=== PATIENT | female | born 1935 | race Caucasian/White ===

== ENCOUNTER 2019-05-01 09:54 | Inpatient (IN) | payer MEDICARE, OTHER ==
[~2019-05-01] VITALS: Ht 160 cm; Wt 108.9 kg
[~2019-05-01 09:54] MED LIST: ACTOS15 MG PO; BILBERRY PO; CLOPIDOGREL75 MG PO; FLECAINIDE ACE100 MG PO; LEVEMIR 3M100 UNITS/ SQ; METOPROLOL TART25 MG PO; NOVALOG; NOVALOG SQ; NOVOLOG MI100 UNITS/ SQ; Z ARMOUR THYROID PO; Z VITAMIN D PO; Z.0.LANTUS100 UNIT/1 SQ; Z.0.MAGNESIUM400 MG; Z.0.VITAMIN B12-FO1 PO; Z.4.VITAMIN E400 UNI
--- OUTSIDE RECORDS SUMMARY | 2019-05-01 09:59 | XMS REPORT ---
Author Author [facility] Address Unknown Phone Unavailable Care Team Providers Care Director Supply Name Role Phone Unavailable Unavailable Problems This patient has no known problems. Allergies, Adverse Reactions, Alerts This patient has no known allergies or adverse reactions. Medications This patient has no known medications.
--- OUTSIDE RECORDS SUMMARY | 2019-05-01 09:59 | XMS REPORT | Summary of Care ---
Author Organization Unknown Address Unknown Phone Unavailable Encounter VINCENZO Ramos(RADHA) [id number] Date(s): 09/12/14 - 09/12/14 [facility] [address] [address] - [facility] Discharge Diagnosis: Acute head injury Discharge Diagnosis: Accidental fall Discharge Disposition: Home Physician Attending: Fazal Yousif MD Reason for Visit FALL Vital Signs Most recent to 1 2 oldest [Reference Range]: Height 162.56 cm (09/12/14 12:08 AM) Temperature Oral 98.9 DegF 100.1 DegF [96.4-99.1 DegF] (09/12/14 3:00 AM) *HI* (09/12/14 12:08 AM) Systolic Blood 148 mmHg 152 mmHg Pressure [90-140 *HI* *HI* mmHg] (09/12/14 3:00 AM) (09/12/14 12:08 AM) Diastolic Blood 76 mmHg 73 mmHg Pressure [60-90 (09/12/14 3:00 AM) (09/12/14 12:08 AM) mmHg] Respiratory Rate 20 BRMIN 20 BRMIN [14-20 BRMIN] (09/12/14 3:00 AM) (09/12/14 12:08 AM) Peripheral Pulse 102 bpm 110 bpm Rate [60-100 bpm] *HI* *HI* (09/12/14 3:00 AM) (09/12/14 12:08 AM) Weight 100 kg (09/12/14 12:08 AM) Body Mass Index 37.84 m2 (09/12/14 12:08 AM) Problem List Condition Effective Dates Status Health Status Informant Diabetes(Confirmed) Active High Active triglycerides(Confir med) Hypothyroid(Confirme Active d) Pain(Confirmed) Active Allergies, Adverse Reactions, Alerts Substance Reaction Severity Status NKDA Active Medications acetaminophen 650 mg, 2 tab, Route: PO, Drug form: TAB, ONCE, Dosing Weight 100, kg, Priority: STAT, Start date: 09/12/14 2:13:00, Stop date: 09/12/14 2:13:00 Notes: Do not exceed 4 gm/day. (Same as: Tylenol) Start Date: 09/12/14 Stop Date: 09/12/14 Status: Completed azithromycin 500 mg, 2 tab, Route: PO, Drug form: TAB, ONCE, Dosing Weight 100, kg, Start kit e: 09/12/14 2:12:00, Stop date: 09/12/14 2:12:00 Notes: Take 1 hour before or 2 hours after meals.(Same As: Zithromax) Start Date: 09/12/14 Stop Date: 09/12/14 Status: Completed azithromycin 500 mg oral tablet 500 mg=1 tab, PO, Daily, # 10 tab, 0 Refill(s) Start Date: 09/12/14 Stop Date: 09/22/14 Status: Ordered Results ELECTROLYTES Most recent to 1 oldest [Reference Range]: Sodium Lvl [135-145 132 mEq/L mEq/L] *LOW* (09/12/14 12:54 AM) Potassium Lvl 3.9 mEq/L [3.5-5.1 mEq/L] (09/12/14 12:54 AM) Chloride Lvl [95-109 99 mEq/L mEq/L] (09/12/14 12:54 AM) CO2 [24-32 mEq/L] 24 mEq/L (09/12/14 12:54 AM) AGAP [10.0-20.0 12.9 mEq/L mEq/L] (09/12/14 12:54 AM) CHEM PANEL Most recent to 1 oldest [Reference Range]: Creatinine Lvl 0.7 mg/dL [0.5-1.4 mg/dL] (09/12/14 12:54 AM) eGFR 83 mL/min/1.73m2 1 *NA* (09/12/14 12:54 AM) BUN [7-22 mg/dL] 13 mg/dL (09/12/14 12:54 AM) B/C Ratio [6-25] 19 (09/12/14 12:54 AM) Glucose Lvl [70-99 220 mg/dL 2 mg/dL] *HI* (09/12/14 12:54 AM) Total Protein 8.0 g/dL [6.4-8.4 g/dL] (09/12/14 12:54 AM) Albumin Lvl [3.5-5.0 3.5 g/dL g/dL] (09/12/14 12:54 AM) Globulin [2.0-4.0 4.5 g/dL g/dL] *HI* (09/12/14 12:54 AM) A/G Ratio [0.7-1.6] 0.8 (09/12/14 12:54 AM) Calcium Lvl 8.6 mg/dL [8.5-10.5 mg/dL] (09/12/14 12:54 AM) ALT [0-65 unit/L] 50 unit/L (09/12/14 12:54 AM) AST [0-37 unit/L] 56 unit/L *HI* (09/12/14 12:54 AM) Alk Phos [39-136 128 unit/L unit/L] (09/12/14 12:54 AM) Bili Total [0.2-1.3 0.3 mg/dL mg/dL] (09/12/14 12:54 AM) 1Result Comment: The eGFR is calculated using the CKD-EPI formula. In most young, healthy individuals the eGFR will be >90 mL/min/1.73m2. The eGFR declines with age. An eGFR of 60-89 may be normal in some populations, particularly the elderly, for whom the CKD-EPI formula has not been extensively validated. Use of the eGFR is not recommended in the following populations: Individuals with unstable creatinine concentrations, including patients and those with serious co-morbid conditions. Patients with extremes in muscle mass or diet. The data above are obtained from the National Kidney Disease Education Program ( NKDEP) which additionally recommends that when the eGFR is used in patients with extremes of body mass index for purposes of drug dosing, the eGFR should be mul tiplied by the estimated BMI. 2Interpretive Data: Adult reference range values reflect the clinical guidelines of the [place] [employer]. URINE AND STOOL Most recent to 1 oldest [Reference Range]: UA Turbidity [Clear] Clear (09/12/14 12:57 AM) UA Color Ltyellow *NA* (09/12/14 12:57 AM) UA pH [5.0-8.0] 5.0 (09/12/14 12:57 AM) UA Spec Grav 1.014 [<=1.030] (09/12/14 12:57 AM) UA Glucose [Negative 500 mg/dL mg/dL] *ABN* (09/12/14 12:57 AM) UA Blood [Negative] Small *ABN* (09/12/14 12:57 AM) UA Ketones [Negative Trace mg/dL mg/dL] *ABN* (09/12/14 12:57 AM) UA Protein [Negative 30 mg/dL mg/dL] *ABN* (09/12/14 12:57 AM) UA Urobilinogen <=1.0 mg/dL [0.1-1.0 mg/dL] *NA* (09/12/14 12:57 AM) UA Bili [Negative] Negative *NA* (09/12/14 12:57 AM) UA Leuk Est Negative [Negative] (09/12/14 12:57 AM) UA Nitrite Negative [Negative] (09/12/14 12:57 AM) UA WBC [0-5 /HPF] 5 /HPF (09/12/14 12:57 AM) UA RBC [0-2 /HPF] 3 /HPF *HI* (09/12/14 12:57 AM) UA Bacteria [None Many /HPF Seen /HPF] *ABN* (09/12/14 12:57 AM) UA Sq Epi [Few /LPF] Occasional /LPF *NA* (09/12/14 12:57 AM) UA Mucus [None Seen Few /LPF /LPF] *NA* (09/12/14 12:57 AM) HEMATOLOGY Most recent to 1 oldest [Reference Range]: WBC [3.7-10.4 K/CMM] 10.0 K/CMM (09/12/14 12:54 AM) RBC [4.20-5.40 4.73 M/CMM M/CMM] (09/12/14 12:54 AM) Hgb [12.0-16.0 g/dL] 13.2 g/dL (09/12/14 12:54 AM) Hct [36.0-48.0 %] 39.6 % (09/12/14 12:54 AM) MCV [80.0-98.0 fL] 83.8 fL (09/12/14 12:54 AM) MCH [27.0-31.0 pg] 27.9 pg (09/12/14 12:54 AM) MCHC [32.0-36.0 33.4 g/dL g/dL] (09/12/14 12:54 AM) RDW [11.5-14.5 %] 15.5 % *HI* (09/12/14 12:54 AM) Platelet [133-450 148 K/CMM K/CMM] (09/12/14 12:54 AM) MPV [7.4-10.4 fL] 7.4 fL (09/12/14 12:54 AM) Segs [45.0-75.0 %] 83.4 % *HI* (09/12/14 12:54 AM) Lymphocytes 8.3 % [20.0-40.0 %] *LOW* (09/12/14 12:54 AM) Monocytes [2.0-12.0 7.5 % %] (09/12/14 12:54 AM) Eosinophils [0.0-4.0 0.1 % %] (09/12/14 12:54 AM) Basophils [0.0-1.0 0.7 % %] (09/12/14 12:54 AM) Segs-Bands # 8.4 K/CMM [1.5-8.1 K/CMM] *HI* (09/12/14 12:54 AM) Lymphocytes # 0.8 K/CMM [1.0-5.5 K/CMM] *LOW* (09/12/14 12:54 AM) Monocytes # [0.0-0.8 0.8 K/CMM K/CMM] (09/12/14 12:54 AM) Basophils # [0.0-0.2 0.1 K/CMM K/CMM] (09/12/14 12:54 AM) Medications Administered During Your Visit No data available for this section Immunizations Vaccine Date Refusal Reason diphtheria/pertussis, acel/tetanus adult 3/15/12 Procedures Procedure Type Body Site Date of Procedure Related Diagnosis Mastectomy of left breast Urethral operation Social History Social History Type Response Smoking Status Unknown if ever smoked, Exposure to Tobacco Smoke None, Cigarette Smoking Last 365 Days No, Reg Smoking Cessation Counseling No
--- OUTSIDE RECORDS SUMMARY | 2019-05-01 09:59 | XMS REPORT | Summary of Care ---
Author Organization Unknown Address Unknown Phone Unavailable Encounter [facility] Cristar_jane(FIN) [id number] Date(s): 11/23/14 - 12/22/14 [facility] Discharge Disposition: Home Physician Attending: Nadir Chatterjee MD Vital Signs No data available for this section Problem List Condition Effective Dates Status Health Status Informant Diabetes(Confirmed) Active High Active triglycerides(Confir med) Hypothyroid(Confirme Active d) Pain(Confirmed) Active Allergies, Adverse Reactions, Alerts Substance Reaction Severity Status NKDA Active Medications No data available for this section Results No data available for this section Immunizations Vaccine Date Refusal Reason diphtheria/pertussis, acel/tetanus adult 11/12/11 Procedures Procedure Date Related Diagnosis Body Site Mastectomy of left breast Urethral operation Social History Social History Type Response Smoking Status Unknown if ever smoked; Exposure to Tobacco Smoke None; Cigarette Smoking Last 365 Days No; Reg Smoking Cessation Counseling No Assessment and Plan No data available for this section
--- OUTSIDE RECORDS SUMMARY | 2019-05-01 09:59 | XMS REPORT | Summary of Care ---
Author Author [facility] [place] Organization [facility] [place] Address Unknown Phone Unavailable Encounter [facility] Richard(FIN) [id number] Date(s): 08/18/17 - 08/18/17 [facility] [address] [place] [phone] Discharge Disposition: Home or Self Care Attending Physician: Flex Pena MD Vital Signs No data available for this section Problem List Condition Effective Dates Status Health Status Informant Diabetes(Confirmed) Active High Active triglycerides(Confir med) Hypothyroid(Confirme Active d) Pain(Confirmed) Active Allergies, Adverse Reactions, Alerts Substance Reaction Severity Status NKDA Active Medications No data available for this section Results No data available for this section Immunizations Given and Recorded Vaccine Date Status Refusal Reason diphtheria/pertussis, acel/tetanus adult 11/12/11 Given Procedures Procedure Date Related Diagnosis Body Site Mastectomy of left breast Urethral operation Social History Social History Type Response Smoking Status Unknown if ever smoked; Exposure to Tobacco Smoke None; Cigarette Smoking Last 365 Days No; Reg Smoking Cessation Counseling No Assessment and Plan No data available for this section
--- OUTSIDE RECORDS SUMMARY | 2019-05-01 09:59 | XMS REPORT | CCD ---
Author Author Auto Generated Organization [facility] Address Unknown Phone Unavailable Care Team Providers Care Assembler Filters Name Role Phone Edu Swift CP Allergies, Adverse Reactions, Alerts Substance Reaction Status acetaminophen Canceled all over the counter asprin Canceled Bextra Canceled Macrodantin Canceled naproxen Canceled NKDA Active Vioxx Canceled Problem List Condition Effective Dates Status Pain Active Medications Medication Instructions Start Date End Date Status Lovenox 40 mg, 0.4 mL, Route: SUB-Q, Drug 11/14/2011 11/18/2011 Discontinued form: INJ, Daily, Start date: 11/14/11 9:00:00, Duration: 30 day, Stop date: 12/13/11 9:00:00 bisacodyl 10 mg, 1 supp, Route: MN, Drug 11/17/2011 11/18/2011 Discontinued form: SUPP, Daily, PRN Constipation, Priority: NOW, Start date: 11/17/11 14:13:00, Duration: 30 day, Stop date: 12/17/11 14:12:00 metoprolol 12.5 mg, 1 ea, Route: PO, Drug 11/13/2011 11/14/2011 Discontinued form: TAB, BID, Start date: 11/13/11 9:00:00, Duration: 30 day, Stop date: 12/12/11 17:00:00 [place] Thyroid 120 mg, 2 tab, Route: PO, Drug 11/13/2011 11/18/2011 Discontinued form: TAB, Daily, Start date: 11/13/11 9:00:00, Duration: 30 day, Stop date: 12/12/11 9:00:00 Lantus Route: SUB-Q, Drug form: INJ, 11/13/2011 11/18/2011 Discontinued Bedtime, Start date: 11/13/11 21:00:00, Duration: 30 day, Stop date: 12/12/11 21:00:00 aspirin 81 mg 81 mg, 1 tab, Route: PO, Drug form: 11/13/2011 11/18/2011 Discontinued tablet, enteric ECTAB, Daily, Start date: 11/13/11 coated 9:00:00, Duration: 30 day, Stop date: 12/12/11 9:00:00 lactulose 10 gm, 15 ml, Route: PO, Drug Form: 11/17/2011 11/18/2011 Discontinued SYRP, QID, PRN Constipation, Start date: 11/17/11 13:55:00, Duration: 30 day, Stop date: 12/17/11 13:54:00 insulin aspart 15 unit, 0.15 mL, Route: SUB-Q, 11/14/2011 11/18/2011 Discontinued Drug form: SOLN, TID, Priority: NOW, Start date: 11/14/11 16:06:00, Stop date: 12/14/11 13:00:00 propofol 100 mg, 10 mL, Route: IVP, Drug 11/12/2011 11/12/2011 Discontinued form: SUSP, ONCE, Priority: STAT, Start date: 11/12/11 21:43:00, Stop date: 11/12/11 21:43:00 fentanyl 50 microgram, 1 mL, Route: IVP, 11/12/2011 11/12/2011 Completed Drug form: INJ, ONCE, Priority: STAT, Start date: 11/12/11 21:43:00, Stop date: 11/12/11 21:43:00 gentamicin 668.185 mg, 16.7 mL, Route: IVPB, 11/12/2011 11/13/2011 Completed ONCE, Priority: STAT, Start date: 11/12/11 21:42:00, Stop date: 11/12/11 21:42:00 [place] Thyroid 120 120 mg, 1 tab, Daily, Substitution 11/13/2011 Ordered mg oral tablet Allowed Dilaudid 1 mg, 0.5 mL, Route: IV, Drug form: 11/13/2011 11/16/2011 Discontinued INJ, Q3H, PRN Pain, Start date: 11/13/11 6:46:00, Duration: 30 day, Stop date: 12/13/11 6:45:00 aspirin 81 mg 81 mg, 1 tab, PO, Daily, 11/13/2011 Ordered tablet, enteric Substitution Allowed coated tetanus-diphtheria 0.5 ml, Route: IM, Drug Form: INJ, 11/12/2011 11/12/2011 Discontinued toxoids adult ONCE, STAT, Start date: 11/12/11 intramuscular 21:41:00, Stop date: 11/12/11 suspension 21:41:00 cefazolin 1 gm, Route: IVPB, Drug form: 11/12/2011 11/12/2011 Completed PDR/INJ, ONCE, Priority: STAT, Start date: 11/12/11 21:41:00, Stop date: 11/12/11 21:41:00 [place] 5/325 oral 1 tab, Route: PO, Drug Form: TAB, 11/13/2011 11/16/2011 Discontinued tablet Q6H, Start date: 11/13/11 12:00:00, Duration: 30 day, Stop date: 12/13/11 6:00:00 Lantus 45units, SUB-Q, Bedtime, 11/13/2011 Ordered Substitution Allowed hydromorphone 1 mg, 0.5 mL, Route: IVP, Drug 11/13/2011 11/13/2011 Completed form: INJ, ONCE, Priority: STAT, Start date: 11/13/11 2:11:00, Stop date: 11/13/11 2:11:00 NovoLog 15 unit, SUB-Q, TID-Before Meals, 11/13/2011 Ordered Substitution Allowed Ativan 0.5 mg, 0.25 mL, Route: IVP, Drug 11/13/2011 11/13/2011 Completed form: INJ, ONCE, PRN Anxiety, Start date: 11/13/11 2:11:00 insulin aspart 1 unit, 0.01 mL, Route: SUB-Q, Drug 11/13/2011 11/17/2011 Discontinued form: SOLN, TID-Before Meals, PRN Blood Glucose Results, Start date: 11/13/11 4:12:00, Duration: 30 day, Stop date: 12/13/11 4:11:00 insulin aspart 4 unit, 0.04 mL, Route: SUB-Q, Drug 11/13/2011 11/17/2011 Discontinued form: SOLN, TID-Before Meals, PRN Blood Glucose Results, Start date: 11/13/11 4:12:00, Duration: 30 day, Stop date: 12/13/11 4:11:00 insulin aspart 2 unit, 0.02 mL, Route: SUB-Q, Drug 11/13/2011 11/17/2011 Discontinued form: SOLN, TID-Before Meals, PRN Blood Glucose Results, Start date: 11/13/11 4:12:00, Duration: 30 day, Stop date: 12/13/11 4:11:00 insulin aspart 3 unit, 0.03 mL, Route: SUB-Q, Drug 11/13/2011 11/17/2011 Discontinued form: SOLN, TID-Before Meals, PRN Blood Glucose Results, Start date: 11/13/11 4:12:00, Duration: 30 day, Stop date: 12/13/11 4:11:00 insulin aspart 5 unit, 0.05 mL, Route: SUB-Q, Drug 11/13/2011 11/17/2011 Discontinued form: SOLN, TID-Before Meals, PRN Blood Glucose Results, Start date: 11/13/11 4:12:00, Duration: 30 day, Stop date: 12/13/11 4:11:00 ketorolac 30 mg/mL 30 mg, Route: IVP, ONCE, Start 11/13/2011 11/13/2011 Completed injectable solution date: 11/13/11 16:02:00, Stop date: 11/13/11 16:02:00 lactulose 10 g/15 mL 10 gm, 15 mL, PO, QID, PRN, 840 mL, 11/18/2011 12/02/2011 Ordered oral syrup Constipation, Substitution Allowed, Maintenance, SYRP Lovenox 40 mg/0.4 mL 40 mg, 0.4 mL, SUB-Q, Daily, 8 mL, 11/18/2011 12/08/2011 Ordered subcutaneous Substitution Allowed, SOLN solution Milk of Magnesia 10 mL, Route: PO, Drug Form: SUSP, 11/16/2011 11/18/2011 Discontinued BID, PRN as needed for constipation, NOW, Start date: 11/16/11 11:31:00, Duration: 30 day, Stop date: 12/16/11 11:30:00 Senokot S oral 2 tab, PO, BID, 56 tab, 11/18/2011 12/02/2011 Ordered tablet Substitution Allowed, Maintenance, TAB bisacodyl 10 mg 10 mg, 1 supp, MN, Daily, PRN, 14 11/18/2011 12/02/2011 Ordered rectal suppository supp, Constipation, Substitution Allowed, SUPP acetaminophen-hydroc 1 tab, PO, Q4H, PRN, 84 tab, Pain 11/18/2011 12/02/2011 Ordered odone 325 mg-5 mg Score 1-3, Substitution Allowed, oral tablet Maintenance, TAB insulin aspart 10 unit, 0.1 mL, Route: SUB-Q, Drug 11/17/2011 11/18/2011 Discontinued form: SOLN, TID-Before Meals, PRN Blood Glucose Results, Start date: 11/17/11 20:24:00, Duration: 30 day, Stop date: 12/17/11 20:23:00 insulin aspart 2 unit, 0.02 mL, Route: SUB-Q, Drug 11/17/2011 11/18/2011 Discontinued form: SOLN, TID-Before Meals, PRN Blood Glucose Results, Start date: 11/17/11 20:24:00, Duration: 30 day, Stop date: 12/17/11 20:23:00 insulin aspart 4 unit, 0.04 mL, Route: SUB-Q, Drug 11/17/2011 11/18/2011 Discontinued form: SOLN, TID-Before Meals, PRN Blood Glucose Results, Start date: 11/17/11 20:24:00, Duration: 30 day, Stop date: 12/17/11 20:23:00 insulin aspart 8 unit, 0.08 mL, Route: SUB-Q, Drug 11/17/2011 11/18/2011 Discontinued form: SOLN, TID-Before Meals, PRN Blood Glucose Results, Start date: 11/17/11 20:24:00, Duration: 30 day, Stop date: 12/17/11 20:23:00 insulin aspart 6 unit, 0.06 mL, Route: SUB-Q, Drug 11/17/2011 11/18/2011 Discontinued form: SOLN, TID-Before Meals, PRN Blood Glucose Results, Start date: 11/17/11 20:24:00, Duration: 30 day, Stop date: 12/17/11 20:23:00 lactulose 10 gm, 15 ml, Route: PO, Drug Form: 11/17/2011 11/18/2011 Discontinued SYRP, QID, PRN Constipation, Start date: 11/17/11 18:08:00, Duration: 30 day, Stop date: 12/17/11 18:07:00 promethazine 12.5 mg, Route: IVPB, ONCE, 11/12/2011 11/12/2011 Completed Priority: STAT, Start date: 11/12/11 22:25:00, Stop date: 11/12/11 22:25:00 acetaminophen-hydroc 2 tab, Route: PO, Drug Form: TAB, 11/13/2011 11/18/2011 Discontinued odone 325 mg-5 mg Q4H, PRN Pain Score 4-6, Start oral tablet date: 11/13/11 4:09:00, Duration: 30 day, Stop date: 12/13/11 4:08:00 acetaminophen 650 mg, 2 tab, Route: PO, Drug 11/13/2011 11/18/2011 Discontinued form: TAB, Q4H, PRN Pain/Fever, Start date: 11/13/11 4:09:00, Duration: 30 day, Stop date: 12/13/11 4:08:00 temazepam 15 mg, 1 cap, Route: PO, Drug form: 11/13/2011 11/18/2011 Discontinued CAP, Bedtime, PRN Insomnia, Start date: 11/13/11 4:09:00, Duration: 30 day, Stop date: 12/13/11 4:08:00 morphine Sulfate 2 mg, 0.5 mL, Route: IVP, Drug 11/13/2011 11/13/2011 Discontinued form: INJ, Q3H, PRN Pain Score 4-6, Start date: 11/13/11 4:09:00, Duration: 30 day, Stop date: 12/13/11 4:08:00 acetaminophen-hydroc 1 tab, Route: PO, Drug Form: TAB, 11/13/2011 11/18/2011 Discontinued odone 325 mg-5 mg Q4H, PRN Pain Score 1-3, Start oral tablet date: 11/13/11 4:09:00, Duration: 30 day, Stop date: 12/13/11 4:08:00 docusate 100 mg, 1 cap, Route: PO, Drug 11/13/2011 11/18/2011 Discontinued form: CAP, BID, PRN Constipation, Start date: 11/13/11 4:09:00, Duration: 30 day, Stop date: 12/13/11 4:08:00 ondansetron 4 mg, 2 mL, Route: IVP, Drug form: 11/13/2011 11/18/2011 Discontinued INJ, Q6H, PRN Nausea & Vomiting, Start date: 11/13/11 4:09:00, Duration: 30 day, Stop date: 12/13/11 4:08:00 morphine Sulfate 4 mg, 1 mL, Route: IVP, Drug form: 11/12/2011 11/13/2011 Completed INJ, ONCE, Priority: STAT, Start date: 11/12/11 22:25:00, Stop date: 11/12/11 22:25:00 Sodium Chloride 0.9% 1,000 mL, Rate: 1,000 ml/hr, Infuse 11/12/2011 11/12/2011 Completed (Bolus) IV 1000 mL over: 1 hr, Route: IV, kg, Total Volume: 1,000, Bolus Dose, Priority: STAT, Start date: 11/12/11 22:25:00, Duration: 1 doses or times, Stop date: 11/12/11 23:24:00 NS 1,000 mL 1,000 mL, Rate: 100 ml/hr, Infuse 11/13/2011 11/14/2011 Discontinued over: 10 hr, Route: IV, Dosing Weight 101.4 kg, Total Volume: 1,000, Start date: 11/13/11 4:12:00, Duration: 30 day, Stop date: 12/13/11 4:11:00 droperidol 1.25 mg, 0.5 mL, Route: IVP, Drug 11/12/2011 11/12/2011 Completed form: INJ, ONCE, PRN Nausea & Vomiting, Start date: 11/12/11 21:47:00 Zofran 8 mg, Route: IV, ONCE, Start date: 11/12/2011 11/12/2011 Completed 11/12/11 21:47:00, Stop date: 11/12/11 21:47:00 Senokot S oral 2 tab, Route: PO, Drug Form: TAB, 11/17/2011 11/18/2011 Discontinued tablet BID, NOW, Start date: 11/17/11 18:06:00, Duration: 30 day, Stop date: 12/17/11 17:00:00 tetanus/diphtheria/p 0.5 ml, Route: IM, ONCE, Start 11/12/2011 11/12/2011 Completed ertussis, acel date: 11/12/11 21:59:00, Stop date: (Tdap) 5 units-2.5 11/12/11 21:59:00 units-18.5 mcg/0.5 mL intramuscular suspensio propofol 30 mg, 3 mL, Route: IVP, Drug form: 11/12/2011 11/12/2011 Completed SUSP, ONCE, Start date: 11/12/11 22:22:00, Stop date: 11/12/11 22:22:00 fentanyl 50 microgram, 1 mL, Route: IVP, 11/12/2011 11/12/2011 Completed Drug form: INJ, ONCE, Priority: STAT, Start date: 11/12/11 22:21:00, Stop date: 11/12/11 22:21:00 propofol 70 mg, 7 mL, Route: IVP, Drug form: 11/12/2011 11/12/2011 Completed SUSP, ONCE, Start date: 11/12/11 22:21:00, Stop date: 11/12/11 22:21:00 Ancef 1 gm, Route: IVPB, Drug form: 11/13/2011 11/13/2011 Discontinued PDR/INJ, [id number], Start date: 11/13/11 5:00:00, Stop date: 12/12/11 21:00:00 Sodium Chloride 0.9% 1,000 mL, Rate: 100 ml/hr, Infuse 11/13/2011 11/13/2011 Discontinued IV 1,000 mL over: 10 hr, Route: IV, Dosing Weight 101.4 kg, Total Volume: 1,000, Start date: 11/13/11 3:13:00, Duration: 30 day, Stop date: 12/13/11 3:12:00 insulin regular 3 unit, 0.03 mL, Route: SUB-Q, Drug 11/15/2011 11/17/2011 Discontinued human recombinant form: SOLN, PRN, PRN Abnormal Lab 100 units/mL Result, Start date: 11/15/11 injectable solution 10:22:00, Duration: 30 day, Stop date: 12/15/11 10:21:00 Dextrose 50% Syringe 6.25 gm, 12.5 mL, Route: IVP, Drug 11/15/2011 11/18/2011 Discontinued Form: INJ, PRN, PRN Abnormal Lab Result, Start date: 11/15/11 10:22:00, Duration: 30 day, Stop date: 12/15/11 10:21:00 Dextrose 50% Syringe 12.5 gm, 25 mL, Route: IVP, Drug 11/15/2011 11/18/2011 Discontinued Form: INJ, PRN, PRN Abnormal Lab Result, Start date: 11/15/11 10:22:00, Duration: 30 day, Stop date: 12/15/11 10:21:00 Dextrose 50% Syringe 25 gm, 50 mL, Route: IVP, Drug 11/15/2011 11/18/2011 Discontinued Form: INJ, PRN, PRN Abnormal Lab Result, Start date: 11/15/11 10:22:00, Duration: 30 day, Stop date: 12/15/11 10:21:00 insulin regular 7 unit, 0.07 mL, Route: SUB-Q, Drug 11/15/2011 11/17/2011 Discontinued human recombinant form: SOLN, PRN, PRN Abnormal Lab 100 units/mL Result, Start date: 11/15/11 injectable solution 10:22:00, Duration: 30 day, Stop date: 12/15/11 10:21:00 insulin regular 5 unit, 0.05 mL, Route: SUB-Q, Drug 11/15/2011 11/17/2011 Discontinued human recombinant form: SOLN, PRN, PRN Abnormal Lab 100 units/mL Result, Start date: 11/15/11 injectable solution 10:22:00, Duration: 30 day, Stop date: 12/15/11 10:21:00 hydromorphone 1 mg, 0.5 mL, Route: IVP, Drug 11/13/2011 11/13/2011 Completed form: INJ, ONCE, Priority: STAT, Start date: 11/13/11 4:00:00, Stop date: 11/13/11 4:00:00 cefazolin 1 gm, Route: IVPB, Drug form: 11/13/2011 11/16/2011 Completed PDR/INJ, ABXQ8H, Start date: 11/13/11 15:00:00, Duration: 72 hr, Stop date: 11/16/11 4:00:00 Lactated Ringers IV 1,000 mL, Rate: 125 ml/hr, Infuse 11/13/2011 11/18/2011 Discontinued 1,000 mL over: 8 hr, Route: IV, Dosing Weight 101.3 kg, Total Volume: 1,000, Start date: 11/13/11 14:56:00, Duration: 30 day, Stop date: 12/13/11 14:55:00 Immunizations Vaccine Date Status diphtheria/pertussis, acel/tetanus adult 11/12/2011 Auth (Verified) Vital Signs Most recent to oldest [Reference Range]: 1 2 3 Height 162.56 cm (11/12/2011 21:30:00) Temperature Oral [96.4-99.1 DegF] 98.1 DegF (11/18/2011 11:26:00) 98.2 DegF (11/18/2011 08:21:00) 98.0 DegF (11/18/2011 03:50:00) Systolic Blood Pressure [90-140 mmHg] 143 mmHg *HI* (11/18/2011 11:26:00) 125 mmHg (11/18/2011 08:21:00) 109 mmHg (11/18/2011 03:50:00) Diastolic Blood Pressure [60-90 mmHg] 56 mmHg *LOW* (11/18/2011 11:26:00) 56 mmHg *LOW* (11/18/2011 08:21:00) 51 mmHg *LOW* (11/18/2011 03:50:00) Respiratory Rate [14-20 BRMIN] 18 BRMIN (11/18/2011 11:26:00) 20 BRMIN (11/18/2011 08:21:00) 18 BRMIN (11/18/2011 03:50:00) Peripheral Pulse Rate [60-100 bpm] 76 bpm (11/18/2011 11:26:00) 66 bpm (11/18/2011 08:21:00) 97 bpm (11/18/2011 03:50:00) Weight 101.364 kg (11/12/2011 21:30:00) Results BEDSIDE GLUCOSE TESTING Most recent to [Reference Range]: 1 2 3 Gluc POC Lifscn [70-99 mg/dL] 151 mg/dL 1 *HI* (11/18/2011 12:14:00) 193 mg/dL 2 *HI* (11/18/2011 09:38:00) Gluc POC Lifscn [65-110 mg/dL] 150 mg/dL 3 *HI* (11/18/2011 06:03:00) Comment1 Notify RN/MD *NA* (11/16/2011 05:34:00) Notify RN/MD *NA* (11/15/2011 21:56:00) Notify RN/MD *NA* (11/15/2011 18:26:00) 1Interpretive Data: Upper Reportable Limit: 200 mg/dL. 2Interpretive Data: Upper Reportable Limit: 200 mg/dL. 3Interpretive Data: Upper Reportable Limit: 200 mg/dL. BLOOD BANK RESULTS Most recent to oldest [Reference Range]: 1 2 3 ABO/Rh O NEG *Unknown* (11/12/2011 21:42:00) Antibody Scrn Negative (11/12/2011 21:42:00) CHEMISTRY Most recent to oldest [Reference Range]: 1 2 3 Sodium Lvl [135-145 mEq/L] 137 mEq/L (11/14/2011 04:05:00) 139 mEq/L (11/12/2011 22:00:00) Potassium Lvl [3.5-5.1 mEq/L] 4.8 mEq/L (11/14/2011 04:05:00) 3.6 mEq/L (11/12/2011 22:00:00) Chloride Lvl [95-109 mEq/L] 104 mEq/L (11/14/2011 04:05:00) 102 mEq/L (11/12/2011 22:00:00) CO2 [24-32 mEq/L] 22 mEq/L *LOW* (11/14/2011 04:05:00) 26 mEq/L (11/12/2011 22:00:00) AGAP [10.0-20.0 mEq/L] 15.8 mEq/L (11/14/2011 04:05:00) 14.6 mEq/L (11/12/2011 22:00:00) Creatinine Lvl [0.5-1.4 mg/dL] 0.7 mg/dL (11/14/2011 04:05:00) 0.9 mg/dL (11/12/2011 22:00:00) BUN [7-22 mg/dL] 10 mg/dL (11/14/2011 04:05:00) 19 mg/dL (11/12/2011 22:00:00) B/C Ratio [6-25] 21 (11/12/2011 22:00:00) Glucose Lvl 161 mg/dL 4 *NA* (11/14/2011 04:05:00) 193 mg/dL 5 *NA* (11/12/2011 22:00:00) Total Protein [6.4-8.4 g/dL] 7.4 g/dL (11/12/2011 22:00:00) Albumin Lvl [3.5-5.0 g/dL] 3.4 g/dL *LOW* (11/12/2011 22:00:00) Globulin [2.0-4.0 g/dL] 4.0 g/dL (11/12/2011 22:00:00) A/G Ratio [0.7-1.6] 0.9 (11/12/2011 22:00:00) Calcium Lvl [8.5-10.5 mg/dL] 7.9 mg/dL *LOW* (11/14/2011 04:05:00) 9.2 mg/dL (11/12/2011 22:00:00) Phosphorus [2.5-4.5 mg/dL] 2.7 mg/dL (11/15/2011 05:12:00) 2.9 mg/dL (11/12/2011 22:00:00) Magnesium Lvl [1.8-2.4 mg/dL] 2.1 mg/dL (11/15/2011 05:12:00) 1.8 mg/dL (11/12/2011 22:00:00) ALT [0-65 U/L] 37 U/L (11/12/2011 22:00:00) AST [0-37 U/L] 21 U/L (11/12/2011 22:00:00) Alk Phos [39-136 U/L] 175 U/L *HI* (11/12/2011 22:00:00) Bili Total [0.2-1.3 mg/dL] 0.2 mg/dL (11/12/2011 22:00:00) Vitamin D, 25-OH, Total [30-100 ng/mL] 12 ng/mL 6 *LOW* (11/15/2011 05:12:00) Vitamin D2 25-OH <4 ng/mL 7 *NA* (11/15/2011 05:12:00) Vitamin D3 25-OH 12 ng/mL *NA* (11/15/2011 05:12:00) Hgb A1C 8.5 % 8 *NA* (11/13/2011 06:49:00) Osteocalcin, N-MID [8-32 ng/mL] 6 ng/mL 9 *LOW* (11/15/2011 05:12:00) TSH [0.360-3.740 uIU/mL] 1.170 uIU/mL (11/13/2011 06:49:00) PTH Intact [11.1-79.5 pg/mL] 38.3 pg/mL (11/15/2011 05:12:00) 4Interpretive Data: Reference Ranges : 0 - 7 days : 41 - 90 mg/dL7 days - 150 yrs : 70 - 99 mg/dL (fasting), based on the clinical recommendations of the [place] [employer]. 5Interpretive Data: Reference Ranges : 0 - 7 days : 41 - 90 mg/dL7 days - 150 yrs : 70 - 99 mg/dL (fasting), based on the clinical recommendations of the [place] [employer]. 6Result Comment: 25-OHD3 indicates both endogenous production andsupplementation. 25-OHD2 is an indicator ofexogenous sources such as diet or supplementation.Therapy is based on measurement of Total 25-OHD,with levels <20 ng/mL indicative of Vitamin Ddeficiency, while levels between 20 ng/mL and 30 ng/mL suggest insufficiency. Optimal levels are>=30 ng/mL. 7Result Comment: Test Performed at:[id number] [place] [address] Denise Mayer MD, PhD 8Interpretive Data: HbA1C% eAG(mg/dL) Interpretation 6.0 126 Very good control 6.5 140 Very good control 7.0 154 Good Control 7.5 169 Good Control 8.0 183 Marginal Control, take action to lower 8.5 197 Marginal Control, take action to lower 9.0 212 Poor Control, take action to lower 9.5 226 Poor Control, take action to lower10.0 240 Poor Control, take action to lower 9Result Comment: Test Performed at:[id number] [facility] [place] [address] Denise Mayer MD, PhD HEMATOLOGY Most recent to oldest [Reference Range]: 1 2 3 WBC [3.7-10.4 K/CMM] 7.6 K/CMM (11/17/2011 03:15:00) 9.8 K/CMM (11/16/2011 01:15:00) 10.6 K/CMM *HI* (11/14/2011 04:05:00) RBC [4.20-5.40 M/CMM] 3.42 M/CMM *LOW* (11/17/2011 03:15:00) 3.53 M/CMM *LOW* (11/16/2011 01:15:00) 3.88 M/CMM *LOW* (11/14/2011 04:05:00) Hgb [12.0-16.0 g/dL] 9.8 g/dL *LOW* (11/17/2011 03:15:00) 10.2 g/dL *LOW* (11/16/2011 01:15:00) 11.2 g/dL *LOW* (11/14/2011 04:05:00) Hct [36.0-48.0 %] 29.0 % *LOW* (11/17/2011 03:15:00) 29.9 % *LOW* (11/16/2011 01:15:00) 33.4 % *LOW* (11/14/2011 04:05:00) MCV [81.0-99.0 fL] 84.9 fL (11/17/2011 03:15:00) 84.6 fL (11/16/2011 01:15:00) 85.9 fL (11/14/2011 04:05:00) MCH [27.0-31.0 pg] 28.8 pg (11/17/2011 03:15:00) 28.8 pg (11/16/2011 01:15:00) 28.8 pg (11/14/2011 04:05:00) MCHC [32.0-36.0 g/dL] 33.8 g/dL (11/17/2011 03:15:00) 34.0 g/dL (11/16/2011 01:15:00) 33.5 g/dL (11/14/2011 04:05:00) RDW [11.5-14.5 %] 14.1 % (11/17/2011 03:15:00) 13.9 % (11/16/2011 01:15:00) 14.5 % (11/14/2011 04:05:00) Platelet [133-450 K/CMM] 220 K/CMM (11/17/2011 03:15:00) 185 K/CMM (11/16/2011 01:15:00) 171 K/CMM (11/14/2011 04:05:00) MPV [7.4-10.4 fL] 7.4 fL (11/17/2011 03:15:00) 7.0 fL *LOW* (11/16/2011 01:15:00) 7.2 fL *LOW* (11/14/2011 04:05:00) Segs [45.0-75.0 %] 63.9 % (11/17/2011 03:15:00) 69.0 % (11/16/2011 01:15:00) 67.1 % (11/14/2011 04:05:00) Lymphocytes [20.0-40.0 %] 26.4 % (11/17/2011 03:15:00) 23.6 % (11/16/2011 01:15:00) 22.7 % (11/14/2011 04:05:00) Monocytes [2.0-12.0 %] 7.2 % (11/17/2011 03:15:00) 5.0 % (11/16/2011 01:15:00) 8.4 % (11/14/2011 04:05:00) Eosinophils [0.0-4.0 %] 2.3 % (11/17/2011 03:15:00) 2.0 % (11/16/2011 01:15:00) 1.6 % (11/14/2011 04:05:00) Basophils [0.0-1.0 %] 0.2 % (11/17/2011 03:15:00) 0.4 % (11/16/2011 01:15:00) 0.2 % (11/14/2011 04:05:00) Segs-Bands # [1.5-8.1 K/CMM] 4.9 K/CMM (11/17/2011 03:15:00) 6.8 K/CMM (11/16/2011 01:15:00) 7.1 K/CMM (11/14/2011 04:05:00) Lymphocytes # [1.0-5.5 K/CMM] 2.0 K/CMM (11/17/2011 03:15:00) 2.3 K/CMM (11/16/2011 01:15:00) 2.4 K/CMM (11/14/2011 04:05:00) Monocytes # [0.0-0.8 K/CMM] 0.5 K/CMM (11/17/2011 03:15:00) 0.5 K/CMM (11/16/2011 01:15:00) 0.9 K/CMM *HI* (11/14/2011 04:05:00) Eosinophils # [0.0-0.5 K/CMM] 0.2 K/CMM (11/17/2011 03:15:00) 0.2 K/CMM (11/16/2011 01:15:00) 0.2 K/CMM (11/14/2011 04:05:00) Basophils # [0.0-0.2 K/CMM] 0.0 K/CMM (11/17/2011 03:15:00) 0.0 K/CMM (11/16/2011 01:15:00) 0.0 K/CMM (11/14/2011 04:05:00) RBC Morph Normal (11/12/2011 22:00:00) Plt Morph Normal (11/12/2011 22:00:00) PT [12.0-14.7 seconds] 12.1 seconds (11/12/2011 22:00:00) INR [0.85-1.17] 0.89 10 (11/12/2011 22:00:00) PTT [22.9-35.8 seconds] 20.1 seconds 11 *LOW* (11/12/2011 22:00:00) 10Interpretive Data: RECOMMENDED RANGES FOR PROTIME INR: 2.0-3.0 for most medical and surgical thromboembolic states. 2.5-3.5 for artificial heart valves and recurrent embolism.INR SHOULD BE USED ONLY FOR PATIENTS ON STABLE ANTICOAGULANT THERAPY. 11Interpretive Data: Heparin Therapeutic Range: 57 - 92 Seconds
--- OUTSIDE RECORDS SUMMARY | 2019-05-01 09:59 | XMS REPORT | Continuity of Care Document ---
Author Author [facility] Address Unknown Phone Unavailable Care Team Providers Care Branch Sales Manager Name Role Phone Feesheh Unavailable Unavailable Problems Problem Status Onset Date Classification Date Reported Comments Source Pain in throat 10/12/2018 [facility] Z[facility].31 - ENCNTR SCREEN MAMMOGRAM FOR MA Active 07/08/2017 [facility] [place] Discharge Diagnosis: Acute head injury 09/12/2014 09/14/2014 [facility] Discharge Diagnosis: Accidental fall 09/12/2014 09/14/2014 [facility] FALL Active 09/11/2014 [facility] [place] OPEN RT ANKLE Active 11/12/2011 [facility] Diabetes mellitus (disorder) Active Problem 04/26/2019 [facility] [place],[facility] [place], [facility] Hypertriglyceridemia (disorder) Active Problem 04/26/2019 EDGAR [place],[facility] [place], [facility] [place] Hypothyroidism (disorder) Active Problem 04/26/2019 [facility] [place],[facility] [place], [facility] Pain (finding) Active Problem 04/26/2019 EDGAR [place],[facility] [place], [facility] Encounter for screening mammogram for malignant neoplasm of breast 07/29/2017 [facility] [place] Pain Active Problem 11/20/2011 [facility] FX ANKLE NOS-OPEN Active [facility] LT SHOULDER TEAR/RT ANKLE Active [facility] [place] LT SHOULDER TEAR R/ANKLE Active [facility] [place] Medications Medication Details Route Status Patient Instructions Ordering Provider Order Date Source Acetaminophen 650 mg, 2 tab, Route: PO, Drug form: TAB, ONCE, Dosing Weight 100, kg, Priority: STAT, Start date: 09/12/14 2:13:00, Stop date: 09/12/14 2:13:00Notes: Do not exceed 4 gm/day. (Same as: Tylenol) Inactive 09/12/2014 [facility] Azithromycin 500 MG Oral Tablet 500 mg=1 tab, PO, Daily, # 10 tab, 0 Refill(s) Active 09/12/2014 [facility] Azithromycin 500 mg, 2 tab, Route: PO, Drug form: TAB, ONCE, Dosing Weight 100, kg, Start date: 09/12/14 2:12:00, Stop date: 09/12/14 2:12:00Notes: Take 1 hour before or 2 hours after meals. (Same As: Zithromax) Inactive 09/12/2014 [facility] lactulose 10 g/15 mL oral syrup 10 gm, 15 mL, PO, QID, PRN, 840 mL, Constipation, Substitution Allowed, Maintenance, SYRP PO Active [place] 11/18/2011 [facility] Lovenox 40 mg/0.4 mL subcutaneous solution 40 mg, 0.4 mL, SUB-Q, Daily, 8 mL, Substitution Allowed, SOLN SUB-Q Active [place] 11/18/2011 [facility] Senokot S oral tablet 2 tab, PO, BID, 56 tab, Substitution Allowed, Maintenance, TAB PO Active [place] 11/18/2011 [facility] bisacodyl 10 mg rectal suppository 10 mg, 1 supp, MI, Daily, PRN, 14 supp, Constipation, Substitution Allowed, SUPP MI Active [place] 11/18/2011 [facility] acetaminophen-hydrocodone 325 mg-5 mg oral tablet 1 tab, PO, Q4H, PRN, 84 tab, Pain Score 1-3, Substitution Allowed, Maintenance, TAB PO Active [place] 11/18/2011 [facility] insulin aspart 10 unit, 0.1 mL, Route: SUB-Q, Drug form: SOLN, TID-Before Meals, PRN Blood Glucose Results, Start date: 11/17/11 20:24:00, Duration: 30 day, Stop date: 12/17/11 20:23:00 SUB-Q No Longer Active [place] 11/18/2011 [facility] lactulose 10 gm, 15 ml, Route: PO, Drug Form: SYRP, QID, PRN Constipation, Start date: 11/17/11 18:08:00, Duration: 30 day, Stop date: 12/17/11 18:07:00 PO No Longer Active [place] 11/17/2011 [facility] Senokot S oral tablet 2 tab, Route: PO, Drug Form: TAB, BID, NOW, Start date: 11/17/11 18:06:00, Duration: 30 day, Stop date: 12/17/11 17:00:00 PO No Longer Active [place] 11/17/2011 [facility] bisacodyl 10 mg, 1 supp, Route: MI, Drug form: SUPP, Daily, PRN Constipation, Priority: NOW, Start date: 11/17/11 14:13:00, Duration: 30 day, Stop date: 12/17/11 14:12:00 MI No Longer Active [place] 11/17/2011 [facility] lactulose 10 gm, 15 ml, Route: PO, Drug Form: SYRP, QID, PRN Constipation, Start date: 11/17/11 13:55:00, Duration: 30 day, Stop date: 12/17/11 13:54:00 PO No Longer Active [place] 11/17/2011 [facility] Milk of Magnesia 10 mL, Route: PO, Drug Form: SUSP, BID, PRN as needed for constipation, NOW, Start date: 11/16/11 11:31:00, Duration: 30 day, Stop date: 12/16/11 11:30:00 PO No Longer Active [place] 11/16/2011 [facility] insulin regular human recombinant 100 units/mL injectable solution 3 unit, 0.03 mL, Route: SUB-Q, Drug form: SOLN, PRN, PRN Abnormal Lab Result, Start date: 11/15/11 10:22:00, Duration: 30 day, Stop date: 12/15/11 10:21:00 SUB-Q No Longer Active [place] 11/15/2011 [facility] Dextrose 50% Syringe 6.25 gm, 12.5 mL, Route: IVP, Drug Form: INJ, PRN, PRN Abnormal Lab Result, Start date: 11/15/11 10:22:00, Duration: 30 day, Stop date: 12/15/11 10:21:00 IVP No Longer Active [place] 11/15/2011 [facility] insulin aspart 15 unit, 0.15 mL, Route: SUB-Q, Drug form: SOLN, TID, Priority: NOW, Start date: 11/14/11 16:06:00, Stop date: 12/14/11 13:00:00 SUB-Q No Longer Active [place] 11/14/2011 [facility] Lovenox 40 mg, 0.4 mL, Route: SUB-Q, Drug form: INJ, Daily, Start date: 11/14/11 9:00:00, Duration: 30 day, Stop date: 12/13/11 9:00:00 SUB-Q No Longer Active [place] 11/14/2011 [facility] Lantus Route: SUB-Q, Drug form: INJ, Bedtime, Start date: 11/13/11 21:00:00, Duration: 30 day, Stop date: 12/12/11 21:00:00 SUB-Q No Longer Active [place] 11/14/2011 [facility] ketorolac 30 mg/mL injectable solution 30 mg, Route: IVP, ONCE, Start date: 11/13/11 16:02:00, Stop date: 11/13/11 16:02:00 IVP No Longer Active [place] 11/13/2011 [facility] cefazolin 1 gm, Route: IVPB, Drug form: PDR/INJ, ABXQ8H, Start date: 11/13/11 15:00:00, Duration: 72 hr, Stop date: 11/16/11 4:00:00 IVPB No Longer Active [place] 11/13/2011 [facility] Lactated Ringers IV 1,000 mL 1,000 mL, Rate: 125 ml/hr, Infuse over: 8 hr, Route: IV, Dosing Weight 101.3 kg, Total Volume: 1,000, Start date: 11/13/11 14:56:00, Duration: 30 day, Stop date: 12/13/11 14:55:00 IV No Longer Active [place] 11/13/2011 [facility] Laurel 5/325 oral tablet 1 tab, Route: PO, Drug Form: TAB, Q6H, Start date: 11/13/11 12:00:00, Duration: 30 day, Stop date: 12/13/11 6:00:00 PO No Longer Active [place] 11/13/2011 [facility] metoprolol 12.5 mg, 1 ea, Route: PO, Drug form: TAB, BID, Start date: 11/13/11 9:00:00, Duration: 30 day, Stop date: 12/12/11 17:00:00 PO No Longer Active [place] 11/13/2011 [facility] [place] Thyroid 120 mg, 2 tab, Route: PO, Drug form: TAB, Daily, Start date: 11/13/11 9:00:00, Duration: 30 day, Stop date: 12/12/11 9:00:00 PO No Longer Active [place] 11/13/2011 [facility] aspirin 81 mg tablet, enteric coated 81 mg, 1 tab, Route: PO, Drug form: ECTAB, Daily, Start date: 11/13/11 9:00:00, Duration: 30 day, Stop date: 12/12/11 9:00:00 PO No Longer Active [place] 11/13/2011 [facility] Dilaudid 1 mg, 0.5 mL, Route: IV, Drug form: INJ, Q3H, PRN Pain, Start date: 11/13/11 6:46:00, Duration: 30 day, Stop date: 12/13/11 6:45:00 IV No Longer Active [place] 11/13/2011 [facility] Ancef 1 gm, Route: IVPB, Drug form: PDR/INJ, ABXQ8H, Start date: 11/13/11 5:00:00, Stop date: 12/12/11 21:00:00 IVPB No Longer Active [place] 11/13/2011 [facility] [place] Thyroid 120 mg oral tablet 120 mg, 1 tab, Daily, Substitution Allowed Active [place] 11/13/2011 [facility] aspirin 81 mg tablet, enteric coated 81 mg, 1 tab, PO, Daily, Substitution Allowed PO Active [place] 11/13/2011 [facility] Lantus 45units, SUB-Q, Bedtime, Substitution Allowed SUB-Q Active [place] 11/13/2011 [facility] NovoLog 15 unit, SUB-Q, TID-Before Meals, Substitution Allowed SUB-Q Active 11/13/2011 [facility] insulin aspart 1 unit, 0.01 mL, Route: SUB-Q, Drug form: SOLN, TID-Before Meals, PRN Blood Glucose Results, Start date: 11/13/11 4:12:00, Duration: 30 day, Stop date: 12/13/11 4:11:00 SUB- Q No Longer Active [place] 11/13/2011 [facility] NS 1,000 mL 1,000 mL, Rate: 100 ml/hr, Infuse over: 10 hr, Route: IV, Dosing Weight 101.4 kg, Total Volume: 1,000, Start date: 11/13/11 4:12:00, Duration: 30 day, Stop date: 12/13/11 4:11:00 IV No Longer Active [place] 11/13/2011 [facility] acetaminophen-hydrocodone 325 mg-5 mg oral tablet 2 tab, Route: PO, Drug Form: TAB, Q4H, PRN Pain Score 4-6, Start date: 11/13/11 4:09:00, Duration: 30 day, Stop date: 12/13/11 4:08:00 PO No Longer Active [facility] 11/13/2011 [facility] acetaminophen 650 mg, 2 tab, Route: PO, Drug form: TAB, Q4H, PRN Pain/Fever, Start date: 11/13/11 4:09:00, Duration: 30 day, Stop date: 12/13/11 4:08:00 PO No Longer Active [place] 11/13/2011 [facility] temazepam 15 mg, 1 cap, Route: PO, Drug form: CAP, Bedtime, PRN Insomnia, Start date: 11/13/11 4:09:00, Duration: 30 day, Stop date: 12/13/11 4:08:00 PO No Longer Active [place] 11/13/2011 [facility] morphine Sulfate 2 mg, 0.5 mL, Route: IVP, Drug form: INJ, Q3H, PRN Pain Score 4-6, Start date: 11/13/11 4:09:00, Duration: 30 day, Stop date: 12/13/11 4:08:00 IVP No Longer Active 11/13/2011 [facility] docusate 100 mg, 1 cap, Route: PO, Drug form: CAP, BID, PRN Constipation, Start date: 11/13/11 4:09:00, Duration: 30 day, Stop date: 12/13/11 4:08:00 PO No Longer Active [facility] 11/13/2011 [facility] ondansetron 4 mg, 2 mL, Route: IVP, Drug form: INJ, Q6H, PRN Nausea & Vomiting, Start date: 11/13/11 4:09:00, Duration: 30 day, Stop date: 12/13/11 4:08:00 IVP No Longer Active [facility] 11/13/2011 [facility] hydromorphone 1 mg, 0.5 mL, Route: IVP, Drug form: INJ, ONCE, Priority: STAT, Start date: 11/13/11 4:00:00, Stop date: 11/13/11 4:00:00 IVP No Longer Active [facility] 11/13/2011 [facility] Sodium Chloride 0.9% IV 1,000 mL 1,000 mL, Rate: 100 ml/hr, Infuse over: 10 hr, Route: IV, Dosing Weight 101.4 kg, Total Volume: 1,000, Start date: 11/13/11 3:13:00, Duration: 30 day, Stop date: 12/13/11 3:12:00 IV No Longer Active [facility] 11/13/2011 [facility] hydromorphone 1 mg, 0.5 mL, Route: IVP, Drug form: INJ, ONCE, Priority: STAT, Start date: 11/13/11 2:11:00, Stop date: 11/13/11 2:11:00 IVP No Longer Active [facility] 11/13/2011 [facility] Ativan 0.5 mg, 0.25 mL, Route: IVP, Drug form: INJ, ONCE, PRN Anxiety, Start date: 11/13/11 2:11:00 IVP No Longer Active [facility] 11/13/2011 [facility] promethazine 12.5 mg, Route: IVPB, ONCE, Priority: STAT, Start date: 11/12/11 22:25:00, Stop date: 11/12/11 22:25:00 IVPB No Longer Active [facility] 11/13/2011 [facility] morphine Sulfate 4 mg, 1 mL, Route: IVP, Drug form: INJ, ONCE, Priority: STAT, Start date: 11/12/11 22:25:00, Stop date: 11/12/11 22:25:00 IVP No Longer Active [facility] 11/13/2011 [facility] Sodium Chloride 0.9% (Bolus) IV 1000 mL 1,000 mL, Rate: 1,000 ml/hr, Infuse over: 1 hr, Route: IV, kg, Total Volume: 1,000, Bolus Dose, Priority: STAT, Start date: 11/12/11 22:25:00, Duration: 1 doses or times, Stop date: 11/12/11 23:24:00 IV No Longer Active [facility] 11/13/2011 [facility] propofol 30 mg, 3 mL, Route: IVP, Drug form: SUSP, ONCE, Start date: 11/12/11 22:22:00, Stop date: 11/12/11 22:22:00 IVP No Longer Active [facility] 11/13/2011 [facility] fentanyl 50 microgram, 1 mL, Route: IVP, Drug form: INJ, ONCE, Priority: STAT, Start date: 11/12/11 22:21:00, Stop date: 11/12/11 22:21:00 IVP No Longer Active [facility] 11/13/2011 [facility] propofol 70 mg, 7 mL, Route: IVP, Drug form: SUSP, ONCE, Start date: 11/12/11 22:21:00, Stop date: 11/12/11 22:21:00 IVP No Longer Active [facility] 11/13/2011 [facility] tetanus/diphtheria/pertussis, acel (Tdap) 5 units-2.5 units-18.5 mcg/0.5 mL intramuscular suspensio 0.5 ml, Route: IM, ONCE, Start date: 11/12/11 21:59:00, Stop date: 11/12/11 21:59:00 IM No Longer Active [facility] 11/13/2011 [facility] droperidol 1.25 mg, 0.5 mL, Route: IVP, Drug form: INJ, ONCE, PRN Nausea & Vomiting, Start date: 11/12/11 21:47:00 IVP No Longer Active [facility] 11/13/2011 [facility] Zofran 8 mg, Route: IV, ONCE, Start date: 11/12/11 21:47:00, Stop date: 11/12/11 21:47:00 IV No Longer Active [facility] 11/13/2011 [facility] propofol 100 mg, 10 mL, Route: IVP, Drug form: SUSP, ONCE, Priority: STAT, Start date: 11/12/11 21:43:00, Stop date: 11/12/11 21:43:00 IVP No Longer Active [facility] 11/13/2011 [facility] fentanyl 50 microgram, 1 mL, Route: IVP, Drug form: INJ, ONCE, Priority: STAT, Start date: 11/12/11 21:43:00, Stop date: 11/12/11 21:43:00 IVP No Longer Active [facility] 11/13/2011 [facility] gentamicin 668.185 mg, 16.7 mL, Route: IVPB, ONCE, Priority: STAT, Start date: 11/12/11 21:42:00, Stop date: 11/12/11 21:42:00 IVPB No Longer Active [facility] 11/13/2011 [facility] tetanus-diphtheria toxoids adult intramuscular suspension 0.5 ml, Route: IM, Drug Form: INJ, ONCE, STAT, Start date: 11/12/11 21:41:00, Stop date: 11/12/11 21:41:00 IM No Longer Active [facility] 11/13/2011 [facility] cefazolin 1 gm, Route: IVPB, Drug form: PDR/INJ, ONCE, Priority: STAT, Start date: 11/12/11 21:41:00, Stop date: 11/12/11 21:41:00 IVPB No Longer Active [facility] 11/13/2011 [facility] Allergies, Adverse Reactions, Alerts Substance Category Reaction Severity Reaction type Status Date Reported Comments Source No Known Medication Allergies [facility] Immun[facility] Immunization Date Given Site Status Last Updated Comments Source diphtheria/pertussis, acel/tetanus adult 11/13/2011 Right deltoid completed [facility] Bryanna EDGAR [place] diphtheria/pertussis, acel/tetanus adult 11/13/2011 eleonora Castro [facility] Results Order Name Results Value Reference Range Date Interpretation Comments Source URINE AND STOOL UA Mucus Few /LPF None Seen /LPF 09/12/2014 [facility] URINE AND STOOL UA Bacteria Many /HPF None Seen /HPF 09/12/2014 [facility] URINE AND STOOL UA Urobilinogen <=1.0 mg/dL 0.1 - 1.0 09/12/2014 [facility] URINE AND STOOL UA Color Ltyellow 09/12/2014 [place] URINE AND STOOL UA WBC 5 0 - 5 09/12/2014 [place] URINE AND STOOL UA Sq Epi Occasional /LPF Few /LPF 09/12/2014 [facility] URINE AND STOOL UA RBC 3 0 - 2 09/12/2014 [place] URINE AND STOOL UA Glucose 500 mg/dL Negative mg/dL 09/12/2014 [place] URINE AND STOOL UA Spec Grav 1.014 <=1.030 09/12/2014 [place] URINE AND STOOL UA Turbidity Clear (09/12/14 12:57 AM) Clear 09/12/2014 [place] URINE AND STOOL UA Protein 30 mg/dL Negative mg/dL 09/12/2014 [place] URINE AND STOOL UA pH 5.0 5.0 - 8.0 09/12/2014 [place] URINE AND STOOL UA Leuk Est Negative (09/12/14 12:57 AM) Negative 09/12/2014 [facility] URINE AND STOOL UA Bili Negative *NA* (09/12/14 12:57 AM) Negative 09/12/2014 [facility] URINE AND STOOL UA Ketones Trace mg/dL Negative mg/dL 09/12/2014 [facility] URINE AND STOOL UA Nitrite Negative (09/12/14 12:57 AM) Negative 09/12/2014 [facility] URINE AND STOOL UA Blood Small *ABN* (09/12/14 12:57 AM) Negative 09/12/2014 [facility] CHEM PANEL ALT 50 0 - 65 09/12/2014 [facility] CHEM PANEL Albumin Lvl 3.5 3.5 - 5.0 09/12/2014 [facility] CHEM PANEL Bili Total 0.3 0.2 - 1.3 09/12/2014 [facility] CHEM PANEL Alk Phos 128 39 - 136 09/12/2014 [facility] CHEM PANEL AST 56 0 - 37 09/12/2014 [facility] CHEM PANEL Total Protein 8.0 6.4 - 8.4 09/12/2014 [facility] CHEM PANEL CO2 24 24 - 32 09/12/2014 [facility] CHEM PANEL BUN 13 7 - 22 09/12/2014 [facility] CHEM PANEL Glucose Lvl 220 70 - 99 09/12/2014 <sup>2</sup>Interpretive Data: Adult reference range values reflect the clinical guidelines
of the [place] [employer]. [facility] CHEM PANEL eGFR 83 09/12/2014 <sup>1</sup>Result Comment: The eGFR is calculated using the CKD-EPI formula. In most young, healthy individuals the eGFR will be >90 mL/min/1.73m2. The eGFR declines with age. An eGFR of 60-89 may be normal in some populations, particularly the elderly, for whom the CKD-EPI formula has not been extensively validated. Use of the eGFR is not recommended in the following populations:& lt;br/>
Individuals with unstable creatinine concentrations, including patients and those with serious co-morbid conditions.

Patients with extremes in muscle mass or diet.

The data above are obtained from the National Kidney Disease Education Program (NKDEP) which additionally recommends that when the eGFR is used in patients with extremes of body mass index for purposes of drug dosing, the eGFR should be multiplied by the estimated BMI. [facility] CHEM PANEL Creatinine Lvl 0.7 0.5 - 1.4 09/12/2014 [facility] CHEM PANEL Chloride Lvl 99 95 - 109 09/12/2014 [facility] CHEM PANEL Calcium Lvl 8.6 8.5 - 10.5 09/12/2014 [facility] CHEM PANEL Potassium Lvl 3.9 3.5 - 5.1 09/12/2014 [facility] CHEM PANEL Sodium Lvl 132 135 - 145 09/12/2014 [facility] CHEM PANEL A/G Ratio 0.8 0.7 - 1.6 09/12/2014 [facility] CHEM PANEL Globulin 4.5 2.0 - 4.0 09/12/2014 [facility] CHEM PANEL AGAP 12.9 10.0 - 20.0 09/12/2014 [facility] CHEM PANEL B/C Ratio 19 6 - 25 09/12/2014 [facility] HEMATOLOGY Basophils # 0.1 0.0 - 0.2 09/12/2014 [facility] HEMATOLOGY Monocytes # 0.8 0.0 - 0.8 09/12/2014 [facility] HEMATOLOGY Lymphocytes # 0.8 1.0 - 5.5 09/12/2014 [facility] HEMATOLOGY Segs 83.4 45.0 - 75.0 09/12/2014 [facility] HEMATOLOGY Segs-Bands # 8.4 1.5 - 8.1 09/12/2014 [facility] HEMATOLOGY Eosinophils 0.1 0.0 - 4.0 09/12/2014 [facility] HEMATOLOGY Basophils 0.7 0.0 - 1.0 09/12/2014 [facility] HEMATOLOGY Lymphocytes 8.3 20.0 - 40.0 09/12/2014 [facility] HEMATOLOGY Monocytes 7.5 2.0 - 12.0 09/12/2014 [facility] HEMATOLOGY MCH 27.9 27.0 - 31.0 09/12/2014 [facility] HEMATOLOGY MCHC 33.4 32.0 - 36.0 09/12/2014 [facility] HEMATOLOGY MCV 83.8 80.0 - 98.0 09/12/2014 [facility] HEMATOLOGY Platelet 148 133 - 450 09/12/2014 [facility] HEMATOLOGY RDW 15.5 11.5 - 14.5 09/12/2014 [facility] HEMATOLOGY MPV 7.4 7.4 - 10.4 09/12/2014 [facility] Hct 39.6 36.0 - 48.0 09/12/2014 [facility] HEMATOLOGY Hgb 13.2 12.0 - 16.0 09/12/2014 [facility] RBC 4.73 4.20 - 5.40 09/12/2014 [facility] WBC 10.0 3.7 - 10.4 09/12/2014 [facility] BEDSIDE GLUCOSE TESTING Gluc POC Lifscn 151 70 - 99 11/18/2011 [place] <sup>1</sup>Interpretive Data: Upper Reportable Limit: 200 mg/dL. [facility] BEDSIDE GLUCOSE TESTING Gluc POC Lifscn 193 70 - 99 11/18/2011 [place] <sup>2</sup>Interpretive Data: Upper Reportable Limit: 200 mg/dL. [facility] BEDSIDE GLUCOSE TESTING Gluc POC Lifscn 150 65 - 110 11/18/2011 [place] <sup>3</sup>Interpretive Data: Upper Reportable Limit: 200 mg/dL. [facility] HEMATOLOGY MCHC 33.8 32.0 - 36.0 11/17/2011 Normal [facility] HEMATOLOGY MCH 28.8 27.0 - 31.0 11/17/2011 Normal [facility] HEMATOLOGY WBC 7.6 3.7 - 10.4 11/17/2011 Normal [facility] HEMATOLOGY Hct 29.0 36.0 - 48.0 11/17/2011 LOW [facility] HEMATOLOGY RBC 3.42 4.20 - 5.40 11/17/2011 LOW [facility] HEMATOLOGY Hgb 9.8 12.0 - 16.0 11/17/2011 LOW [facility] HEMATOLOGY MCV 84.9 81.0 - 99.0 11/17/2011 Normal [facility] HEMATOLOGY MPV 7.4 7.4 - 10.4 11/17/2011 Normal [facility] HEMATOLOGY RDW 14.1 11.5 - 14.5 11/17/2011 Normal [facility] HEMATOLOGY Platelet 220 133 - 450 11/17/2011 Normal [facility] HEMATOLOGY Basophils # 0.0 0.0 - 0.2 11/17/2011 Normal [facility] HEMATOLOGY Eosinophils # 0.2 0.0 - 0.5 11/17/2011 Normal [facility] HEMATOLOGY Monocytes # 0.5 0.0 - 0.8 11/17/2011 [facility] HEMATOLOGY Lymphocytes # 2.0 1.0 - 5.5 11/17/2011 [facility] HEMATOLOGY Segs-Bands # 4.9 1.5 - 8.1 11/17/2011 Normal [facility] HEMATOLOGY Eosinophils 2.3 0.0 - 4.0 11/17/2011 [facility] HEMATOLOGY Monocytes 7.2 2.0 - 12.0 11/17/2011 Normal [facility] HEMATOLOGY Basophils 0.2 0.0 - 1.0 11/17/2011 Normal [facility] HEMATOLOGY Lymphocytes 26.4 20.0 - 40.0 11/17/2011 [facility] HEMATOLOGY Segs 63.9 45.0 - 75.0 11/17/2011 Normal [facility] BEDSIDE GLUCOSE TESTING Comment1 Notify RN/MD 11/16/2011 NA [facility] HEMATOLOGY Basophils # 0.0 0.0 - 0.2 11/16/2011 Normal [facility] HEMATOLOGY Eosinophils # 0.2 0.0 - 0.5 11/16/2011 Normal [facility] HEMATOLOGY Monocytes # 0.5 0.0 - 0.8 11/16/2011 [facility] HEMATOLOGY Lymphocytes # 2.3 1.0 - 5.5 11/16/2011 Normal [facility] HEMATOLOGY Lymphocytes 23.6 20.0 - 40.0 11/16/2011 Normal [facility] HEMATOLOGY Segs 69.0 45.0 - 75.0 11/16/2011 Normal [facility] HEMATOLOGY Monocytes 5.0 2.0 - 12.0 11/16/2011 Normal [facility] HEMATOLOGY Eosinophils 2.0 0.0 - 4.0 11/16/2011 Normal [facility] HEMATOLOGY Segs-Bands # 6.8 1.5 - 8.1 11/16/2011 [facility] HEMATOLOGY Basophils 0.4 0.0 - 1.0 11/16/2011 Normal [facility] HEMATOLOGY RBC 3.53 4.20 - 5.40 11/16/2011 [facility] HEMATOLOGY Hct 29.9 36.0 - 48.0 11/16/2011 [facility] HEMATOLOGY Hgb 10.2 12.0 - 16.0 11/16/2011 [facility] HEMATOLOGY MCH 28.8 27.0 - 31.0 11/16/2011 Normal [facility] HEMATOLOGY MCV 84.6 81.0 - 99.0 11/16/2011 Normal [facility] HEMATOLOGY WBC 9.8 3.7 - 10.4 11/16/2011 Normal [facility] HEMATOLOGY Platelet 185 133 - 450 11/16/2011 Normal [facility] HEMATOLOGY RDW 13.9 11.5 - 14.5 11/16/2011 [facility] HEMATOLOGY MCHC 34.0 32.0 - 36.0 11/16/2011 [facility] HEMATOLOGY MPV 7.0 7.4 - 10.4 11/16/2011 [facility] BEDSIDE GLUCOSE TESTING Comment1 Notify RN/ 11/16/2011 [facility] BEDSIDE GLUCOSE TESTING Comment1 Notify RN/ 11/15/2011 NA [facility] CHEMISTRY Magnesium Lvl 2.1 1.8 - 2.4 11/15/2011 [facility] CHEMISTRY Phosphorus 2.7 2.5 - 4.5 11/15/2011 [facility] CHEMISTRY PTH Intact 38.3 11.1 - 79.5 11/15/2011 Normal [facility] CHEMISTRY Vitamin D2 25-OH <4 11/15/2011 NA <sup>7</sup>Result Comment: Test Performed at: [facility] [address] [place] [address] Denise Mayer MD, PhD [facility] CHEMISTRY Vitamin D3 25-OH 12 11/15/2011 NA [facility] CHEMISTRY Vitamin D, 25-OH, Total 12 30 - 100 11/15/2011 LOW <sup>6</sup>Result Comment: 25-OHD3 indicates both endogenous production and supplementation. 25-OHD2 is an indicator of exogenous sources such as diet or supplementation. Therapy is based on measurement of Total 25- OHD, with levels <20 ng/mL indicative of Vitamin D deficiency, while levels between 20 ng/mL and 30 ng/mL suggest insufficiency. Optimal levels are >=30 ng/mL. [facility] CHEMISTRY Osteocalcin, N-MID 6 8 - 32 11/15/2011 LOW <sup>9</sup>Result Comment: Test Performed at: [facility] [address] [place] [address] Denise Mayer MD, PhD [facility] CHEMISTRY Glucose Lvl 161 11/14/2011 NA <sup>4</sup>Interpretive Data: Reference Ranges : 0 - 7 days : 41 - 90 mg/dL 7 days - 150 yrs : 70 - 99 mg/dL (fasting), based on the clinical recommendations of the [place] [employer]. [facility] CHEMISTRY BUN 10 7 - 22 11/14/2011 Normal [facility] CHEMISTRY CO2 22 24 - 32 11/14/2011 LOW [facility] CHEMISTRY Chloride Lvl 104 95 - 109 11/14/2011 Normal [facility] CHEMISTRY Calcium Lvl 7.9 8.5 - 10.5 11/14/2011 LOW [facility] CHEMISTRY Creatinine Lvl 0.7 0.5 - 1.4 11/14/2011 Normal [facility] CHEMISTRY Sodium Lvl 137 135 - 145 11/14/2011 Normal [facility] CHEMISTRY Potassium Lvl 4.8 3.5 - 5.1 11/14/2011 Normal [facility] CHEMISTRY AGAP 15.8 10.0 - 20.0 11/14/2011 Normal [facility] HEMATOLOGY Basophils # 0.0 0.0 - 0.2 11/14/2011 Normal [facility] HEMATOLOGY Lymphocytes 22.7 20.0 - 40.0 11/14/2011 Normal [facility] HEMATOLOGY Eosinophils # 0.2 0.0 - 0.5 11/14/2011 Normal [facility] HEMATOLOGY Lymphocytes # 2.4 1.0 - 5.5 11/14/2011 [facility] HEMATOLOGY Monocytes # 0.9 0.0 - 0.8 11/14/2011 [facility] HEMATOLOGY Segs-Bands # 7.1 1.5 - 8.1 11/14/2011 [facility] HEMATOLOGY Basophils 0.2 0.0 - 1.0 11/14/2011 [facility] HEMATOLOGY Segs 67.1 45.0 - 75.0 11/14/2011 [facility] HEMATOLOGY Monocytes 8.4 2.0 - 12.0 11/14/2011 [facility] HEMATOLOGY Eosinophils 1.6 0.0 - 4.0 11/14/2011 [facility] HEMATOLOGY MCH 28.8 27.0 - 31.0 11/14/2011 [facility] HEMATOLOGY MCHC 33.5 32.0 - 36.0 11/14/2011 [facility] HEMATOLOGY RDW 14.5 11.5 - 14.5 11/14/2011 [facility] HEMATOLOGY Platelet 171 133 - 450 11/14/2011 [facility] HEMATOLOGY MPV 7.2 7.4 - 10.4 11/14/2011 [facility] HEMATOLOGY MCV 85.9 81.0 - 99.0 11/14/2011 [facility] HEMATOLOGY Hct 33.4 36.0 - 48.0 11/14/2011 [facility] HEMATOLOGY Hgb 11.2 12.0 - 16.0 11/14/2011 [facility] HEMATOLOGY RBC 3.88 4.20 - 5.40 11/14/2011 [facility] HEMATOLOGY WBC 10.6 3.7 - 10.4 11/14/2011 [facility] CHEMISTRY TSH 1.170 0.360 - 3.740 11/13/2011 [facility] CHEMISTRY Hgb A1C 8.5 11/13/2011 NA <sup>8</sup>Interpretive Data: HbA1C% eAG(mg/dL) Interpretation 6.0 126 Very good control 6.5 140 Very good control 7.0 154 Good Control 7.5 169 Good Control 8.0 183 Marginal Control, take action to lower 8.5 197 Marginal Control, take action to lower 9.0 212 Poor Control, take action to lower 9.5 226 Poor Control, take action to lower 10.0 240 Poor Control, take action to lower [facility] CHEMISTRY Magnesium Lvl 1.8 1.8 - 2.4 11/13/2011 Normal [facility] CHEMISTRY Phosphorus 2.9 2.5 - 4.5 11/13/2011 Normal [facility] CHEMISTRY A/G Ratio 0.9 0.7 - 1.6 11/13/2011 Normal [facility] CHEMISTRY Globulin 4.0 2.0 - 4.0 11/13/2011 Normal [facility] CHEMISTRY B/C Ratio 21 6 - 25 11/13/2011 Normal [facility] CHEMISTRY AGAP 14.6 10.0 - 20.0 11/13/2011 Normal [facility] CHEMISTRY Albumin Lvl 3.4 3.5 - 5.0 11/13/2011 LOW [facility] CHEMISTRY ALT 37 0 - 65 11/13/2011 Normal [facility] CHEMISTRY AST 21 0 - 37 11/13/2011 Normal [facility] CHEMISTRY Alk Phos 175 39 - 136 11/13/2011 HI [facility] CHEMISTRY Bili Total 0.2 0.2 - 1.3 11/13/2011 Normal [facility] CHEMISTRY Total Protein 7.4 6.4 - 8.4 11/13/2011 Normal [facility] CHEMISTRY CO2 26 24 - 32 11/13/2011 Normal [facility] CHEMISTRY Calcium Lvl 9.2 8.5 - 10.5 11/13/2011 Normal [facility] CHEMISTRY Potassium Lvl 3.6 3.5 - 5.1 11/13/2011 Normal [facility] CHEMISTRY Chloride Lvl 102 95 - 109 11/13/2011 Normal [facility] CHEMISTRY Glucose Lvl 193 11/13/2011 NA <sup>5</sup>Interpretive Data: Reference Ranges : 0 - 7 days : 41 - 90 mg/dL 7 days - 150 yrs : 70 - 99 mg/dL (fasting), based on the clinical recommendations of the [place] [employer]. [facility] CHEMISTRY Creatinine Lvl 0.9 0.5 - 1.4 11/13/2011 Normal [facility] CHEMISTRY BUN 19 7 - 22 11/13/2011 Normal [facility] CHEMISTRY Sodium Lvl 139 135 - 145 11/13/2011 Normal [facility] HEMATOLOGY INR 0.89 0.85 - 1.17 11/13/2011 Normal <sup>10</sup>Interpretive Data: RECOMMENDED RANGES FOR PROTIME INR: 2.0-3.0 for most medical and surgical thromboembolic states. 2.5-3.5 for artificial heart valves and recurrent embolism. INR SHOULD BE USED ONLY FOR PATIENTS ON STABLE ANTICOAGULANT THERAPY. [facility] HEMATOLOGY PT 12.1 12.0 - 14.7 11/13/2011 Normal [facility] HEMATOLOGY PTT 20.1 22.9 - 35.8 11/13/2011 LOW <sup>11</sup>Interpretive Data: Heparin Therapeutic Range: 57 - 92 Seconds [facility] HEMATOLOGY Plt Morph Normal (11/12/2011 22:00:00) 11/13/2011 Normal [facility] HEMATOLOGY RBC Morph Normal (11/12/2011 22:00:00) 11/13/2011 Normal [facility] BLOOD BANK RESULTS ABO/Rh O NEG 11/13/2011 Unknown [facility] BLOOD BANK RESULTS Antibody Scrn Negative (11/12/2011 21:42:00) 11/13/2011 Normal [facility] Pathology Reports No Data Provided for This Section Diagnostic Reports Report Value Date Source Neck soft tissue w/wo contrast CT EXAM: Neck soft tissue w/wo contrast CT DATE: 10/06/2018 9:34 [employer] INDICATION: - R07.0 Pain in throat COMPARISON: None TECHNIQUE: Routine axial images of the neck were obtained following intravenous administration of contrast material. DISCUSSION: No neck masses or cervical lymphadenopathy by imaging criteria. The airway is patent with no pharyngeal mucosal space enhancing mass. The larynx is unremarkable. Vascular structures of the neck are patent. Lung apices are clear. Salivary glands are unremarkable. No acute bony lesions. Degenerative changes in the cervical spine. IMPRESSION: Unremarkable CT neck 10/06/2018 [facility] Breast Limited Uni US LIMITED ULTRASOUND OF RIGHT BREAST: 08/18/2017 CLINICAL: Right Breast Mass/Right Breast Mass On Screening Mammogram. COMPARISON:Comparison is made to exams dated: 05/11/2012 ultrasound, 07/26/2017 mammogram, 05/11/2012 mammogram, 04/27/2012 mammogram - [facility], 12/01/2011 mammogram, and 01/04/2009 mammogram - [facility]. TECHNIQUE: Color flow and real-time ultrasound of the right breast were performed on the areas of interest. FINDINGS: There are benign calcifications right breast. There is a benign 1.1 cm cyst in the right breast at 6 o'clock middle depth 3 cm from the nipple. This correlates with mammography findings. No abnormalities were seen sonographically in the right breast. Multiple bilateral oval masses are fluctuating in size, a pattern consistent with benign etiology, such as cysts. IMPRESSION: BENIGN RECOMMENDATION:There is no sonographic evidence of malignancy. The 1.1 cm cyst in the right breast is benign. A 1 year screening mammogram is recommended.(08/19/2018) This exam was interpreted at [id number] for GRAEME Gould. Professional services are provided by the [facility] Diagnostic [facility]. Kiran Burks M.D. cm/penrad:08/18/2017 11:05:30 [employer] Member(s): Mariah Jolley [facility] letter sent: BI-RADS 1/2 Ultrasound BI-RADS: 2 Benign 08/18/2017 GRAEME Gould Breast Mammo Scrn CARLOS incl CAD MA BILATERAL DIGITAL SCREENING MAMMOGRAM WITH CAD: 07/26/2017 CLINICAL: Routine/Screening. Current study was evaluated with a Computer Aided Detection (CAD) system. COMPARISON:Comparison is made to exams dated: 05/11/2012 mammogram, 04/27/2012 mammogram - [facility], 12/01/2011 mammogram, 01/04/2009 mammogram - [facility], 01/04/2009 mammogram, and 02/20/2005 mammogram - [facility]. TECHNIQUE: Mammographic views were obtained using digital acquisition. Current study was also evaluated with a Computer Aided Detection (CAD) system. The tissue of both breasts is almost entirely fat. FINDINGS: Multiple bilateral oval masses are fluctuating in size, a pattern consistent with benign etiology, such as cysts. There are benign calcifications in both breasts. There also are post operative findings in the left breast. There is a 1.2 cm oval equal density mass with an indistinct margin in the right breast at 6 o'clock middle depth 7 cm from the nipple. No other significant masses, calcifications, or other findings are seen in either breast. IMPRESSION: INCOMPLETE: NEEDS ADDITIONAL IMAGING EVALUATION RECOMMENDATION:The 1.2 cm oval equal density mass in the right breast is indeterminate. Ultrasound with possible diagnostic mammography are recommended. This exam was interpreted at [id number] for FERNANDO Munoz 15. Kiran Burks M.D., cm/penrad:07/27/2017 11:09:01 Train Crew Member(s): RT Aleena(R)(M), [facility] letter sent: BI-RADS 0 Mammogram BI-RADS: 0 Indeterminate 07/26/2017 EDGAR Gould Brain wo contrast CT CT BRAIN WITHOUT CONTRAST INDICATION: Head trauma COMPARISON: CT brain 11/12/2011 FINDINGS: There is a left frontal scalp hematoma. The calvarium is intact. There are generalized involutional changes of the brain and microangiopathic changes of the white matter. Dystrophic calcifications of the deep right frontal white matter are again noted. There is a prominent perivascular space in the region of the right basal ganglia. There is no evidence of acute vascular insults, space occupying lesions, hemorrhage, hydrocephalus, midline shift, or extra-axial collections. IMPRESSION: Chronic age related changes of the brain. No acute intracranial abnormalities are visualized. SL: 16 09/12/2014 [facility] Chest 1view CHEST RADIOGRAPH SINGLE VIEW INDICATION: Chest pain COMPARISON: Chest radiograph 11/12/2011 IMPRESSION: Evaluation is limited by under inflation of the lungs and patient body habitus. The cardiac silhouette appears prominent, associated with possible mild pulmonary vascular congestion. SL: 16 09/12/2014 [facility] Consultation Notes No Data Provided for This Section Discharge Summaries No Data Provided for This Section History and Physicals No Data Provided for This Section Vital Signs Vital Sign Value Date Comments Source Temperature Oral (F) 98.9 F 09/12/2014 [facility] Heart Rate 102 09/12/2014 [facility] Respitory Rate 20 09/12/2014 [facility] Systolic (mm Hg) 148 09/12/2014 [facility] Diastolic (mm Hg) 76 09/12/2014 [facility] Height 162.56 cm 09/12/2014 [facility] Weight 100 09/12/2014 [facility] Systolic (mm Hg) 152 09/12/2014 [facility] Heart Rate 110 09/12/2014 [facility] Diastolic (mm Hg) 73 09/12/2014 [facility] Temperature Oral (F) 100.1 F 09/12/2014 [facility] Respitory Rate 20 09/12/2014 [facility] BMI Calculated 37.84 09/12/2014 [facility] Respitory Rate 18 11/18/2011 [facility] Temperature Oral (F) 98.1 F 11/18/2011 [facility] Diastolic (mm Hg) 56 11/18/2011 [facility] Systolic (mm Hg) 143 11/18/2011 [facility] Heart Rate 76 11/18/2011 [facility] Temperature Oral (F) 98.2 F 11/18/2011 [facility] Heart Rate 66 11/18/2011 [facility] Respitory Rate 20 11/18/2011 [facility] Systolic (mm Hg) 125 11/18/2011 [facility] Diastolic (mm Hg) 56 11/18/2011 [facility] Respitory Rate 18 11/18/2011 [facility] Systolic (mm Hg) 109 11/18/2011 [facility] Diastolic (mm Hg) 51 11/18/2011 [facility] Temperature Oral (F) 98.0 F 11/18/2011 [facility] Heart Rate 97 11/18/2011 [facility] Weight 101.364 11/13/2011 [facility] Height 162.56 cm 11/13/2011 [facility] Encounters Location Location Details Encounter Type Encounter Number Reason For Visit Attending Provider ADM Date DC Date Status Source [facility] Inpatient [id number] OPEN RT ANKLE GAEL ARMIDA 11/13/2011 11/18/[address] [facility] [id number] Fazal Yousif 09/12/2014 09/12/2014 [facility] [place] OP Therapy Patients [id number] Nadir Chatterjee 11/23/2014 12/23/2014 [facility] [place] [facility] [place] [facility] Patients [id number] Nadir Chatterjee 12/25/2014 01/24/2015 [facility] [place] [facility] [place] Outpt Diag Services [id number] Flex Pena 07/26/2017 07/27/2017 [facility] [place] [facility] [place] Outpt Diag Services [id number] Flex Pena 08/18/2017 08/19/2017 [facility] [place] [facility] Out[facility] - [place] Outpt Diag Services [id number] Shu Seaman 10/06/2018 [facility]07[facility] Procedure Code Date Perfomer Comments Source Mastectomy of left breast [id number] EDGAR Gould,[facility] [place], EDGAR Tye [facility] operation [id number] EDGAR Gould,[facility] [place], EDGAR Tye Assessment and Plan No Data Provided for This Section Plan of Care No Data Provided for This Section Social History Social History Date Source Social History TypeResponse Smoking Status Unknown if ever smoked; Exposure to Tobacco Smoke None; Cigarette Smoking Last 365 Days No; Reg Smoking Cessation Counseling No entered on: 09/12/14 09/12/2014 EDGAR Choudhury Social History TypeResponse Smoking Status Unknown if ever smoked; Exposure to Tobacco Smoke None; Cigarette Smoking Last 365 Days No; Reg Smoking Cessation Counseling No 09/12/2014 EDGAR Gould Social History TypeResponse Smoking Status Unknown if ever smoked; Exposure to Tobacco Smoke None; Cigarette Smoking Last 365 Days No; Reg Smoking Cessation Counseling No 09/12/2014 [facility] [place] Social History TypeResponse Smoking Status Unknown if ever smoked, Exposure to Tobacco Smoke None, Cigarette Smoking Last 365 Days No, Reg Smoking Cessation Counseling No 09/12/2014 [facility] Family History No Data Provided for This Section Advance Directives No Data Provided for This Section Functional Status No Data Provided for This Section
--- OUTSIDE RECORDS SUMMARY | 2019-05-01 09:59 | XMS REPORT | Summary of Care ---
Author Author [facility] Outpatient Imaging [facility] Outpatient [facility] Address Unknown Phone Unavailable Encounter VINCENZO Ramos(FIN) [id number] Date(s): 10/06/18 - 10/06/18 [facility] [address] [address] [place] [phone] Discharge Disposition: Home or Self Care Attending Physician: Shu Seaman MD Referring Physician: Shu Seaman MD Vital Signs No data available for [...] Procedures Procedure Date Related Diagnosis Body Site Status Mastectomy of left breast Completed Urethral operation Completed Social History Social History Type Response Smoking Status Unknown if ever smoked; Exposure to Tobacco Smoke None; Cigarette Smoking Last 365 Days No; Reg Smoking Cessation Counseling No entered on: 09/12/14 Assessment and Plan No data available for this section
--- OUTSIDE RECORDS SUMMARY | 2019-05-01 09:59 | XMS REPORT | Summary of Care ---
Author Organization Unknown Address Unknown Phone Unavailable Encounter HQ Cristar_jane(FIN) [id number] Date(s): 12/25/14 - 01/23/15 [facility] Discharge Disposition: Home Physician Attending: aNdir Chatterjee MD Vital Signs No data available [...]
--- OUTSIDE RECORDS SUMMARY | 2019-05-01 09:59 | XMS REPORT | Summary of Care ---
Author Author [facility] Outpatient Imaging [facility] Outpatient Imaging [facility] Address Unknown Phone Unavailable Encounter HQ Richard(FIN) [id number] Date(s): 10/06/18 - 10/06/18 [facility] Outpatient [facility] [address] [address], [address] [place], [place] [address] [phone] Encounter Diagnosis Pain in throat (Final) - 10/11/18 Discharge Disposition: Home or Self Care Attending Physician: Shu Seaman MD Referring Physician: Shu Seaman MD Vital Signs No data available for this section Problem List Condition Effective Dates Status Health Status Informant Diabetes(Confirmed) Active High Active triglycerides(Confir med) Hypothyroid(Confirme Active d) Pain(Confirmed) Active Allergies, Adverse Reactions, Alerts No Known Medication Allergies Medications No data available for this section [...]
--- OUTSIDE RECORDS SUMMARY | 2019-05-01 09:59 | XMS REPORT | Summary of Care ---
Author Author [facility] [place] Organization [facility] [place] Address Unknown Phone Unavailable Encounter HQ Richard(FIN) [id number] Date(s): 07/26/17 - 07/26/17 [facility] [place] [address] [place] [phone] Final: Encounter for screening mammogram for malignant neoplasm of breast Discharge Disposition: Home or Self Care Attending [...]
[2019-05-01] MEDS ORDERED: SODIUM CHLORIDE 0.9% 100 ML IV STA (10:16)
[2019-05-01] MEDS ORDERED: AZITHROMYCIN 500MG/NS 250 ML 250 ML IV STA (10:16)
--- NOTE | 2019-05-01 10:47 | Diagnostic Imaging Report ---
A single frontal view of the chest. HISTORY: Shortness of breath, cough COMPARISON: Images from chest radiographs May 30, 2012 DISCUSSION: Portable technique, limits sensitivity of the exam. Soft tissue attenuation markedly limits sensitivity of the exam. Tubes/Lines: None Lungs and pleura: Prominence of the peribronchial interstitial markings. No evidence of a consolidative pneumonia or pulmonary alveolar edema. No definite pleural effusion or pneumothorax is identified. Heart and mediastinum: The cardiomediastinal silhouette appear(s) unremarkable. Bones and soft tissues: Appear unremarkable, given this limited exam. IMPRESSION: 1. Findings compatible with a nonspecific bronchitis. 2. No consolidative pneumonia. Signed by: Dr. Suresh Lynch D.O., M.M.M. on 05/01/2019 10:44 AM
[2019-05-01] MEDS ORDERED: AZITHROMYCIN 500MG/SOD CHL 0.9% 250ML BAG IV SCH (11:15)
[2019-05-01] MEDS ORDERED: CEFTRIAXONE SOD 1 GRAM/0.9% SOD CHL 50ML BAG IV SCH (11:15)
--- OUTSIDE RECORDS SUMMARY | 2019-05-01 11:17 | XMS REPORT | Continuity of Care Document ---
Author Author [employer] Address Unknown Phone Unavailable Care Team Providers Care Funeral Sales Manager Name Role Phone nxtControl Unavailable Unavailable Problems Problem Status Onset Date Classification Date Reported Comments Source Pain in throat 10/12/2018 [facility] Z12.31 - ENCNTR SCREEN MAMMOGRAM FOR MA Active 07/08/2017 [facility] [place] Discharge Diagnosis: Acute head injury 09/12/2014 09/14/2014 [facility] [place] Discharge Diagnosis: Accidental fall 09/12/2014 09/14/2014 [facility] FALL Active 09/11/2014 [facility] OPEN RT ANKLE Active 11/12/2011 [facility] Diabetes mellitus (disorder) Active Problem 04/26/2019 EDGAR [place],[facility] [place],[facility] [place], [facility] Hypertriglyceridemia (disorder) Active Problem 04/26/2019 EDGAR [place],[facility] [place],[facility] [place], [facility] Hypothyroidism (disorder) Active Problem 04/26/2019 [facility] [place],[facility] [place],[facility] [place], [facility] Pain (finding) Active Problem 04/26/2019 EDGAR [facility] [place], [facility] Encounter for screening mammogram for malignant neoplasm of breast 07/29/2017 [facility] [place] Pain Active Problem 11/20/2011 [facility] FX ANKLE NOS-OPEN Active [facility] LT SHOULDER TEAR/RT ANKLE Active [facility] [place] LT SHOULDER TEAR R/ANKLE Active [facility] [place] Medications Medication Details Route Status Patient Instructions Ordering Provider Order Date Source Acetaminophen 650 mg, 2 tab, Route: PO, Drug form: TAB, ONCE, Dosing Weight 100, kg, Priority: STAT, Start date: 09/12/14 2:13:00, Stop date: 09/12/14 2:13:00Notes: Do not exceed 4 gm/day. (Same as: Tylenol) Inactive 09/12/2014 [facility] Azithromycin 500 MG Oral Tablet 500 mg=1 tab, PO, Daily, # 10 tab, 0 Refill(s) Active 09/12/2014 [facility] Azithromycin 500 mg, 2 tab, Route: PO, Drug form: TAB, ONCE, Dosing Weight 100, kg, Start date: 09/12/14 2:12:00, Stop date: 09/12/14 2:12:00Notes: Take 1 hour before or 2 hours after meals. (Same As: Zithromax) Inactive 09/12/2014 [facility] lactulose 10 g/15 mL oral syrup 10 gm, 15 mL, PO, QID, PRN, 840 mL, Constipation, Substitution Allowed, Maintenance, SYRP PO Active [facility] 11/18/2011 [facility] Lovenox 40 mg/0.4 mL subcutaneous solution 40 mg, 0.4 mL, SUB-Q, Daily, 8 mL, Substitution Allowed, SOLN SUB-Q Active [facility] 11/18/2011 [facility] Senokot S oral tablet 2 tab, PO, BID, 56 tab, Substitution Allowed, Maintenance, TAB PO Active [facility] 11/18/2011 [facility] bisacodyl 10 mg rectal suppository 10 mg, 1 supp, UT, Daily, PRN, 14 supp, Constipation, Substitution Allowed, SUPP UT Active [facility] 11/18/2011 [facility] acetaminophen-hydrocodone 325 mg-5 mg oral tablet 1 tab, PO, Q4H, PRN, 84 tab, Pain Score 1-3, Substitution Allowed, Maintenance, TAB PO Active [facility] 11/18/2011 [facility] insulin aspart 10 unit, 0.1 mL, Route: SUB-Q, Drug form: SOLN, TID-Before Meals, PRN Blood Glucose Results, Start date: 11/17/11 20:24:00, Duration: 30 day, Stop date: 12/17/11 20:23:00 SUB-Q No Longer Active [facility] 11/18/2011 [facility] lactulose 10 gm, 15 ml, Route: PO, Drug Form: SYRP, QID, PRN Constipation, Start date: 11/17/11 18:08:00, Duration: 30 day, Stop date: 12/17/11 18:07:00 PO No Longer Active [facility] 11/17/2011 [facility] Senokot S oral tablet 2 tab, Route: PO, Drug Form: TAB, BID, NOW, Start date: 11/17/11 18:06:00, Duration: 30 day, Stop date: 12/17/11 17:00:00 PO No Longer Active [facility] 11/17/2011 [facility] bisacodyl 10 mg, 1 supp, Route: UT, Drug form: SUPP, Daily, PRN Constipation, Priority: NOW, Start date: 11/17/11 14:13:00, Duration: 30 day, Stop date: 12/17/11 14:12:00 UT No Longer Active [facility] 11/17/2011 [facility] lactulose 10 gm, 15 ml, Route: PO, Drug Form: SYRP, QID, PRN Constipation, Start date: 11/17/11 13:55:00, Duration: 30 day, Stop date: 12/17/11 13:54:00 PO No Longer Active [facility] 11/17/2011 [facility] Milk of Magnesia 10 mL, Route: PO, Drug Form: SUSP, BID, PRN as needed for constipation, NOW, Start date: 11/16/11 11:31:00, Duration: 30 day, Stop date: 12/16/11 11:30:00 PO No Longer Active [facility] 11/16/2011 [facility] insulin regular human recombinant 100 units/mL injectable solution 3 unit, 0.03 mL, Route: SUB-Q, Drug form: SOLN, PRN, PRN Abnormal Lab Result, Start date: 11/15/11 10:22:00, Duration: 30 day, Stop date: 12/15/11 10:21:00 SUB-Q No Longer Active [facility] 11/15/2011 [facility] Dextrose 50% Syringe 6.25 gm, 12.5 mL, Route: IVP, Drug Form: INJ, PRN, PRN Abnormal Lab Result, Start date: 11/15/11 10:22:00, Duration: 30 day, Stop date: 12/15/11 10:21:00 IVP No Longer Active [facility] 11/15/2011 [facility] insulin aspart 15 unit, 0.15 mL, Route: SUB-Q, Drug form: SOLN, TID, Priority: NOW, Start date: 11/14/11 16:06:00, Stop date: 12/14/11 13:00:00 SUB-Q No Longer Active [facility] 11/14/2011 [facility] Lovenox 40 mg, 0.4 mL, Route: SUB-Q, Drug form: INJ, Daily, Start date: 11/14/11 9:00:00, Duration: 30 day, Stop date: 12/13/11 9:00:00 SUB-Q No Longer Active [place] 11/14/2011 [facility] Lantus Route: SUB-Q, Drug form: INJ, Bedtime, Start date: 11/13/11 21:00:00, Duration: 30 day, Stop date: 12/12/11 21:00:00 SUB-Q No Longer Active [facility] 11/14/2011 [facility] ketorolac 30 mg/mL injectable solution 30 mg, Route: IVP, ONCE, Start date: 11/13/11 16:02:00, Stop date: 11/13/11 16:02:00 IVP No Longer Active [place] 11/13/2011 [facility] cefazolin 1 gm, Route: IVPB, Drug form: PDR/INJ, ABXQ8H, Start date: 11/13/11 15:00:00, Duration: 72 hr, Stop date: 11/16/11 4:00:00 IVPB No Longer Active [place] 11/13/2011 [facility] Lactated Ringers IV 1,000 mL 1,000 mL, Rate: 125 ml/hr, Infuse over: 8 hr, Route: IV, Dosing Weight 101.3 kg, Total Volume: 1,000, Start date: 11/13/11 14:56:00, Duration: 30 day, Stop date: 12/13/11 14:55:00 IV No Longer Active [place] 11/13/2011 [facility] [place] 5/325 oral tablet 1 tab, Route: PO, Drug Form: TAB, Q6H, Start date: 11/13/11 12:00:00, Duration: 30 day, Stop date: 12/13/11 6:00:00 PO No Longer Active [facility] 11/13/2011 [facility] metoprolol 12.5 mg, 1 ea, Route: PO, Drug form: TAB, BID, Start date: 11/13/11 9:00:00, Duration: 30 day, Stop date: 12/12/11 17:00:00 PO No Longer Active [facility] 11/13/2011 [facility] [place] Thyroid 120 mg, 2 tab, Route: PO, Drug form: TAB, Daily, Start date: 11/13/11 9:00:00, Duration: 30 day, Stop date: 12/12/11 9:00:00 PO No Longer Active [place] 11/13/2011 [facility] aspirin 81 mg tablet, enteric coated 81 mg, 1 tab, Route: PO, Drug form: ECTAB, Daily, Start date: 11/13/11 9:00:00, Duration: 30 day, Stop date: 12/12/11 9:00:00 PO No Longer Active [place] 11/13/2011 [facility] Dilaudid 1 mg, 0.5 mL, Route: IV, Drug form: INJ, Q3H, PRN Pain, Start date: 11/13/11 6:46:00, Duration: 30 day, Stop date: 12/13/11 6:45:00 IV No Longer Active [facility] 11/13/2011 [facility] Ancef 1 gm, Route: IVPB, Drug form: PDR/INJ, ABXQ8H, Start date: 11/13/11 5:00:00, Stop date: 12/12/11 21:00:00 IVPB No Longer Active [facility] 11/13/2011 [facility] [place] Thyroid 120 mg oral tablet 120 mg, 1 tab, Daily, Substitution Allowed Active [place] 11/13/2011 [facility] aspirin 81 mg tablet, enteric coated 81 mg, 1 tab, PO, Daily, Substitution Allowed PO Active [place] 11/13/2011 [facility] Lantus 45units, SUB-Q, Bedtime, Substitution Allowed SUB-Q Active [place] 11/13/2011 [facility] NovoLog 15 unit, SUB-Q, TID-Before Meals, Substitution Allowed SUB-Q Active 11/13/2011 [facility] insulin aspart 1 unit, 0.01 mL, Route: SUB-Q, Drug form: SOLN, TID-Before Meals, PRN Blood Glucose Results, Start date: 11/13/11 4:12:00, Duration: 30 day, Stop date: 12/13/11 4:11:00 SUB- Q No Longer Active [facility] 11/13/2011 [facility] NS 1,000 mL 1,000 mL, Rate: 100 ml/hr, Infuse over: 10 hr, Route: IV, Dosing Weight 101.4 kg, Total Volume: 1,000, Start date: 11/13/11 4:12:00, Duration: 30 day, Stop date: 12/13/11 4:11:00 IV No Longer Active [place] 11/13/2011 [facility] acetaminophen-hydrocodone 325 mg-5 mg oral tablet 2 tab, Route: PO, Drug Form: TAB, Q4H, PRN Pain Score 4-6, Start date: 11/13/11 4:09:00, Duration: 30 day, Stop date: 12/13/11 4:08:00 PO No Longer Active [facility] 11/13/2011 [facility] acetaminophen 650 mg, 2 tab, Route: PO, Drug form: TAB, Q4H, PRN Pain/Fever, Start date: 11/13/11 4:09:00, Duration: 30 day, Stop date: 12/13/11 4:08:00 PO No Longer Active [place] 11/13/2011 [facility] temazepam 15 mg, 1 cap, Route: PO, Drug form: CAP, Bedtime, PRN Insomnia, Start date: 11/13/11 4:09:00, Duration: 30 day, Stop date: 12/13/11 4:08:00 PO No Longer Active [place] 11/13/2011 [facility] morphine Sulfate 2 mg, 0.5 mL, Route: IVP, Drug form: INJ, Q3H, PRN Pain Score 4-6, Start date: 11/13/11 4:09:00, Duration: 30 day, Stop date: 12/13/11 4:08:00 IVP No Longer Active 11/13/2011 [facility] docusate 100 mg, 1 cap, Route: PO, Drug form: CAP, BID, PRN Constipation, Start date: 11/13/11 4:09:00, Duration: 30 day, Stop date: 12/13/11 4:08:00 PO No Longer Active [facility] 11/13/2011 [facility] ondansetron 4 mg, 2 mL, Route: IVP, Drug form: INJ, Q6H, PRN Nausea & Vomiting, Start date: 11/13/11 4:09:00, Duration: 30 day, Stop date: 12/13/11 4:08:00 IVP No Longer Active [facility] 11/13/2011 [facility] hydromorphone 1 mg, 0.5 mL, Route: IVP, Drug form: INJ, ONCE, Priority: STAT, Start date: 11/13/11 4:00:00, Stop date: 11/13/11 4:00:00 IVP No Longer Active [facility] 11/13/2011 [facility] Sodium Chloride 0.9% IV 1,000 mL 1,000 mL, Rate: 100 ml/hr, Infuse over: 10 hr, Route: IV, Dosing Weight 101.4 kg, Total Volume: 1,000, Start date: 11/13/11 3:13:00, Duration: 30 day, Stop date: 12/13/11 3:12:00 IV No Longer Active [facility] 11/13/2011 [facility] hydromorphone 1 mg, 0.5 mL, Route: IVP, Drug form: INJ, ONCE, Priority: STAT, Start date: 11/13/11 2:11:00, Stop date: 11/13/11 2:11:00 IVP No Longer Active [facility] 11/13/2011 [facility] Ativan 0.5 mg, 0.25 mL, Route: IVP, Drug form: INJ, ONCE, PRN Anxiety, Start date: 11/13/11 2:11:00 IVP No Longer Active [facility] 11/13/2011 [facility] promethazine 12.5 mg, Route: IVPB, ONCE, Priority: STAT, Start date: 11/12/11 22:25:00, Stop date: 11/12/11 22:25:00 IVPB No Longer Active [facility] 11/13/2011 [facility] morphine Sulfate 4 mg, 1 mL, Route: IVP, Drug form: INJ, ONCE, Priority: STAT, Start date: 11/12/11 22:25:00, Stop date: 11/12/11 22:25:00 IVP No Longer Active [facility] 11/13/2011 [facility] Sodium Chloride 0.9% (Bolus) IV 1000 mL 1,000 mL, Rate: 1,000 ml/hr, Infuse over: 1 hr, Route: IV, kg, Total Volume: 1,000, Bolus Dose, Priority: STAT, Start date: 11/12/11 22:25:00, Duration: 1 doses or times, Stop date: 11/12/11 23:24:00 IV No Longer Active [facility] 11/13/2011 [facility] propofol 30 mg, 3 mL, Route: IVP, Drug form: SUSP, ONCE, Start date: 11/12/11 22:22:00, Stop date: 11/12/11 22:22:00 IVP No Longer Active [facility] 11/13/2011 [facility] fentanyl 50 microgram, 1 mL, Route: IVP, Drug form: INJ, ONCE, Priority: STAT, Start date: 11/12/11 22:21:00, Stop date: 11/12/11 22:21:00 IVP No Longer Active [facility] 11/13/2011 [facility] propofol 70 mg, 7 mL, Route: IVP, Drug form: SUSP, ONCE, Start date: 11/12/11 22:21:00, Stop date: 11/12/11 22:21:00 IVP No Longer Active [facility] 11/13/2011 [facility] tetanus/diphtheria/pertussis, acel (Tdap) 5 units-2.5 units-18.5 mcg/0.5 mL intramuscular suspensio 0.5 ml, Route: IM, ONCE, Start date: 11/12/11 21:59:00, Stop date: 11/12/11 21:59:00 IM No Longer Active [facility] 11/13/2011 [facility] droperidol 1.25 mg, 0.5 mL, Route: IVP, Drug form: INJ, ONCE, PRN Nausea & Vomiting, Start date: 11/12/11 21:47:00 IVP No Longer Active [facility] 11/13/2011 [facility] Zofran 8 mg, Route: IV, ONCE, Start date: 11/12/11 21:47:00, Stop date: 11/12/11 21:47:00 IV No Longer Active [facility] 11/13/2011 [facility] propofol 100 mg, 10 mL, Route: IVP, Drug form: SUSP, ONCE, Priority: STAT, Start date: 11/12/11 21:43:00, Stop date: 11/12/11 21:43:00 IVP No Longer Active [facility] 11/13/2011 [facility] fentanyl 50 microgram, 1 mL, Route: IVP, Drug form: INJ, ONCE, Priority: STAT, Start date: 11/12/11 21:43:00, Stop date: 11/12/11 21:43:00 IVP No Longer Active [facility] 11/13/2011 [facility] gentamicin 668.185 mg, 16.7 mL, Route: IVPB, ONCE, Priority: STAT, Start date: 11/12/11 21:42:00, Stop date: 11/12/11 21:42:00 IVPB No Longer Active [facility] 11/13/2011 [facility] tetanus-diphtheria toxoids adult intramuscular suspension 0.5 ml, Route: IM, Drug Form: INJ, ONCE, STAT, Start date: 11/12/11 21:41:00, Stop date: 11/12/11 21:41:00 IM No Longer Active [facility] 11/13/2011 [facility] cefazolin 1 gm, Route: IVPB, Drug form: PDR/INJ, ONCE, Priority: STAT, Start date: 11/12/11 21:41:00, Stop date: 11/12/11 21:41:00 IVPB No Longer Active [facility] 11/13/2011 [facility] Allergies, Adverse Reactions, Alerts Substance Category Reaction Severity Reaction type Status Date Reported Comments Source No Known Medication Allergies [facility] Immunizations Immunization Date Given Site Status Last Updated Comments Source diphtheria/pertussis, acel/tetanus adult 11/13/2011 Right deltoid completed [facility] [place] Bryanna EDGAR [facility] diphtheria/pertussis, acel/tetanus adult 11/13/2011 eleonora Castro [facility] Results Order Name Results Value Reference Range Date Interpretation Comments Source URINE AND STOOL UA Mucus Few /LPF None Seen /LPF 09/12/2014 [facility] [place] URINE AND STOOL UA Bacteria Many /HPF None Seen /HPF 09/12/2014 [facility] [place] URINE AND STOOL UA Urobilinogen <=1.0 mg/dL 0.1 - 1.0 09/12/2014 [facility] [place] URINE AND STOOL UA Color Ltyellow 09/12/2014 [facility] URINE AND STOOL UA WBC 5 0 - 5 09/12/2014 [facility] URINE AND STOOL UA Sq Epi Occasional /LPF Few /LPF 09/12/2014 [facility] [place] URINE AND STOOL UA RBC 3 0 [...] Est Negative (09/12/14 12:57 AM) Negative 09/12/2014 [facility] [place] URINE AND STOOL UA Bili Negative *NA* (09/12/14 12:57 AM) Negative 09/12/2014 [facility] [place] URINE AND STOOL UA Ketones Trace mg/dL Negative mg/dL 09/12/2014 [facility] [place] URINE AND STOOL UA Nitrite Negative (09/12/14 12:57 AM) Negative 09/12/2014 [facility] [place] URINE AND STOOL UA Blood Small *ABN* (09/12/14 12:57 AM) Negative 09/12/2014 [facility] [place] CHEM PANEL ALT 50 0 - 65 09/12/2014 [facility] [place] CHEM PANEL Albumin Lvl 3.5 3.5 - 5.0 09/12/2014 [facility] [place] CHEM PANEL Bili Total 0.3 0.2 - 1.3 09/12/2014 [facility] [place] CHEM PANEL Alk Phos 128 39 - 136 09/12/2014 [facility] [place] CHEM PANEL AST 56 0 - 37 09/12/2014 [facility] [place] CHEM PANEL Total Protein 8.0 6.4 - 8.4 09/12/2014 [facility] [place] CHEM PANEL CO2 24 24 - 32 09/12/2014 [facility] [place] CHEM PANEL BUN 13 7 - 22 09/12/2014 [facility] [place] CHEM PANEL Glucose Lvl 220 70 - 99 09/12/2014 <sup>2</sup>Interpretive Data: Adult reference range values reflect the clinical guidelines
of the [employer]. [facility] [place] CHEM PANEL eGFR 83 09/12/2014 <sup>1</sup>Result Comment: [...] should be multiplied by the estimated BMI. [facility] [place] CHEM PANEL Creatinine Lvl 0.7 0.5 - 1.4 09/12/2014 [facility] [place] CHEM PANEL Chloride Lvl 99 95 - 109 09/12/2014 [facility] [place] CHEM PANEL Calcium Lvl 8.6 8.5 - 10.5 09/12/2014 [facility] [place] CHEM PANEL Potassium Lvl 3.9 3.5 - 5.1 09/12/2014 [facility] [place] CHEM PANEL Sodium Lvl 132 135 - 145 09/12/2014 [facility] [place] CHEM PANEL A/G Ratio 0.8 0.7 - 1.6 09/12/2014 [facility] [place] CHEM PANEL Globulin 4.5 2.0 - 4.0 09/12/2014 [facility] [place] CHEM PANEL AGAP 12.9 10.0 - 20.0 09/12/2014 [facility] [place] CHEM PANEL B/C Ratio 19 6 - 25 09/12/2014 [facility] [place] HEMATOLOGY Basophils # 0.1 0.0 - 0.2 09/12/2014 [facility] [place] HEMATOLOGY Monocytes # 0.8 0.0 - 0.8 09/12/2014 [facility] [place] HEMATOLOGY Lymphocytes # 0.8 1.0 - 5.5 09/12/2014 [facility] [place] HEMATOLOGY Segs 83.4 45.0 - 75.0 09/12/2014 [facility] [place] HEMATOLOGY Segs-Bands # 8.4 1.5 - 8.1 09/12/2014 [facility] [place] HEMATOLOGY Eosinophils 0.1 0.0 - 4.0 09/12/2014 [facility] [place] HEMATOLOGY Basophils 0.7 0.0 - 1.0 09/12/2014 [facility] [place] HEMATOLOGY Lymphocytes 8.3 20.0 - 40.0 09/12/2014 [facility] [place] HEMATOLOGY Monocytes 7.5 2.0 - 12.0 09/12/2014 [facility] [place] HEMATOLOGY MCH 27.9 27.0 - 31.0 09/12/2014 [facility] [place] HEMATOLOGY MCHC 33.4 32.0 - 36.0 09/12/2014 [facility] [place] HEMATOLOGY MCV 83.8 80.0 - 98.0 09/12/2014 [facility] HEMATOLOGY Platelet 148 133 - 450 09/12/2014 [facility] [place] HEMATOLOGY RDW 15.5 11.5 - 14.5 09/12/2014 [facility] [place] HEMATOLOGY MPV 7.4 7.4 - 10.4 09/12/2014 [facility] Hct 39.6 36.0 - 48.0 09/12/2014 [facility] [place] HEMATOLOGY Hgb 13.2 12.0 - 16.0 09/12/2014 [facility] RBC 4.73 4.20 - 5.40 09/12/2014 [facility] WBC 10.0 3.7 - 10.4 09/12/2014 [facility] [place] BEDSIDE GLUCOSE TESTING Gluc POC Lifscn 151 70 - 99 11/18/2011 [place] <sup>1</sup>Interpretive Data: Upper Reportable Limit: 200 mg/dL. [facility] BEDSIDE GLUCOSE TESTING Gluc POC Lifscn 193 70 - 99 11/18/2011 [place] <sup>2</sup>Interpretive Data: Upper Reportable Limit: 200 mg/dL. [facility] BEDSIDE GLUCOSE TESTING Gluc POC Lifscn 150 65 - 110 11/18/2011 [place] <sup>3</sup>Interpretive Data: Upper Reportable Limit: 200 mg/dL. [facility] HEMATOLOGY MCHC 33.8 32.0 - 36.0 11/17/2011 Normal [facility] HEMATOLOGY MCH 28.8 27.0 - 31.0 11/17/2011 Normal [facility] HEMATOLOGY WBC 7.6 3.7 - 10.4 11/17/2011 Normal [facility] HEMATOLOGY Hct 29.0 36.0 - 48.0 11/17/2011 LOW [facility] HEMATOLOGY RBC 3.42 4.20 - 5.40 11/17/2011 LOW [facility] HEMATOLOGY Hgb 9.8 12.0 - 16.0 11/17/2011 LOW [facility] HEMATOLOGY MCV 84.9 81.0 - 99.0 11/17/2011 Normal [facility] HEMATOLOGY MPV 7.4 7.4 - 10.4 11/17/2011 Normal [facility] HEMATOLOGY RDW 14.1 11.5 - 14.5 11/17/2011 Normal [facility] HEMATOLOGY Platelet 220 133 - 450 11/17/2011 Normal [facility] HEMATOLOGY Basophils # 0.0 0.0 - 0.2 11/17/2011 Normal [facility] HEMATOLOGY Eosinophils # 0.2 0.0 - 0.5 11/17/2011 Normal [facility] HEMATOLOGY Monocytes # 0.5 0.0 - 0.8 11/17/2011 [facility] HEMATOLOGY Lymphocytes # 2.0 1.0 - 5.5 11/17/2011 [facility] HEMATOLOGY Segs-Bands # 4.9 1.5 - 8.1 11/17/2011 Normal [facility] HEMATOLOGY Eosinophils 2.3 0.0 - 4.0 11/17/2011 [facility] HEMATOLOGY Monocytes 7.2 2.0 - 12.0 11/17/2011 Normal [facility] HEMATOLOGY Basophils 0.2 0.0 - 1.0 11/17/2011 Normal [facility] HEMATOLOGY Lymphocytes 26.4 20.0 - 40.0 11/17/2011 [facility] HEMATOLOGY Segs 63.9 45.0 - 75.0 11/17/2011 Normal [facility] BEDSIDE GLUCOSE TESTING Comment1 Notify RN/MD 11/16/2011 NA [facility] HEMATOLOGY Basophils # 0.0 0.0 - 0.2 11/16/2011 Normal [facility] HEMATOLOGY Eosinophils # 0.2 0.0 - 0.5 11/16/2011 Normal [facility] HEMATOLOGY Monocytes # 0.5 0.0 - 0.8 11/16/2011 [facility] HEMATOLOGY Lymphocytes # 2.3 1.0 - 5.5 11/16/2011 Normal [facility] HEMATOLOGY Lymphocytes 23.6 20.0 - 40.0 11/16/2011 Normal [facility] HEMATOLOGY Segs 69.0 45.0 - 75.0 11/16/2011 Normal [facility] HEMATOLOGY Monocytes 5.0 2.0 - 12.0 11/16/2011 Normal [facility] HEMATOLOGY Eosinophils 2.0 0.0 - 4.0 11/16/2011 Normal [facility] HEMATOLOGY Segs-Bands # 6.8 1.5 - 8.1 11/16/2011 [facility] HEMATOLOGY Basophils 0.4 0.0 - 1.0 11/16/2011 Normal [facility] HEMATOLOGY RBC 3.53 4.20 - 5.40 11/16/2011 [facility] HEMATOLOGY Hct 29.9 36.0 - 48.0 11/16/2011 [facility] HEMATOLOGY Hgb 10.2 12.0 - 16.0 11/16/2011 [facility] HEMATOLOGY MCH 28.8 27.0 - 31.0 11/16/2011 Normal [facility] HEMATOLOGY MCV 84.6 81.0 - 99.0 11/16/2011 Normal [facility] HEMATOLOGY WBC 9.8 3.7 - 10.4 11/16/2011 Normal [facility] HEMATOLOGY Platelet 185 133 - 450 11/16/2011 Normal [facility] HEMATOLOGY RDW 13.9 11.5 - 14.5 11/16/2011 [facility] HEMATOLOGY MCHC 34.0 32.0 - 36.0 11/16/2011 [facility] HEMATOLOGY MPV 7.0 7.4 - 10.4 11/16/2011 [facility] BEDSIDE GLUCOSE TESTING Comment1 Notify RN/ 11/16/2011 [facility] BEDSIDE GLUCOSE TESTING Comment1 Notify RN/ 11/15/2011 NA [facility] CHEMISTRY Magnesium Lvl 2.1 1.8 - 2.4 11/15/2011 [facility] CHEMISTRY Phosphorus 2.7 2.5 - 4.5 11/15/2011 [facility] CHEMISTRY PTH Intact 38.3 11.1 - 79.5 11/15/2011 Normal [facility] CHEMISTRY Vitamin D2 25-OH <4 11/15/2011 NA <sup>7</sup>Result Comment: Test Performed at: [facility] [id number] [place] [address] Denise Mayer MD, PhD [facility] CHEMISTRY Vitamin D3 25-OH 12 11/15/2011 NA [facility] CHEMISTRY Vitamin D, 25-OH, Total 12 30 [...] suggest insufficiency. Optimal levels are >=30 ng/mL. [facility] CHEMISTRY Osteocalcin, N-MID 6 8 - 32 11/15/2011 LOW <sup>9</sup>Result Comment: Test Performed at: [facility] [address] [place] [address] Denise Mayer MD, PhD [facility] CHEMISTRY Glucose Lvl 161 11/14/2011 NA <sup>4</sup>Interpretive Data: Reference Ranges : 0 - 7 days : 41 - 90 mg/dL 7 days - 150 yrs : 70 - 99 mg/dL (fasting), based on the clinical recommendations of the [employer]. [facility] CHEMISTRY BUN 10 7 - 22 11/14/2011 Normal [facility] CHEMISTRY CO2 22 24 - 32 11/14/2011 LOW [facility] CHEMISTRY Chloride Lvl 104 95 - 109 11/14/2011 Normal [facility] CHEMISTRY Calcium Lvl 7.9 8.5 - 10.5 11/14/2011 LOW [facility] CHEMISTRY Creatinine Lvl 0.7 0.5 - 1.4 11/14/2011 Normal [facility] CHEMISTRY Sodium Lvl 137 135 - 145 11/14/2011 Normal [facility] CHEMISTRY Potassium Lvl 4.8 3.5 - 5.1 11/14/2011 Normal [facility] CHEMISTRY AGAP 15.8 10.0 - 20.0 11/14/2011 Normal [facility] HEMATOLOGY Basophils # 0.0 0.0 - 0.2 11/14/2011 Normal [facility] HEMATOLOGY Lymphocytes 22.7 20.0 - 40.0 11/14/2011 Normal [facility] HEMATOLOGY Eosinophils # 0.2 0.0 - 0.5 11/14/2011 Normal [facility] HEMATOLOGY Lymphocytes # 2.4 1.0 - 5.5 11/14/2011 [facility] HEMATOLOGY Monocytes # 0.9 0.0 - 0.8 11/14/2011 [facility] HEMATOLOGY Segs-Bands # 7.1 1.5 - 8.1 11/14/2011 [facility] HEMATOLOGY Basophils 0.2 0.0 - 1.0 11/14/2011 [facility] HEMATOLOGY Segs 67.1 45.0 - 75.0 11/14/2011 [facility] HEMATOLOGY Monocytes 8.4 2.0 - 12.0 11/14/2011 [facility] HEMATOLOGY Eosinophils 1.6 0.0 - 4.0 11/14/2011 [facility] HEMATOLOGY MCH 28.8 27.0 - 31.0 11/14/2011 [facility] HEMATOLOGY MCHC 33.5 32.0 - 36.0 11/14/2011 [facility] HEMATOLOGY RDW 14.5 11.5 - 14.5 11/14/2011 [facility] HEMATOLOGY Platelet 171 133 - 450 11/14/2011 [facility] HEMATOLOGY MPV 7.2 7.4 - 10.4 11/14/2011 [facility] HEMATOLOGY MCV 85.9 81.0 - 99.0 11/14/2011 [facility] HEMATOLOGY Hct 33.4 36.0 - 48.0 11/14/2011 [facility] HEMATOLOGY Hgb 11.2 12.0 - 16.0 11/14/2011 [facility] HEMATOLOGY RBC 3.88 4.20 - 5.40 11/14/2011 [facility] HEMATOLOGY WBC 10.6 3.7 - 10.4 11/14/2011 [facility] CHEMISTRY TSH 1.170 0.360 - 3.740 11/13/2011 [facility] CHEMISTRY Hgb A1C 8.5 11/13/2011 [...] 240 Poor Control, take action to lower [facility] CHEMISTRY Magnesium Lvl 1.8 1.8 - 2.4 11/13/2011 Normal [facility] CHEMISTRY Phosphorus 2.9 2.5 - 4.5 11/13/2011 Normal [facility] CHEMISTRY A/G Ratio 0.9 0.7 - 1.6 11/13/2011 Normal [facility] CHEMISTRY Globulin 4.0 2.0 - 4.0 11/13/2011 Normal [facility] CHEMISTRY B/C Ratio 21 6 - 25 11/13/2011 Normal [facility] CHEMISTRY AGAP 14.6 10.0 - 20.0 11/13/2011 Normal [facility] CHEMISTRY Albumin Lvl 3.4 3.5 - 5.0 11/13/2011 LOW [facility] CHEMISTRY ALT 37 0 - 65 11/13/2011 Normal [facility] CHEMISTRY AST 21 0 - 37 11/13/2011 Normal [facility] CHEMISTRY Alk Phos 175 39 - 136 11/13/2011 HI [facility] CHEMISTRY Bili Total 0.2 0.2 - 1.3 11/13/2011 Normal [facility] CHEMISTRY Total Protein 7.4 6.4 - 8.4 11/13/2011 Normal [facility] CHEMISTRY CO2 26 24 - 32 11/13/2011 Normal [facility] CHEMISTRY Calcium Lvl 9.2 8.5 - 10.5 11/13/2011 Normal [facility] CHEMISTRY Potassium Lvl 3.6 3.5 - 5.1 11/13/2011 Normal [facility] CHEMISTRY Chloride Lvl 102 95 - 109 11/13/2011 Normal [facility] CHEMISTRY Glucose Lvl 193 11/13/2011 NA <sup>5</sup>Interpretive Data: Reference Ranges : 0 - 7 days : 41 - 90 mg/dL 7 days - 150 yrs : 70 - 99 mg/dL (fasting), based on the clinical recommendations of the [place] [employer]. [facility] CHEMISTRY Creatinine Lvl 0.9 0.5 - 1.4 11/13/2011 Normal [facility] CHEMISTRY BUN 19 7 - 22 11/13/2011 Normal [facility] CHEMISTRY Sodium Lvl 139 135 - 145 11/13/2011 Normal [facility] HEMATOLOGY INR 0.89 0.85 - 1.17 11/13/2011 Normal <sup>10</sup>Interpretive Data: RECOMMENDED RANGES FOR PROTIME INR: 2.0-3.0 for most medical and surgical thromboembolic states. 2.5-3.5 for artificial heart valves and recurrent embolism. INR SHOULD BE USED ONLY FOR PATIENTS ON STABLE ANTICOAGULANT THERAPY. [facility] HEMATOLOGY PT 12.1 12.0 - 14.7 11/13/2011 Normal [facility] HEMATOLOGY PTT 20.1 22.9 - 35.8 11/13/2011 LOW <sup>11</sup>Interpretive Data: Heparin Therapeutic Range: 57 - 92 Seconds [facility] HEMATOLOGY Plt Morph Normal (11/12/2011 22:00:00) 11/13/2011 Normal [facility] HEMATOLOGY RBC Morph Normal (11/12/2011 22:00:00) 11/13/2011 Normal [facility] BLOOD BANK RESULTS ABO/Rh O NEG 11/13/2011 Unknown [facility] BLOOD BANK RESULTS Antibody Scrn Negative (11/12/2011 21:42:00) 11/13/2011 Normal [facility] Pathology Reports No Data Provided for This Section Diagnostic Reports Report Value Date Source Neck soft tissue w/wo contrast CT EXAM: Neck soft tissue w/wo contrast CT DATE: 10/06/2018 9:34 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 IMPRESSION: Unremarkable CT neck 10/06/2018 [facility] Breast Limited Uni US LIMITED ULTRASOUND OF RIGHT BREAST: 08/18/2017 CLINICAL: Right Breast Mass/Right Breast Mass On Screening Mammogram. COMPARISON:Comparison is made to exams dated: 05/11/2012 ultrasound, 07/26/2017 mammogram, 05/11/2012 mammogram, 04/27/2012 mammogram - [facility], 12/01/2011 mammogram, and 01/04/2009 mamm[address] - [facility]. TECHNIQUE: Color flow and real-time [...] is recommended.(08/19/2018) This exam was interpreted at [id number] for GRAEME Gould. Professional services are provided by the [employer] [facility] Division of Diagnostic Imaging. Kiran Burks M.D. cm/penrad:08/18/2017 11:05:30 Slot Machine Mechanic(s): Mariah Jolley [facility] letter sent: BI-RADS 1/2 Ultrasound BI-RADS: 2 Benign 08/18/2017 GRAEME Gould Breast Mammo Scrn CARLOS incl CAD MA BILATERAL DIGITAL SCREENING MAMMOGRAM WITH CAD: 07/26/2017 CLINICAL: Routine/Screening. Current study was evaluated with a Computer Aided Detection (CAD) system. COMPARISON:Comparison is made to exams dated: 05/11/2012 mammogram, 04/27/2012 mammogram - [facility], 12/01/2011 mammogram, 01/04/[address] - [facility], 01/04/2009 mammogram, and 02/20/2005 mammogram - [facility]. TECHNIQUE: Mammographic views were obtained [...] are recommended. This exam was interpreted at [id number] for FERNANDO Munoz 15. Kiran Burks M.D., cm/penrad:07/27/2017 11:09:01 Slot Machine Mechanic(s): RT Aleena(R)(M), [facility] letter sent: BI-RADS 0 Mammogram [...] intracranial abnormalities are visualized. SL: 16 09/12/2014 [facility] [place] Chest 1view CHEST RADIOGRAPH SINGLE VIEW INDICATION: Chest pain COMPARISON: Chest radiograph 11/12/2011 IMPRESSION: Evaluation is limited by under inflation of the lungs and patient body habitus. The cardiac silhouette appears prominent, associated with possible mild pulmonary vascular congestion. SL: 16 09/12/2014 [facility] [place] Consultation Notes No Data Provided for This Section Discharge Summaries No Data Provided for This Section History and Physicals No Data Provided for This Section Vital Signs Vital Sign Value Date Comments Source Temperature Oral (F) 98.9 F 09/12/2014 [facility] [place] Heart Rate 102 09/12/2014 [facility] Respitory Rate 20 09/12/2014 [facility] Systolic (mm Hg) 148 09/12/2014 [facility] [place] Diastolic (mm Hg) 76 09/12/2014 [facility] Height 162.56 cm 09/12/2014 [facility] Weight 100 09/12/2014 [facility] [place] Systolic (mm Hg) 152 09/12/2014 [facility] [place] Heart Rate 110 09/12/2014 [facility] [place] Diastolic (mm Hg) 73 09/12/2014 [facility] [place] Temperature Oral (F) 100.1 F 09/12/2014 [facility] [place] Respitory Rate 20 09/12/2014 [facility] [place] BMI Calculated 37.84 09/12/2014 [facility] Respitory Rate 18 11/18/2011 [facility] Temperature Oral (F) 98.1 F 11/18/2011 [facility] Diastolic (mm Hg) 56 11/18/2011 [facility] Systolic (mm Hg) 143 11/18/2011 [facility] Heart Rate 76 11/18/2011 [facility] Temperature Oral (F) 98.2 F 11/18/2011 [facility] Heart Rate 66 11/18/2011 [facility] Respitory Rate 20 11/18/2011 [facility] Systolic (mm Hg) 125 11/18/2011 [facility] Diastolic (mm Hg) 56 11/18/2011 [facility] Respitory Rate 18 11/18/2011 [facility] Systolic (mm Hg) 109 11/18/2011 [facility] Diastolic (mm Hg) 51 11/18/2011 [facility] Temperature Oral (F) 98.0 F 11/18/2011 [facility] Heart Rate 97 11/18/2011 [facility] Weight 101.364 11/13/2011 [facility] Height 162.56 cm 11/13/2011 [facility] Encounters Location Location Details Encounter Type Encounter Number Reason For Visit Attending Provider ADM Date DC Date Status Source [facility] Inpatient [id number] OPEN RT ANKLE GAEL ARMIDA 11/13/2011 11/18/2011 Active [facility] [id number] Fazal Yousif 09/12/2014 09/12/2014 [facility] [place] OP Therapy Patients [id number] Nadir Chatterjee 11/23/2014 12/23/2014 [facility] [place] [facility] [place] OP Therapy Patients [id number] Nadir Chatterjee 12/25/2014 01/24/2015 [facility] [place] [facility] - [place] Out[facility] Di[facility] Services [id number] Flex Pena 07/26/2017 07/27/2017 [facility] [place] [facility] Out[facility] - [place] [facility] [id number] Flex Pena 08/18/2017 08/19/2017 [facility] [place] [facility] - [place] Out[facility] Diag Services [id number] Shu Seaman 10/06/2018 [facility] Procedure Code Date Perfomer Comments Source Mastectomy of left breast [id number] EDGAR Gould,[facility] [place],[facility] [place], [place]GAR [facility] operation [id number] EDGAR Gould,[facility] [place],[facility] [place], [place] Assessment and Plan No Data Provided for [...] No; Reg Smoking Cessation Counseling No 09/12/2014 [facility] [place] Social History TypeResponse Smoking Status Unknown if ever smoked, Exposure to Tobacco Smoke None, Cigarette Smoking Last 365 Days No, Reg Smoking Cessation Counseling No 09/12/2014 [facility] [place] Family History No Data Provided for This Section Advance Directives No Data Provided for This Section Functional Status No Data Provided for This Section
[2019-05-01] MEDS ORDERED: SODIUM CHLORIDE 0.9% 1000ML 1,000 ML ONE (11:38)
[2019-05-01 11:55] LABS: ABG HCO3 24 mmol/L (23-28); ABG PCO2 40 mmHg (41-51); ABG PH 7.39 (7.31-7.41); ABG PO2 63 mmHg (80-105)
[2019-05-01] MEDS: CEFTRIAXONE SOD 1 GM/NS 50 ML 50 ML IV SCH (11:57)
[2019-05-01] MEDS: SODIUM CHLORIDE 0.9% 1000ML 1,000 ML IV SCH ×2 (11:59→23:35)
[2019-05-01 12:03] LABS: BASOPHILS % 0.4 % (0.0-1.0); EOSINOPHILS # (AUTO) 0.2 (0.0-0.4); EOSINOPHILS % 1.3 % (0.0-6.0); HEMATOCRIT 39.4 % (34.2-44.1); HEMOGLOBIN 12.5 g/dL (12.0-16.0); LYMPHOCYTES # (AUTO) 1.8 (1.0-3.2); LYMPHOCYTES % 16.1 % (18.0-39.1); MEAN CORPUSCULAR HEMOGLOBIN 28.5 pg (28-32); MEAN CORPUSCULAR HGB CONC 31.7 g/dL (31-35); MONOCYTES # (AUTO) 0.6 (0.2-0.8); MONOCYTES % 5.7 % (4.4-11.3); NEUTROPHILS # (AUTO) 8.5 (2.1-6.9); NEUTROPHILS % 75.9 % (38.7-80.0); PLATELET COUNT 191 x10e3/uL (140-360); RED BLOOD COUNT 4.38 x10e6/uL (3.6-5.1); RED CELL DISTRIBUTION WIDTH 15.3 % (11.7-14.4)
[2019-05-01 12:08] LABS: ALANINE AMINOTRANSFERASE 14 IU/L (0-55); ALBUMIN 3.8 g/dL (3.5-5.0); ALBUMIN/GLOBULIN RATIO 0.9 (0.8-2.0); ALKALINE PHOSPHATASE 113 IU/L (40-150); ANION GAP 14.6 mmol/L (8-16); BLOOD UREA NITROGEN 13 mg/dL (7-26); BUN/CREATININE RATIO 17 (6-25); CARBON DIOXIDE 25 mmol/L (22-29); CHLORIDE 101 mmol/L (98-107); CREATININE, SERUM 0.77 mg/dL (0.57-1.11); EST GLOMERULAR FILTRATION RATE > 60 ML/MIN (60-); GLUCOSE 139 mg/dL (74-118); POTASSIUM 4.6 mmol/L (3.5-5.1); SODIUM 136 mmol/L (136-145)
[2019-05-01 12:56] LABS: B-TYPE NATRIURETIC PEPTIDE2 19.6 pg/mL (0-100)
[2019-05-01 13:08] LABS: CREATINE KINASE 81 IU/L (29-168)
[2019-05-01] MEDS ORDERED: DEXTROSE 50% SYRINGE 50 ML IV PRN ×2 (13:15→15:00)
[2019-05-01 13:37] VITALS: BP 123/58
[2019-05-01 13:52] VITALS: BP 123/58
[2019-05-01] MEDS ORDERED: LEVOTHYROXINE50 MCG PO (14:14)
[2019-05-01] MEDS ORDERED: HYDROCODONE/APAP 5MG-325MG TAB PO PRN (15:00)
[2019-05-01] MEDS ORDERED: GUAIFENESIN/CODEINE 10 ML CUP PO PRN (15:00)
[2019-05-01] MEDS ORDERED: BENZONATATE 100 MG CAP PO PRN (15:00)
[2019-05-01] MEDS ORDERED: ONDANSETRON HCL INJ 2MG/ML 2ML 2 MG/ML VIAL IV PRN (15:00)
[2019-05-01 15:26] VITALS: BP 122/56
[2019-05-01] MEDS: PREDNISONE 10 MG TAB PO SCH (15:47)
[2019-05-01] MEDS: ACETAMINOPHEN 325 MG TAB PO PRN ×2 (15:47→20:48)
[2019-05-01] MEDS: ALBUTEROL/IPRATROPIUM 3 ML NEB NEB PRN (15:47)
[2019-05-01] MEDS: INSULIN REGULAR, HUMAN 100 UNIT/1 ML 3ML VIAL SQ SCH ×2 (16:08→20:30)
[2019-05-01] MEDS: ENOXAPARIN 30 MG/0.3 ML SYR SC SCH (16:56)
--- NOTE | 2019-05-01 17:38 | History and Physical ---
CHIEF COMPLAINT: Cough congestion. I am covering for Dr. Jean Gonsales. HISTORY OF PRESENT ILLNESS: This is an 84-year-old female, history of type 2 diabetes, morbidly obese, who is currently retired, presents to the emergency room department with a 3-day history of cough, congestion, underlying wheezing. The patient reports that one of her caregivers was very sick, had a cough, congestion, and was not feeling well and made her sick. She reports subjective fever at home. No reports of any chest pain or any palpitations. Denies any history of smoking or any asthma or COPD. The patient was seen and evaluated at bedside on the medical floor. She is currently doing well with no other issues at this time. She does report having some wheezing on examination. Vital signs were stable when I evaluated her. REVIEW OF SYSTEMS: Pertinent positive cough, congestion, wheezing subjective fever. Pertinent negatives: Denies any chest pain, palpitations, nausea, vomiting, diarrhea, dysuria, hematuria, frequency, urgency, lightheadedness, dizziness, abdominal pain, headaches, shortness of breath, or any other complaints. The rest of 14-point review of systems have been reviewed with the patient and are negative. ALLERGIES: NO KNOWN DRUG ALLERGIES. HOME MEDICATIONS: She takes: 1. NovoLog Mix 70/30, 65 units twice a day. 2. Cholecalciferol 400 units daily. 3. Levothyroxine 50 mcg daily. PAST MEDICAL HISTORY: Type 2 diabetes and hypothyroid. PAST SURGICAL HISTORY: Reports none. FAMILY HISTORY: Hypertension and diabetes. SOCIAL HISTORY: No drugs, no alcohol, does not smoke. Good social support. PHYSICAL EXAMINATION: VITAL SIGNS: Temperature is 99.5, pulse is 92, respiratory rate is 19, blood pressure 123/58, pulse ox 94% on room air. GENERAL: Not in acute distress. Alert and oriented x3. Cooperative on examination. HEENT: Head is normocephalic and atraumatic. Eyes; pupils are equal, round, and reactive to light bilaterally. Extraocular movements are intact bilaterally. Throat, no evidence of erythema or exudates in the posterior pharynx. Has poor dentition. NECK: Supple. Good range of motion. PULMONARY: There is expiratory wheezing appreciated. Fine crackles. No rales. She had good inspiratory efforts. She did have cough and congestion during examination. CARDIOVASCULAR: Positive S1 and S2. No murmurs, rubs, or gallops. ABDOMEN: Soft, nondistended, and nontender to palpation. Bowel sounds present. MUSCULOSKELETAL: Strength is 5/5 throughout. No evidence of any muscle deficits on examination. No weakness appreciated. NEUROLOGICAL: Cranial nerves II through XII grossly intact. No evidence of any neurological deficits on exam. SKIN: Intact. Warm to touch. Good cap refill. PSYCHIATRIC: Normal affect and mood. EXTREMITIES: No edema. Good range of motion throughout. LABORATORY DATA: White count 11, hemoglobin 12, hematocrit 39, and platelets of 191. Chemistries: Sodium 136, potassium 4.6, chloride 101, bicarb 25, anion gap of 14, BUN 13, creatinine 0.77, glucose 139, lactic acid was 11.6, but that is normal at this hospital and within normal range. Calcium 10, total bilirubin is 0.5, AST 15, ALT 14, alkaline phosphatase 113. CK is 81. Troponin is negative. Total protein 7.9, albumin was 3.8. BNP 19. Influenza flu was negative. MICROBIOLOGY: Blood and urine cultures are pending. IMAGING STUDIES: Chest x-ray shows findings compatible with nonspecific bronchitis. No consolidative pneumonia seen. IMPRESSION: 1. Acute bronchitis with underlying wheezing. 2. Cough, congestion with subjective fever. 3. Type 2 diabetes. 4. Hypothyroidism. PLAN: At this time, IV antibiotics, cough syrup, Robitussin with codeine, and Tessalon Perles. Blood and urine cultures collected. Repeat labs in the morning. Resume same home medications. Add prednisone 10 mg daily. Add Lantus 15 units subcu at bedtime, insulin sliding scale, Accu-Cheks. Morning labs. Lovenox for DVT prophylaxis. Heart healthy diet. Discussed plan of care with the patient and nursing staff present during bedside. Otherwise, Dr. Gonsales will be available tomorrow to continue plan of care on Ms. Eli Dallas. MD JORDAN Aguilar/ANA /[id number]
[2019-05-01 20:00] VITALS: BP 142/67
[2019-05-01 20:30] VITALS: BP 142/67
[2019-05-01] MEDS ORDERED: INSULIN GLARGINE 100 UNITS/ML VIAL SQ SCH (21:00)
[2019-05-02] VITALS (9 sets, daily range): BP systolic 140–189; BP diastolic 57–81
[2019-05-02] MEDS: LEVOTHYROXINE SODIUM 50 MCG TAB PO SCH (06:35)
[2019-05-02] MEDS: ALBUTEROL/IPRATROPIUM 3 ML NEB NEB PRN ×3 (06:51→20:10)
[2019-05-02 06:52] LABS: ALANINE AMINOTRANSFERASE 9 IU/L (0-55); ALBUMIN 3.8 g/dL (3.5-5.0); ALBUMIN/GLOBULIN RATIO 0.8 (0.8-2.0); ALKALINE PHOSPHATASE 118 IU/L (40-150); ANION GAP 14.7 mmol/L (8-16); BASOPHILS # (AUTO) 0.1 (0.0-0.1); BASOPHILS % 0.5 % (0.0-1.0); BLOOD UREA NITROGEN 10 mg/dL (7-26); BUN/CREATININE RATIO 14 (6-25); CALCIUM 10.1 mg/dL (8.4-10.2); CARBON DIOXIDE 25 mmol/L (22-29); CHLORIDE 102 mmol/L (98-107); CREATININE, SERUM 0.74 mg/dL (0.57-1.11); EOSINOPHILS # (AUTO) 0.2 (0.0-0.4); EOSINOPHILS % 1.7 % (0.0-6.0); EST GLOMERULAR FILTRATION RATE > 60 ML/MIN (60-); GLUCOSE 168 mg/dL (74-118); HEMATOCRIT 41.7 % (34.2-44.1); HEMOGLOBIN 13.7 g/dL (12.0-16.0); LYMPHOCYTES # (AUTO) 3.4 (1.0-3.2); LYMPHOCYTES % 28.9 % (18.0-39.1); MEAN CORPUSCULAR HGB CONC 32.9 g/dL (31-35); MEAN CORPUSCULAR VOLUME 88.3 fL (81-99); MONOCYTES # (AUTO) 0.7 (0.2-0.8); MONOCYTES % 5.7 % (4.4-11.3); NEUTROPHILS # (AUTO) 7.3 (2.1-6.9); NEUTROPHILS % 62.6 % (38.7-80.0); PLATELET COUNT 202 x10e3/uL (140-360); POTASSIUM 3.7 mmol/L (3.5-5.1); RED BLOOD COUNT 4.72 x10e6/uL (3.6-5.1); RED CELL DISTRIBUTION WIDTH 14.9 % (11.7-14.4); SODIUM 138 mmol/L (136-145)
[2019-05-02 07:10] LABS: CREATINE KINASE MB 4.5 ng/mL (0-5.0)
[2019-05-02] MEDS: PREDNISONE 10 MG TAB PO SCH (09:28)
[2019-05-02] MEDS: INSULIN REGULAR, HUMAN 100 UNIT/1 ML 3ML VIAL SQ SCH ×4 (09:28→20:51)
[2019-05-02] MEDS: CEFTRIAXONE SOD 1 GM/NS 50 ML 50 ML IV SCH (10:56)
[2019-05-02] MEDS: AZITHROMYCIN 500MG/NS 250 ML 250 ML IV SCH (12:58)
--- NOTE | 2019-05-02 13:16 | Diagnostic Imaging Report ---
CT of the chest, without contrast. History: Cough. Comparison: Chest radiograph from 05/01/2019. Technique: Multidetector CT scanning of the chest was performed from the level of the apices to the upper abdomen without contrast. Coronal and sagittal multiplanar reformations were obtained. RADIATION DOSE: Total DLP: 585.44 mGy*cm Dose modulation, iterative reconstruction, and/or weight based adjustment of the mA/kV was utilized to reduce the radiation dose to as low as reasonably achievable. FINDINGS: The visualized structures within the base of the neck demonstrate no significant abnormalities. The thoracic aorta is normal in course and caliber with atherosclerotic calcifications. Atherosclerotic calcifications also noted within the coronary arteries with a suspected stent within the LAD. The heart is not enlarged. No abnormal pericardial fluid is present. There is no abnormal axillary, mediastinal, or hilar lymph node enlargement. Normal-sized mediastinal lymph nodes are noted. Calcifications and surgical clips noted within the left breast which is not well evaluated on the CT examination. The trachea and proximal airways are patent. Areas of subsegmental atelectasis noted within the right upper lobe and bilateral lung bases. Scattered pulmonary micronodules are identified bilaterally. The largest measures 4 mm and is located within the right middle lobe (image 38). There is no evidence for consolidation, pneumothorax, or pleural effusion. Limited views of the upper abdomen demonstrate atherosclerotic calcifications within the visualized aorta and branch vessels. The osseous structures demonstrate degenerative changes without evidence for acute fracture or destructive process. The extrathoracic soft tissues are unremarkable. IMPRESSION: No acute intrathoracic process identified, specifically no evidence for focal consolidation. Scattered pulmonary micronodules identified bilaterally. In a low-risk patient, no follow-up is warranted. In a high-risk patient, consider [address] follow-up. Signed by: Dr. Tarik Varela MD on 05/02/2019 1:12 PM
[2019-05-02] MEDS: ENOXAPARIN 30 MG/0.3 ML SYR SC SCH (17:12)
[2019-05-02] MEDS: INSULIN ASPART 70/30 100 UNITS/ML VIAL SC SCH (17:12)
[2019-05-02] MEDS ORDERED: INSULIN GLARGINE 100 UNITS/ML VIAL SQ SCH (21:00)
[2019-05-02] MEDS ORDERED: TEMAZEPAM 15 MG CAP PO PRN (22:30)
[2019-05-02] MEDS: ACETAMINOPHEN 325 MG TAB PO PRN (22:30)
[2019-05-03] VITALS (9 sets, daily range): BP systolic 122–207; BP diastolic 70–142
[2019-05-03] MEDS: ALBUTEROL/IPRATROPIUM 3 ML NEB NEB PRN ×2 (00:55→07:10)
[2019-05-03] MEDS: LEVOTHYROXINE SODIUM 50 MCG TAB PO SCH (05:29)
[2019-05-03 05:51] LABS: BASOPHILS # (AUTO) 0.1 (0.0-0.1); BASOPHILS % 0.5 % (0.0-1.0); EOSINOPHILS # (AUTO) 0.2 (0.0-0.4); EOSINOPHILS % 2.1 % (0.0-6.0); HEMATOCRIT 38.5 % (34.2-44.1); HEMOGLOBIN 12.4 g/dL (12.0-16.0); LYMPHOCYTES # (AUTO) 2.7 (1.0-3.2); LYMPHOCYTES % 28.6 % (18.0-39.1); MEAN CORPUSCULAR HEMOGLOBIN 28.6 pg (28-32); MEAN CORPUSCULAR HGB CONC 32.2 g/dL (31-35); MEAN CORPUSCULAR VOLUME 88.9 fL (81-99); MONOCYTES # (AUTO) 0.6 (0.2-0.8); MONOCYTES % 6.1 % (4.4-11.3); NEUTROPHILS # (AUTO) 5.8 (2.1-6.9); NEUTROPHILS % 62.2 % (38.7-80.0); PLATELET COUNT 196 x10e3/uL (140-360); RED BLOOD COUNT 4.33 x10e6/uL (3.6-5.1); RED CELL DISTRIBUTION WIDTH 14.8 % (11.7-14.4)
[2019-05-03] MEDS: INSULIN ASPART 70/30 100 UNITS/ML VIAL SC SCH ×2 (07:30→17:34)
[2019-05-03] MEDS: INSULIN REGULAR, HUMAN 100 UNIT/1 ML 3ML VIAL SQ SCH ×4 (07:30→20:20)
[2019-05-03] MEDS ORDERED: ALBUTEROL/IPRATROPIUM 3 ML NEB NEB PRN (09:15)
[2019-05-03] MEDS: PREDNISONE 10 MG TAB PO SCH (09:26)
[2019-05-03] MEDS: GUAIFENESIN 600 MG TAB PO SCH ×2 (10:07→16:38)
[2019-05-03] MEDS: CEFTRIAXONE SOD 1 GM/NS 50 ML 50 ML IV SCH (12:34)
[2019-05-03] MEDS: ACETAMINOPHEN 325 MG TAB PO PRN (12:35)
[2019-05-03] MEDS: AZITHROMYCIN 500MG/NS 250 ML 250 ML IV SCH (13:31)
[2019-05-03] MEDS: IPRATROPIUM BROMIDE 0.02% 2.5 ML NEB NEB SCH ×2 (14:50→19:45)
[2019-05-03] MEDS ORDERED: ONDANSETRON HCL 4 MG ORAL DISINTEGRATING TAB PO PRN (15:30)
[2019-05-03] MEDS: LEVALBUTEROL HCL SOLN NEBU 1.25 MG/3 ML NEB INH SCH ×2 (15:50→19:45)
[2019-05-03] MEDS: ENOXAPARIN 30 MG/0.3 ML SYR SC SCH (16:38)
[2019-05-04] VITALS: BP 142/65
[2019-05-04] MEDS: IPRATROPIUM BROMIDE 0.02% 2.5 ML NEB NEB SCH ×2 (00:30→07:00)
[2019-05-04] MEDS: LEVALBUTEROL HCL SOLN NEBU 1.25 MG/3 ML NEB INH SCH ×2 (00:30→07:00)
[2019-05-04] MEDS: ACETAMINOPHEN 325 MG TAB PO PRN (01:24)
[2019-05-04 04:00] VITALS: BP 131/59
[2019-05-04] MEDS: LEVOTHYROXINE SODIUM 50 MCG TAB PO SCH (06:42)
[2019-05-04] MEDS: INSULIN REGULAR, HUMAN 100 UNIT/1 ML 3ML VIAL SQ SCH (07:30)
[2019-05-04 08:12] VITALS: BP 144/67
[2019-05-04] MEDS: PREDNISONE 10 MG TAB PO SCH (09:36)
[2019-05-04] MEDS: GUAIFENESIN 600 MG TAB PO SCH (09:36)
--- NOTE | 2019-05-05 07:31 | Discharge Summary ---
FINAL DIAGNOSES: 1. Acute bronchitis. 2. Community-acquired pneumonia. 3. Acute hypoxia, resolved. 4. Baseline multiple chronic medical problems including diabetes type 2, hypothyroidism, and hypertension. SUMMARY: The patient is an 84-year-old female, who came in with hypoxia, increasing wheezing, especially during the night, difficulty breathing, brought the patient to the hospital. The patient's CT scan show significant bronchitis with multiple area of spot consistent with most likely atypical pneumonia. The patient was treated with antibiotics, nebulizer treatment, and steroids. She is doing much better now. The patient will go home with the following instructions: 1. Resume home medication. 2. Nebulizer with DuoNeb 1 q.6h p.r.n., Medrol Dosepak to finish, Keflex 500 mg t.i.d. for seven days, Mucinex 600 mg twice a day for 15 days, Cheratussin AC 1 teaspoon q.6h p.r.n. for cough. The patient is stable, discharged home, follow up as an outpatient within a week. The patient is stable, discharged home today. MD COURT Martel/ANA /[id number]
== END 2019-05-04 09:56 | disposition home or self-care (01) | DRG 202 ==
LOC: ER 09:54 → ERHOLD 11:13 → MED/SURG3 13:18 → OBSVTOIN 05-03 09:04
PROVIDERS: ADMIT Internal Medicine; ATTEND Internal Medicine
DX: J20.9 Acute bronchitis, unspecified (principal); J18.9 Pneumonia, unspecified organism; Z68.41 Body mass index [BMI] 40.0-44.9, adult; R09.02 Hypoxemia; E03.9 Hypothyroidism, unspecified; I10 Essential (primary) hypertension; E11.9 Type 2 diabetes mellitus without complications; E66.01 Morbid (severe) obesity due to excess calories
CPT/HCPCS: 36415; 36600; 71045; 71250; 80053; 82550; 82553; 82805; 82948; 83605; 83880; 84484; 85025; 87040; 87086; 87186; 87400; 94640; 96360; 99284; G0378; J0456; J0696; J1650; J1815; J1817; J7030; J7512

== ENCOUNTER 2019-05-17 17:16 | Emergency (ER) | payer MEDICARE, OTHER ==
[~2019-05-17] VITALS: Ht 160 cm; Wt 108.9 kg
[~2019-05-17 17:16] MED LIST changes: +LEVOTHYROXINE50 MCG PO
[2019-05-17] MEDS ORDERED: TRAMADOL HCL 50 MG TAB PO ONE (17:30)
--- OUTSIDE RECORDS SUMMARY | 2019-05-17 17:50 | XMS REPORT | Continuity of Care Document ---
Author Author Sp[facility] Address Unknown Phone Unavailable Care Team Providers Care Clinical Specialist Medical Device Name Role Phone [employer] Unavailable Unavailable Problems Problem Status Onset Date Classification Date Reported Comments Source Pain in throat 10/12/2018 [facility] [place] Z12.31 - ENCNTR SCREEN MAMMOGRAM FOR MA Active 07/08/2017 [facility] [place] Discharge Diagnosis: Acute head injury 09/12/2014 09/14/2014 [facility] Discharge Diagnosis: Accidental fall 09/12/2014 09/14/2014 [facility] FALL Active 09/11/2014 [facility] OPEN RT ANKLE Active 11/12/2011 [facility] Diabetes mellitus (disorder) Active Problem 04/26/2019 EDGAR [place],[facility] [place], [facility] [place] Hypertriglyceridemia (disorder) Active Problem 04/26/2019 EDGAR [place],[facility] [place], [facility] [place] Hypothyroidism (disorder) Active Problem 04/26/2019 [facility] [place],[facility] [place], [facility] [place] Pain (finding) Active Problem 04/26/2019 EDGAR [place],[facility] [place], [facility] [place] Encounter for screening mammogram for malignant neoplasm of breast 07/29/2017 [facility] [place] Pain Active Problem 11/20/2011 [facility] FX ANKLE NOS-OPEN Active [facility] LT SHOULDER TEAR/RT ANKLE Active [facility] [place] LT SHOULDER TEAR R/ANKLE Active [facility] [place] Medications Medication Details Route Status Patient Instructions Ordering Provider Order Date Source Acetaminophen 650 mg, 2 tab, Route: PO, Drug form: TAB, ONCE, Dosing Weight 100, kg, Priority: STAT, Start date: 09/12/14 2:13:00, Stop date: 09/12/14 2:13:00Notes: Do not exceed 4 gm/day. (Same as: Tylenol) Inactive 09/12/2014 [facility] Azithromycin 500 MG Oral Tablet 500 mg=1 tab, PO, Daily, # 10 tab, 0 Refill(s) Active 09/12/2014 [facility] Azithromycin 500 mg, 2 tab, Route: PO, Drug form: TAB, ONCE, Dosing Weight 100, kg, Start date: 09/12/14 2:12:00, Stop date: 09/12/14 2:12:00Notes: Take 1 hour before or 2 hours after meals. (Same As: Zithromax) Inactive 09/12/2014 [facility] lactulose 10 g/15 mL oral syrup 10 gm, 15 mL, PO, QID, PRN, 840 mL, Constipation, Substitution Allowed, Maintenance, SYRP PO Active [place] 11/18/2011 [facility] Lovenox 40 mg/0.4 mL subcutaneous solution 40 mg, 0.4 mL, SUB-Q, Daily, 8 mL, Substitution Allowed, SOLN SUB-Q Active [facility] 11/18/2011 [facility] Senokot S oral tablet 2 tab, PO, BID, 56 tab, Substitution Allowed, Maintenance, TAB PO Active [facility] 11/18/2011 [facility] bisacodyl 10 mg rectal suppository 10 mg, 1 supp, OR, Daily, PRN, 14 supp, Constipation, Substitution Allowed, SUPP OR Active [facility] 11/18/2011 [facility] acetaminophen-hydrocodone 325 mg-5 mg oral tablet 1 tab, PO, Q4H, PRN, 84 tab, Pain Score 1-3, Substitution Allowed, Maintenance, TAB PO Active [facility] 11/18/2011 [facility] insulin aspart 10 unit, 0.1 mL, Route: SUB-Q, Drug form: SOLN, TID-Before Meals, PRN Blood Glucose Results, Start date: 11/17/11 20:24:00, Duration: 30 day, Stop date: 12/17/11 20:23:00 SUB-Q No Longer Active [facility] 11/18/2011 [facility] lactulose 10 gm, 15 ml, Route: PO, Drug Form: SYRP, QID, PRN Constipation, Start date: 11/17/11 18:08:00, Duration: 30 day, Stop date: 12/17/11 18:07:00 PO No Longer Active [facility] 11/17/2011 [facility] Senokot S oral tablet 2 tab, Route: PO, Drug Form: TAB, BID, NOW, Start date: 11/17/11 18:06:00, Duration: 30 day, Stop date: 12/17/11 17:00:00 PO No Longer Active [facility] 11/17/2011 [facility] bisacodyl 10 mg, 1 supp, Route: OR, Drug form: SUPP, Daily, PRN Constipation, Priority: NOW, Start date: 11/17/11 14:13:00, Duration: 30 day, Stop date: 12/17/11 14:12:00 OR No Longer Active [facility] 11/17/2011 [facility] lactulose 10 gm, 15 ml, Route: PO, Drug Form: SYRP, QID, PRN Constipation, Start date: 11/17/11 13:55:00, Duration: 30 day, Stop date: 12/17/11 13:54:00 PO No Longer Active [facility] 11/17/2011 [facility] Milk of Magnesia 10 mL, Route: PO, Drug Form: SUSP, BID, PRN as needed for constipation, NOW, Start date: 11/16/11 11:31:00, Duration: 30 day, Stop date: 12/16/11 11:30:00 PO No Longer Active [facility] 11/16/2011 [facility] insulin regular human recombinant 100 units/mL injectable solution 3 unit, 0.03 mL, Route: SUB-Q, Drug form: SOLN, PRN, PRN Abnormal Lab Result, Start date: 11/15/11 10:22:00, Duration: 30 day, Stop date: 12/15/11 10:21:00 SUB-Q No Longer Active [facility] 11/15/2011 [facility] Dextrose 50% Syringe 6.25 gm, 12.5 mL, Route: IVP, Drug Form: INJ, PRN, PRN Abnormal Lab Result, Start date: 11/15/11 10:22:00, Duration: 30 day, Stop date: 12/15/11 10:21:00 IVP No Longer Active [facility] 11/15/2011 [facility] insulin aspart 15 unit, 0.15 mL, Route: SUB-Q, Drug form: SOLN, TID, Priority: NOW, Start date: 11/14/11 16:06:00, Stop date: 12/14/11 13:00:00 SUB-Q No Longer Active [facility] 11/14/2011 [facility] Lovenox 40 mg, 0.4 mL, Route: SUB-Q, Drug form: INJ, Daily, Start date: 11/14/11 9:00:00, Duration: 30 day, Stop date: 12/13/11 9:00:00 SUB-Q No Longer Active [place] 11/14/2011 [facility] Lantus Route: SUB-Q, Drug form: INJ, Bedtime, Start date: 11/13/11 21:00:00, Duration: 30 day, Stop date: 12/12/11 21:00:00 SUB-Q No Longer Active [facility] 11/14/2011 [facility] ketorolac 30 mg/mL injectable solution 30 mg, Route: IVP, ONCE, Start date: 11/13/11 16:02:00, Stop date: 11/13/11 16:02:00 IVP No Longer Active [place] 11/13/2011 [facility] cefazolin 1 gm, Route: IVPB, Drug form: PDR/INJ, ABXQ8H, Start date: 11/13/11 15:00:00, Duration: 72 hr, Stop date: 11/16/11 4:00:00 IVPB No Longer Active [place] 11/13/2011 [facility] Lactated Ringers IV 1,000 mL 1,000 mL, Rate: 125 ml/hr, Infuse over: 8 hr, Route: IV, Dosing Weight 101.3 kg, Total Volume: 1,000, Start date: 11/13/11 14:56:00, Duration: 30 day, Stop date: 12/13/11 14:55:00 IV No Longer Active [place] 11/13/2011 [facility] [place] 5/325 oral tablet 1 tab, Route: PO, Drug Form: TAB, Q6H, Start date: 11/13/11 12:00:00, Duration: 30 day, Stop date: 12/13/11 6:00:00 PO No Longer Active [facility] 11/13/2011 [facility] metoprolol 12.5 mg, 1 ea, Route: PO, Drug form: TAB, BID, Start date: 11/13/11 9:00:00, Duration: 30 day, Stop date: 12/12/11 17:00:00 PO No Longer Active [facility] 11/13/2011 [facility] [place] Thyroid 120 mg, 2 tab, Route: PO, Drug form: TAB, Daily, Start date: 11/13/11 9:00:00, Duration: 30 day, Stop date: 12/12/11 9:00:00 PO No Longer Active [place] 11/13/2011 [facility] aspirin 81 mg tablet, enteric coated 81 mg, 1 tab, Route: PO, Drug form: ECTAB, Daily, Start date: 11/13/11 9:00:00, Duration: 30 day, Stop date: 12/12/11 9:00:00 PO No Longer Active [place] 11/13/2011 [facility] Dilaudid 1 mg, 0.5 mL, Route: IV, Drug form: INJ, Q3H, PRN Pain, Start date: 11/13/11 6:46:00, Duration: 30 day, Stop date: 12/13/11 6:45:00 IV No Longer Active [facility] 11/13/2011 [facility] Ancef 1 gm, Route: IVPB, Drug form: PDR/INJ, ABXQ8H, Start date: 11/13/11 5:00:00, Stop date: 12/12/11 21:00:00 IVPB No Longer Active [facility] 11/13/2011 [facility] [place] Thyroid 120 mg oral tablet 120 mg, 1 tab, Daily, Substitution Allowed Active [place] 11/13/2011 [facility] aspirin 81 mg tablet, enteric coated 81 mg, 1 tab, PO, Daily, Substitution Allowed PO Active [place] 11/13/2011 [facility] Lantus 45units, SUB-Q, Bedtime, Substitution Allowed SUB-Q Active [place] 11/13/2011 [facility] NovoLog 15 unit, SUB-Q, TID-Before Meals, Substitution Allowed SUB-Q Active 11/13/2011 [facility] insulin aspart 1 unit, 0.01 mL, Route: SUB-Q, Drug form: SOLN, TID-Before Meals, PRN Blood Glucose Results, Start date: 11/13/11 4:12:00, Duration: 30 day, Stop date: 12/13/11 4:11:00 SUB- Q No Longer Active [facility] 11/13/2011 [facility] NS 1,000 mL 1,000 mL, Rate: 100 ml/hr, Infuse over: 10 hr, Route: IV, Dosing Weight 101.4 kg, Total Volume: 1,000, Start date: 11/13/11 4:12:00, Duration: 30 day, Stop date: 12/13/11 4:11:00 IV No Longer Active [place] 11/13/2011 [facility] acetaminophen-hydrocodone 325 mg-5 mg oral tablet 2 tab, Route: PO, Drug Form: TAB, Q4H, PRN Pain Score 4-6, Start date: 11/13/11 4:09:00, Duration: 30 day, Stop date: 12/13/11 4:08:00 PO No Longer Active [facility] 11/13/2011 [facility] acetaminophen 650 mg, 2 tab, Route: PO, Drug form: TAB, Q4H, PRN Pain/Fever, Start date: 11/13/11 4:09:00, Duration: 30 day, Stop date: 12/13/11 4:08:00 PO No Longer Active [place] 11/13/2011 [facility] temazepam 15 mg, 1 cap, Route: PO, Drug form: CAP, Bedtime, PRN Insomnia, Start date: 11/13/11 4:09:00, Duration: 30 day, Stop date: 12/13/11 4:08:00 PO No Longer Active [place] 11/13/2011 [facility] morphine Sulfate 2 mg, 0.5 mL, Route: IVP, Drug form: INJ, Q3H, PRN Pain Score 4-6, Start date: 11/13/11 4:09:00, Duration: 30 day, Stop date: 12/13/11 4:08:00 IVP No Longer Active 11/13/2011 [facility] docusate 100 mg, 1 cap, Route: PO, Drug form: CAP, BID, PRN Constipation, Start date: 11/13/11 4:09:00, Duration: 30 day, Stop date: 12/13/11 4:08:00 PO No Longer Active [facility] 11/13/2011 [facility] ondansetron 4 mg, 2 mL, Route: IVP, Drug form: INJ, Q6H, PRN Nausea & Vomiting, Start date: 11/13/11 4:09:00, Duration: 30 day, Stop date: 12/13/11 4:08:00 IVP No Longer Active [facility] 11/13/2011 [facility] hydromorphone 1 mg, 0.5 mL, Route: IVP, Drug form: INJ, ONCE, Priority: STAT, Start date: 11/13/11 4:00:00, Stop date: 11/13/11 4:00:00 IVP No Longer Active [facility] 11/13/2011 [facility] Sodium Chloride 0.9% IV 1,000 mL 1,000 mL, Rate: 100 ml/hr, Infuse over: 10 hr, Route: IV, Dosing Weight 101.4 kg, Total Volume: 1,000, Start date: 11/13/11 3:13:00, Duration: 30 day, Stop date: 12/13/11 3:12:00 IV No Longer Active [facility] 11/13/2011 [facility] hydromorphone 1 mg, 0.5 mL, Route: IVP, Drug form: INJ, ONCE, Priority: STAT, Start date: 11/13/11 2:11:00, Stop date: 11/13/11 2:11:00 IVP No Longer Active [facility] 11/13/2011 [facility] Ativan 0.5 mg, 0.25 mL, Route: IVP, Drug form: INJ, ONCE, PRN Anxiety, Start date: 11/13/11 2:11:00 IVP No Longer Active [facility] 11/13/2011 [facility] promethazine 12.5 mg, Route: IVPB, ONCE, Priority: STAT, Start date: 11/12/11 22:25:00, Stop date: 11/12/11 22:25:00 IVPB No Longer Active [facility] 11/13/2011 [facility] morphine Sulfate 4 mg, 1 mL, Route: IVP, Drug form: INJ, ONCE, Priority: STAT, Start date: 11/12/11 22:25:00, Stop date: 11/12/11 22:25:00 IVP No Longer Active [facility] 11/13/2011 [facility] Sodium Chloride 0.9% (Bolus) IV 1000 mL 1,000 mL, Rate: 1,000 ml/hr, Infuse over: 1 hr, Route: IV, kg, Total Volume: 1,000, Bolus Dose, Priority: STAT, Start date: 11/12/11 22:25:00, Duration: 1 doses or times, Stop date: 11/12/11 23:24:00 IV No Longer Active [facility] 11/13/2011 [facility] propofol 30 mg, 3 mL, Route: IVP, Drug form: SUSP, ONCE, Start date: 11/12/11 22:22:00, Stop date: 11/12/11 22:22:00 IVP No Longer Active [facility] 11/13/2011 [facility] fentanyl 50 microgram, 1 mL, Route: IVP, Drug form: INJ, ONCE, Priority: STAT, Start date: 11/12/11 22:21:00, Stop date: 11/12/11 22:21:00 IVP No Longer Active [facility] 11/13/2011 [facility] propofol 70 mg, 7 mL, Route: IVP, Drug form: SUSP, ONCE, Start date: 11/12/11 22:21:00, Stop date: 11/12/11 22:21:00 IVP No Longer Active [facility] 11/13/2011 [facility] tetanus/diphtheria/pertussis, acel (Tdap) 5 units-2.5 units-18.5 mcg/0.5 mL intramuscular suspensio 0.5 ml, Route: IM, ONCE, Start date: 11/12/11 21:59:00, Stop date: 11/12/11 21:59:00 IM No Longer Active [facility] 11/13/2011 [facility] droperidol 1.25 mg, 0.5 mL, Route: IVP, Drug form: INJ, ONCE, PRN Nausea & Vomiting, Start date: 11/12/11 21:47:00 IVP No Longer Active [facility] 11/13/2011 [facility] Zofran 8 mg, Route: IV, ONCE, Start date: 11/12/11 21:47:00, Stop date: 11/12/11 21:47:00 IV No Longer Active [facility] 11/13/2011 [facility] propofol 100 mg, 10 mL, Route: IVP, Drug form: SUSP, ONCE, Priority: STAT, Start date: 11/12/11 21:43:00, Stop date: 11/12/11 21:43:00 IVP No Longer Active [facility] 11/13/2011 [facility] fentanyl 50 microgram, 1 mL, Route: IVP, Drug form: INJ, ONCE, Priority: STAT, Start date: 11/12/11 21:43:00, Stop date: 11/12/11 21:43:00 IVP No Longer Active [facility] 11/13/2011 [facility] gentamicin 668.185 mg, 16.7 mL, Route: IVPB, ONCE, Priority: STAT, Start date: 11/12/11 21:42:00, Stop date: 11/12/11 21:42:00 IVPB No Longer Active [facility] 11/13/2011 [facility] tetanus-diphtheria toxoids adult intramuscular suspension 0.5 ml, Route: IM, Drug Form: INJ, ONCE, STAT, Start date: 11/12/11 21:41:00, Stop date: 11/12/11 21:41:00 IM No Longer Active [facility] 11/13/2011 [facility] cefazolin 1 gm, Route: IVPB, Drug form: PDR/INJ, ONCE, Priority: STAT, Start date: 11/12/11 21:41:00, Stop date: 11/12/11 21:41:00 IVPB No Longer Active [facility] 11/13/2011 [facility] Allergies, Adverse Reactions, Alerts Substance Category Reaction Severity Reaction type Status Date Reported Comments Source No Known Medication Allergies Assertion [facility] [place] Immunizations Immunization Date Given Site Status Last Updated Comments Source diphtheria/pertussis, acel/tetanus adult 11/13/2011 Right deltoid completed [facility] Bryanna EDGAR [place] diphtheria/pertussis, acel/tetanus adult 11/13/2011 eleonora Castro [facility] Results Order Name Results Value Reference Range Date Interpretation Comments Source URINE AND STOOL UA Mucus Few /LPF None Seen /LPF 09/12/2014 [facility] URINE AND STOOL UA Bacteria Many /HPF None Seen /HPF 09/12/2014 [facility] URINE AND STOOL UA Urobilinogen <=1.0 mg/dL 0.1 - 1.0 09/12/2014 [facility] URINE AND STOOL UA Color Ltyellow 09/12/2014 [place] URINE AND STOOL UA WBC 5 0 - 5 09/12/2014 [place] URINE AND STOOL UA Sq Epi Occasional /LPF Few /LPF 09/12/2014 [facility] URINE AND STOOL UA RBC 3 0 [...] Est Negative (09/12/14 12:57 AM) Negative 09/12/2014 [facility] URINE AND STOOL UA Bili Negative *NA* (09/12/14 12:57 AM) Negative 09/12/2014 [facility] URINE AND STOOL UA Ketones Trace mg/dL Negative mg/dL 09/12/2014 [facility] URINE AND STOOL UA Nitrite Negative (09/12/14 12:57 AM) Negative 09/12/2014 [facility] URINE AND STOOL UA Blood Small *ABN* (09/12/14 12:57 AM) Negative 09/12/2014 [facility] CHEM PANEL ALT 50 0 - 65 09/12/2014 [facility] CHEM PANEL Albumin Lvl 3.5 3.5 - 5.0 09/12/2014 [facility] CHEM PANEL Bili Total 0.3 0.2 - 1.3 09/12/2014 [facility] CHEM PANEL Alk Phos 128 39 - 136 09/12/2014 [facility] CHEM PANEL AST 56 0 - 37 09/12/2014 [facility] CHEM PANEL Total Protein 8.0 6.4 - 8.4 09/12/2014 [facility] CHEM PANEL CO2 24 24 - 32 09/12/2014 [facility] CHEM PANEL BUN 13 7 - 22 09/12/2014 [facility] CHEM PANEL Glucose Lvl 220 70 - 99 09/12/2014 <sup>2</sup>Interpretive Data: Adult reference range values reflect the clinical guidelines
of the [place] [employer]. [facility] CHEM PANEL eGFR 83 09/12/2014 <sup>1</sup>Result Comment: [...] should be multiplied by the estimated BMI. [facility] CHEM PANEL Creatinine Lvl 0.7 0.5 - 1.4 09/12/2014 [facility] CHEM PANEL Chloride Lvl 99 95 - 109 09/12/2014 [facility] CHEM PANEL Calcium Lvl 8.6 8.5 - 10.5 09/12/2014 [facility] CHEM PANEL Potassium Lvl 3.9 3.5 - 5.1 09/12/2014 [facility] CHEM PANEL Sodium Lvl 132 135 - 145 09/12/2014 [facility] CHEM PANEL A/G Ratio 0.8 0.7 - 1.6 09/12/2014 [facility] CHEM PANEL Globulin 4.5 2.0 - 4.0 09/12/2014 [facility] CHEM PANEL AGAP 12.9 10.0 - 20.0 09/12/2014 [facility] CHEM PANEL B/C Ratio 19 6 - 25 09/12/2014 [facility] HEMATOLOGY Basophils # 0.1 0.0 - 0.2 09/12/2014 [facility] HEMATOLOGY Monocytes # 0.8 0.0 - 0.8 09/12/2014 [facility] HEMATOLOGY Lymphocytes # 0.8 1.0 - 5.5 09/12/2014 [facility] HEMATOLOGY Segs 83.4 45.0 - 75.0 09/12/2014 [facility] HEMATOLOGY Segs-Bands # 8.4 1.5 - 8.1 09/12/2014 [facility] HEMATOLOGY Eosinophils 0.1 0.0 - 4.0 09/12/2014 [facility] HEMATOLOGY Basophils 0.7 0.0 - 1.0 09/12/2014 [facility] HEMATOLOGY Lymphocytes 8.3 20.0 - 40.0 09/12/2014 [facility] HEMATOLOGY Monocytes 7.5 2.0 - 12.0 09/12/2014 [facility] HEMATOLOGY MCH 27.9 27.0 - 31.0 09/12/2014 [facility] HEMATOLOGY MCHC 33.4 32.0 - 36.0 09/12/2014 [facility] HEMATOLOGY MCV 83.8 80.0 - 98.0 09/12/2014 [facility] HEMATOLOGY Platelet 148 133 - 450 09/12/2014 [facility] HEMATOLOGY RDW 15.5 11.5 - 14.5 09/12/2014 [facility] HEMATOLOGY MPV 7.4 7.4 - 10.4 09/12/2014 [facility] Hct 39.6 36.0 - 48.0 09/12/2014 [facility] HEMATOLOGY Hgb 13.2 12.0 - 16.0 09/12/2014 [facility] RBC 4.73 4.20 - 5.40 09/12/2014 [facility] WBC 10.0 3.7 - 10.4 09/12/2014 [facility] BEDSIDE GLUCOSE TESTING Gluc POC Lifscn 151 70 - 99 11/18/2011 [place] <sup>1</sup>Interpretive Data: Upper Reportable Limit: 200 mg/dL. [facility] BEDSIDE GLUCOSE TESTING Gluc POC [place] 193 70 - 99 11/18/2011 [place] <sup>2</sup>Interpretive Data: Upper Reportable Limit: 200 mg/dL. [facility] BEDSIDE GLUCOSE TESTING Gluc POC [place] 150 65 - 110 11/18/2011 [place] <sup>3</sup>Interpretive Data: Upper Reportable Limit: 200 mg/dL. [facility] HEMATOLOGY MCHC 33.8 32.0 - 36.0 11/17/2011 Normal [facility] HEMATOLOGY MCH 28.8 27.0 - 31.0 11/17/2011 Normal [facility] HEMATOLOGY WBC 7.6 3.7 - 10.4 11/17/2011 Normal [facility] HEMATOLOGY Hct 29.0 36.0 - 48.0 11/17/2011 LOW [facility] HEMATOLOGY RBC 3.42 4.20 - 5.40 11/17/2011 LOW [facility] HEMATOLOGY Hgb 9.8 12.0 - 16.0 11/17/2011 LOW [facility] HEMATOLOGY MCV 84.9 81.0 - 99.0 11/17/2011 Normal [facility] HEMATOLOGY MPV 7.4 7.4 - 10.4 11/17/2011 Normal [facility] HEMATOLOGY RDW 14.1 11.5 - 14.5 11/17/2011 Normal [facility] HEMATOLOGY Platelet 220 133 - 450 11/17/2011 Normal [facility] HEMATOLOGY Basophils # 0.0 0.0 - 0.2 11/17/2011 Normal [facility] HEMATOLOGY Eosinophils # 0.2 0.0 - 0.5 11/17/2011 Normal [facility] HEMATOLOGY Monocytes # 0.5 0.0 - 0.8 11/17/2011 [facility] HEMATOLOGY Lymphocytes # 2.0 1.0 - 5.5 11/17/2011 [facility] HEMATOLOGY Segs-Bands # 4.9 1.5 - 8.1 11/17/2011 Normal [facility] HEMATOLOGY Eosinophils 2.3 0.0 - 4.0 11/17/2011 [facility] HEMATOLOGY Monocytes 7.2 2.0 - 12.0 11/17/2011 Normal [facility] HEMATOLOGY Basophils 0.2 0.0 - 1.0 11/17/2011 Normal [facility] HEMATOLOGY Lymphocytes 26.4 20.0 - 40.0 11/17/2011 [facility] HEMATOLOGY Segs 63.9 45.0 - 75.0 11/17/2011 Normal [facility] BEDSIDE GLUCOSE TESTING Comment1 Notify RN/MD 11/16/2011 NA [facility] HEMATOLOGY Basophils # 0.0 0.0 - 0.2 11/16/2011 Normal [facility] HEMATOLOGY Eosinophils # 0.2 0.0 - 0.5 11/16/2011 Normal [facility] HEMATOLOGY Monocytes # 0.5 0.0 - 0.8 11/16/2011 [facility] HEMATOLOGY Lymphocytes # 2.3 1.0 - 5.5 11/16/2011 Normal [facility] HEMATOLOGY Lymphocytes 23.6 20.0 - 40.0 11/16/2011 Normal [facility] HEMATOLOGY Segs 69.0 45.0 - 75.0 11/16/2011 Normal [facility] HEMATOLOGY Monocytes 5.0 2.0 - 12.0 11/16/2011 Normal [facility] HEMATOLOGY Eosinophils 2.0 0.0 - 4.0 11/16/2011 Normal [facility] HEMATOLOGY Segs-Bands # 6.8 1.5 - 8.1 11/16/2011 [facility] HEMATOLOGY Basophils 0.4 0.0 - 1.0 11/16/2011 Normal [facility] HEMATOLOGY RBC 3.53 4.20 - 5.40 11/16/2011 [facility] HEMATOLOGY Hct 29.9 36.0 - 48.0 11/16/2011 [facility] HEMATOLOGY Hgb 10.2 12.0 - 16.0 11/16/2011 [facility] HEMATOLOGY MCH 28.8 27.0 - 31.0 11/16/2011 Normal [facility] HEMATOLOGY MCV 84.6 81.0 - 99.0 11/16/2011 Normal [facility] HEMATOLOGY WBC 9.8 3.7 - 10.4 11/16/2011 Normal [facility] HEMATOLOGY Platelet 185 133 - 450 11/16/2011 Normal [facility] HEMATOLOGY RDW 13.9 11.5 - 14.5 11/16/2011 [facility] HEMATOLOGY MCHC 34.0 32.0 - 36.0 11/16/2011 [facility] HEMATOLOGY MPV 7.0 7.4 - 10.4 11/16/2011 [facility] BEDSIDE GLUCOSE TESTING Comment1 Notify RN/ 11/16/2011 [facility] BEDSIDE GLUCOSE TESTING Comment1 Notify RN/ 11/15/2011 NA [facility] CHEMISTRY Magnesium Lvl 2.1 1.8 - 2.4 11/15/2011 [facility] CHEMISTRY Phosphorus 2.7 2.5 - 4.5 11/15/2011 [facility] CHEMISTRY PTH Intact 38.3 11.1 - 79.5 11/15/2011 Normal [facility] CHEMISTRY Vitamin D2 25-OH <4 11/15/2011 NA <sup>7</sup>Result Comment: Test Performed at: [facility] [id number] [place] [address] Denise Mayer MD, PhD [facility] CHEMISTRY Vitamin D3 25-OH 12 11/15/2011 NA [facility] CHEMISTRY Vitamin D, 25-OH, Total [...] suggest insufficiency. Optimal levels are >=30 ng/mL. [facility] CHEMISTRY Osteocalcin, N-MID 6 8 - 32 11/15/2011 LOW <sup>9</sup>Result Comment: Test Performed at: [facility] [id number] [place] [address] Denise Mayer MD, PhD [facility] CHEMISTRY Glucose Lvl 161 11/14/2011 NA <sup>4</sup>Interpretive Data: Reference Ranges : 0 - 7 days : 41 - 90 mg/dL 7 days - 150 yrs : 70 - 99 mg/dL (fasting), based on the clinical recommendations of the [place] [employer]. [facility] CHEMISTRY BUN 10 7 - 22 11/14/2011 Normal [facility] CHEMISTRY CO2 22 24 - 32 11/14/2011 LOW [facility] [facility] CHE[facility] Chloride Lvl 104 95 - 109 11/14/2011 Normal [facility] CHEMISTRY Calcium Lvl 7.9 8.5 - 10.5 11/14/2011 LOW [facility] CHEMISTRY Creatinine Lvl 0.7 0.5 - 1.4 11/14/2011 Normal [facility] CHEMISTRY Sodium Lvl 137 135 - 145 11/14/2011 Normal [facility] CHEMISTRY Potassium Lvl 4.8 3.5 - 5.1 11/14/2011 Normal [facility] CHEMISTRY AGAP 15.8 10.0 - 20.0 11/14/2011 Normal [facility] HEMATOLOGY Basophils # 0.0 0.0 - 0.2 11/14/2011 Normal [facility] HEMATOLOGY Lymphocytes 22.7 20.0 - 40.0 11/14/2011 Normal [facility] HEMATOLOGY Eosinophils # 0.2 0.0 - 0.5 11/14/2011 Normal [facility] HEMATOLOGY Lymphocytes # 2.4 1.0 - 5.5 11/14/2011 [facility] HEMATOLOGY Monocytes # 0.9 0.0 - 0.8 11/14/2011 [facility] HEMATOLOGY Segs-Bands # 7.1 1.5 - 8.1 11/14/2011 [facility] HEMATOLOGY Basophils 0.2 0.0 - 1.0 11/14/2011 [facility] HEMATOLOGY Segs 67.1 45.0 - 75.0 11/14/2011 [facility] HEMATOLOGY Monocytes 8.4 2.0 - 12.0 11/14/2011 [facility] HEMATOLOGY Eosinophils 1.6 0.0 - 4.0 11/14/2011 [facility] HEMATOLOGY MCH 28.8 27.0 - 31.0 11/14/2011 [facility] HEMATOLOGY MCHC 33.5 32.0 - 36.0 11/14/2011 [facility] HEMATOLOGY RDW 14.5 11.5 - 14.5 11/14/2011 [facility] HEMATOLOGY Platelet 171 133 - 450 11/14/2011 [facility] HEMATOLOGY MPV 7.2 7.4 - 10.4 11/14/2011 [facility] HEMATOLOGY MCV 85.9 81.0 - 99.0 11/14/2011 [facility] HEMATOLOGY Hct 33.4 36.0 - 48.0 11/14/2011 [facility] HEMATOLOGY Hgb 11.2 12.0 - 16.0 11/14/2011 [facility] HEMATOLOGY RBC 3.88 4.20 - 5.40 11/14/2011 [facility] HEMATOLOGY WBC 10.6 3.7 - 10.4 11/14/2011 [facility] CHEMISTRY TSH 1.170 0.360 - 3.740 11/13/2011 [facility] CHEMISTRY Hgb A1C 8.5 11/13/2011 [...] 240 Poor Control, take action to lower [facility] CHEMISTRY Magnesium Lvl 1.8 1.8 - 2.4 11/13/2011 Normal [facility] CHEMISTRY Phosphorus 2.9 2.5 - 4.5 11/13/2011 Normal [facility] CHEMISTRY A/G Ratio 0.9 0.7 - 1.6 11/13/2011 Normal [facility] CHEMISTRY Globulin 4.0 2.0 - 4.0 11/13/2011 Normal [facility] CHEMISTRY B/C Ratio 21 6 - 25 11/13/2011 Normal [facility] CHEMISTRY AGAP 14.6 10.0 - 20.0 11/13/2011 Normal [facility] CHEMISTRY Albumin Lvl 3.4 3.5 - 5.0 11/13/2011 LOW [facility] CHEMISTRY ALT 37 0 - 65 11/13/2011 Normal [facility] CHEMISTRY AST 21 0 - 37 11/13/2011 Normal [facility] CHEMISTRY Alk Phos 175 39 - 136 11/13/2011 HI [facility] CHEMISTRY Bili Total 0.2 0.2 - 1.3 11/13/2011 Normal [facility] CHEMISTRY Total Protein 7.4 6.4 - 8.4 11/13/2011 Normal [facility] CHEMISTRY CO2 26 24 - 32 11/13/2011 Normal [facility] CHEMISTRY Calcium Lvl 9.2 8.5 - 10.5 11/13/2011 Normal [facility] CHEMISTRY Potassium Lvl 3.6 3.5 - 5.1 11/13/2011 Normal [facility] CHEMISTRY Chloride Lvl 102 95 - 109 11/13/2011 Normal [facility] CHEMISTRY Glucose Lvl 193 11/13/2011 NA <sup>5</sup>Interpretive Data: Reference Ranges : 0 - 7 days : 41 - 90 mg/dL 7 days - 150 yrs : 70 - 99 mg/dL (fasting), based on the clinical recommendations of the [place] [employer]. [facility] CHEMISTRY Creatinine Lvl 0.9 0.5 - 1.4 11/13/2011 Normal [facility] CHEMISTRY BUN 19 7 - 22 11/13/2011 Normal [facility] CHEMISTRY Sodium Lvl 139 135 - 145 11/13/2011 Normal [facility] HEMATOLOGY INR 0.89 0.85 - 1.17 11/13/2011 Normal <sup>10</sup>Interpretive Data: RECOMMENDED RANGES FOR PROTIME INR: 2.0-3.0 for most medical and surgical thromboembolic states. 2.5-3.5 for artificial heart valves and recurrent embolism. INR SHOULD BE USED ONLY FOR PATIENTS ON STABLE ANTICOAGULANT THERAPY. [facility] HEMATOLOGY PT 12.1 12.0 - 14.7 11/13/2011 Normal [facility] HEMATOLOGY PTT 20.1 22.9 - 35.8 11/13/2011 LOW <sup>11</sup>Interpretive Data: Heparin Therapeutic Range: 57 - 92 Seconds [facility] HEMATOLOGY Plt Morph Normal (11/12/2011 22:00:00) 11/13/2011 Normal [facility] HEMATOLOGY RBC Morph Normal (11/12/2011 22:00:00) 11/13/2011 Normal [facility] BLOOD BANK RESULTS ABO/Rh O NEG 11/13/2011 Unknown [facility] BLOOD BANK RESULTS Antibody Scrn Negative (11/12/2011 21:42:00) 11/13/2011 Normal [facility] Pathology Reports No Data Provided for This Section Diagnostic Reports Report Value Date Source Neck soft tissue w/wo contrast CT EXAM: Neck soft tissue w/wo contrast CT DATE: 10/06/2018 9:34 [employer] INDICATION: - R07.0 Pain in throat COMPARISON: [...] cervical spine. IMPRESSION: Unremarkable CT neck 10/06/2018 [facility] Breast Limited Uni US LIMITED ULTRASOUND OF RIGHT BREAST: 08/18/2017 CLINICAL: Right Breast Mass/Right Breast Mass On Screening Mammogram. COMPARISON:Comparison is made to exams dated: 05/11/2012 ultrasound, 07/26/2017 mammogram, 05/11/2012 mammogram, 04/27/2012 mammogram - [facility], 12/01/2011 mammogram, and 01/04/2009 mammogram - [facility]. TECHNIQUE: Color flow and real-time ultrasound of [...] is recommended.(08/19/2018) This exam was interpreted at [id number] for GRAEME Gould. Professional services are provided by the [facility] [employer] [facility] Division of Diagnostic Imaging. Kiran Burks M.D. cm/penrad:08/18/2017 11:05:30 Vending [address] Driver(s): Mariah Jolley [facility] letter sent: BI-RADS 1/2 Ultrasound BI-RADS: 2 Benign 08/18/2017 GRAEME Gould Breast Mammo Scrn CARLOS incl CAD MA BILATERAL DIGITAL SCREENING MAMMOGRAM WITH CAD: 07/26/2017 CLINICAL: Routine/Screening. Current study was evaluated with a Computer Aided Detection (CAD) system. COMPARISON:Comparison is made to exams dated: 05/11/2012 mammogram, 04/27/2012 mammogram - [facility], 12/01/2011 mammogram, 01/04/2009 mammogram - [facility], 01/04/2009 mammogram, and 02/20/2005 mammogram - [facility]. TECHNIQUE: Mammographic views were obtained using digital [...] are recommended. This exam was interpreted at [id number] for FERNANDO Munoz 15. Kiran Burks M.D., cm/penrad:07/27/2017 11:09:[address] Driver(s): RT Aleena(R)(M), [facility] letter sent: BI-RADS 0 Mammogram BI-RADS: 0 [...] intracranial abnormalities are visualized. SL: 16 09/12/2014 [facility] Chest 1view CHEST RADIOGRAPH SINGLE VIEW INDICATION: Chest pain COMPARISON: Chest radiograph 11/12/2011 IMPRESSION: Evaluation is limited by under inflation of the lungs and patient body habitus. The cardiac silhouette appears prominent, associated with possible mild pulmonary vascular congestion. SL: 16 09/12/2014 [facility] Consultation Notes No Data Provided for This Section Discharge Summaries No Data Provided for This Section History and Physicals No Data Provided for This Section Vital Signs Vital Sign Value Date Comments Source Temperature Oral (F) 98.9 F 09/12/2014 [facility] Heart Rate 102 09/12/2014 [facility] Respitory Rate 20 09/12/2014 [facility] Systolic (mm Hg) 148 09/12/2014 [facility] Diastolic (mm Hg) 76 09/12/2014 [facility] Height 162.56 cm 09/12/2014 [facility] Weight 100 09/12/2014 [facility] Systolic (mm Hg) 152 09/12/2014 [facility] Heart Rate 110 09/12/2014 [facility] Diastolic (mm Hg) 73 09/12/2014 [facility] Temperature Oral (F) 100.1 F 09/12/2014 [facility] Respitory Rate 20 09/12/2014 [facility] BMI Calculated 37.84 09/12/2014 [facility] Respitory Rate 18 11/18/2011 [facility] Temperature Oral (F) 98.1 F 11/18/2011 [facility] Diastolic (mm Hg) 56 11/18/2011 [facility] Systolic (mm Hg) 143 11/18/2011 [facility] Heart Rate 76 11/18/2011 [facility] Temperature Oral (F) 98.2 F 11/18/2011 [facility] Heart Rate 66 11/18/2011 [facility] Respitory Rate 20 11/18/2011 [facility] Systolic (mm Hg) 125 11/18/2011 [facility] Diastolic (mm Hg) 56 11/18/2011 [facility] Respitory Rate 18 11/18/2011 [facility] Systolic (mm Hg) 109 11/18/2011 [facility] Diastolic (mm Hg) 51 11/18/2011 [facility] Temperature Oral (F) 98.0 F 11/18/2011 [facility] Heart Rate 97 11/18/2011 [facility] Weight 101.364 11/13/2011 [facility] Height 162.56 cm 11/13/2011 [facility] Encounters Location Location Details Encounter Type Encounter Number Reason For Visit Attending Provider ADM Date DC Date Status Source [facility] Inpatient [id number] OPEN RT ANKLE GAEL ARMIDA 11/13/2011 11/18/2011 Active [facility] [id number] Fazal Yousif 09/12/2014 09/12/2014 [facility] [place] OP Therapy Patients [id number] Nadir Chatterjee 11/23/2014 12/23/2014 [facility] [place] [facility] [place] OP [facility] Patients [id number] Nadir Chatterjee 12/25/2014 01/24/2015 [facility] [place] [facility] Outpatient Imaging - [place] Out[facility] Di[facility] Services [id number] Flex Pena 07/26/2017 07/27/2017 [facility] [place] [facility] Outpatient Imaging - [place] Outpt Diag Services [id number] Flex Pena 08/18/2017 08/19/2017 [facility] [place] [facility] [place] Out[facility] Diag Services [id number] Shu Seaman 10/06/2018 [facility] [place] Procedure Code Date Perfomer Comments Source Mastectomy of left breast [id number] EDGAR Gould,[facility] [place], [facility] [place] [facility] operation [id number] EDGAR Gould,[facility] [place], [place] Assessment and Plan No Data Provided for [...] No; Reg Smoking Cessation Counseling No 09/12/2014 [facility] [place] Social History TypeResponse Smoking Status Unknown if ever smoked, Exposure to Tobacco Smoke None, Cigarette Smoking Last 365 Days No, Reg Smoking Cessation Counseling No 09/12/2014 [facility] Family History No Data Provided for This Section Advance Directives No Data Provided for This Section Functional Status No Data Provided for This Section
[2019-05-17] MEDS ORDERED: HYDROCODONE/APAP 7.5MG-325MG 1 EA TAB ONE (17:55)
[2019-05-17] MEDS ORDERED: HYDROCODONE/APAP 7.5MG-325MG 1 EA TAB PO PRN (18:00)
--- NOTE | 2019-05-17 18:44 | Diagnostic Imaging Report ---
Radiographs of the right wrist. Radiographs of the right forearm. Radiographs of the right elbow. HISTORY: Pain COMPARISON: None available. FINDINGS: Bones: No acute displaced fracture. Osseous alignment is within normal limits. Joints: Scattered degenerative changes. No osseous erosion Soft tissues: The soft tissues appear unremarkable. IMPRESSION: Scattered degenerative changes. No osseous erosion Signed by: Dr. Jaleel Choe M.D. on 05/17/2019 6:40 PM
--- NOTE | 2019-05-17 19:56 | Diagnostic Imaging Report ---
Radiographs of the right hand. HISTORY: Pain COMPARISON: None available. FINDINGS: Bones: No acute displaced fracture. Osseous alignment is within normal limits. Joints: Scattered degenerative changes. No osseous erosion Soft tissues: The soft tissues appear unremarkable. IMPRESSION: Scattered degenerative changes. No osseous erosion Signed by: Dr. Jaleel Choe M.D. on 05/17/2019 6:45 PM
--- NOTE | 2019-05-17 19:57 | Diagnostic Imaging Report ---
CT BRAIN WO HISTORY: 84-year-old female status post fall COMPARISON: Report of CT brain from 05/17/2013, prior images are not available for comparison at the time of interpretation. TECHNIQUE: Noncontrast axial scans were obtained from skull base to the vertex. Coronal and sagittal reconstructions obtained from the axial data. One or more of the following dose reduction techniques were used: Automated exposure control, adjustment of the mA and/or kV according to patient size, and/or utilization of iterative reconstruction technique. DISCUSSION: Scalp/Skull: Unremarkable. Brain sulci: Appropriate for patient's age. Ventricles: Normal in size and configuration. No hydrocephalus. Extra-axial spaces: No masses or fluid collections. Parenchyma: Multifocal hypoattenuating foci are seen in the periventricular and deep tentorial white matter consistent with chronic small vessel ischemic changes. 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 No mass, hemorrhage, or large vascular territory acute infarct. Multiple punctate physiologic calcifications within the bilateral globus pallidus. Multiple punctate dystrophic calcification within the right centrum semiovale may represent underlying vascular malformation as mentioned in prior study or represent a sequele of prior infectious/inflammatory process. Dural sinuses: No abnormal densities. Sellar/Suprasellar region: Intact. Skull base: Intact. Incidental findings: Mild mucosal thickening of the left maxillary sinus. IMPRESSION: 1. No acute intracranial abnormalities. 2. Moderate chronic microvascular ischemic changes. 3. 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 4. Generalized age-related cerebral volume loss. This preliminary report was dictated by Dr. Brendan Solorzano M.D. neuroradiology fellow at 1854 hours on 05/17/2019. I have reviewed the images and agree with findings in the preliminary report. Signed by: Dr. Lor Perry M.D. on 05/17/2019 7:56 PM
--- NOTE | 2019-05-17 19:58 | Diagnostic Imaging Report ---
CT CERVICAL SPINE WO HISTORY: 84-year-old female status post fall COMPARISON: None. TECHNIQUE: CT of the cervical spine without contrast. Sagittal and coronal reformations were created. One or more of the following dose reduction techniques were used: Automated exposure control, adjustment of the mA and/or kV according to patient size, and/or utilization of iterative reconstruction technique. FINDINGS: Cervical lordosis is preserved. Leftward curvature of the upper cervical spine is felt to be secondary to patient position. No fractures, compression deformity, or destructive osseous lesions are seen. Multilevel moderate degenerative disc changes from C5-C7 with associated posterior disc osteophyte complexes result in moderate spinal canal stenosis at C5-C6 and mild spinal canal stenosis at C6-C7. Mild left foraminal stenosis due to facet and uncovertebral arthrosis at C5-C6 and C6-C7. The craniocervical junction is intact. No gross spinal canal masses are seen. No apical pneumothoraces are seen. The paravertebral and paraspinal soft tissues are unremarkable. IMPRESSION: 1. No acute cervical spine abnormalities. 2. Cervical spondylosis as detailed above. 3. Ligament, spinal cord and or vascular abnormalities cannot be excluded on the basis of this examination. This preliminary report was issued by Dr. Brendan Solorzano M.D. neuroradiology fellow at 1905 hours on 05/17/2019. I have reviewed the images and agree with findings in the preliminary report. Signed by: Dr. Lor Perry M.D. on 05/17/2019 7:51 PM
[2019-05-17 22:59] VITALS: BP 152/74
== END 2019-05-17 21:08 | disposition home or self-care (01) ==
LOC: ER 17:16
DX: S00.83XA Contusion of other part of head, initial encounter (principal); S63.521A Sprain of radiocarpal joint of right wrist, initial encounter; M79.641 Pain in right hand; W18.12XA Fall from or off toilet with subsequent striking against object, initial encounter; Y92.002 Bathroom of unspecified non-institutional (private) residence as the place of occurrence of the external cause; E11.9 Type 2 diabetes mellitus without complications; E03.9 Hypothyroidism, unspecified; E66.01 Morbid (severe) obesity due to excess calories; Z95.5 Presence of coronary angioplasty implant and graft
CPT/HCPCS: 70450; 72125; 99283

== ENCOUNTER → 2019-08-04 | Outpatient (CLI) | payer MEDICARE, OTHER ==
[2019-08-04 09:38] LABS: BASOPHILS # (AUTO) 0.1 (0.0-0.1); BASOPHILS % 0.6 % (0.0-1.0); EOSINOPHILS # (AUTO) 0.1 (0.0-0.4); EOSINOPHILS % 1.5 % (0.0-6.0); HEMATOCRIT 39.3 % (34.2-44.1); HEMOGLOBIN 12.7 g/dL (12.0-16.0); LYMPHOCYTES # (AUTO) 2.4 (1.0-3.2); LYMPHOCYTES % 28.3 % (18.0-39.1); MEAN CORPUSCULAR HGB CONC 32.3 g/dL (31-35); MEAN CORPUSCULAR VOLUME 89.7 fL (81-99); MONOCYTES # (AUTO) 0.5 (0.2-0.8); MONOCYTES % 5.3 % (4.4-11.3); NEUTROPHILS # (AUTO) 5.4 (2.1-6.9); NEUTROPHILS % 63.7 % (38.7-80.0); PLATELET COUNT 192 x10e3/uL (140-360); RED BLOOD COUNT 4.38 x10e6/uL (3.6-5.1)
[2019-08-04 10:04] LABS: ALANINE AMINOTRANSFERASE 10 IU/L (0-55); ALBUMIN/GLOBULIN RATIO 1.1 (0.8-2.0); ALKALINE PHOSPHATASE 106 IU/L (40-150); AMYLASE 26 U/L (25-125); ANION GAP 13.9 mmol/L (8-16); BLOOD UREA NITROGEN 13 mg/dL (7-26); BUN/CREATININE RATIO 19 (6-25); CALCIUM 9.5 mg/dL (8.4-10.2); CARBON DIOXIDE 23 mmol/L (22-29); CHLORIDE 106 mmol/L (98-107); CREATININE, SERUM 0.69 mg/dL (0.57-1.11); EST GLOMERULAR FILTRATION RATE > 60 ML/MIN (60-); GLUCOSE 145 mg/dL (74-118); POTASSIUM 3.9 mmol/L (3.5-5.1); SODIUM 139 mmol/L (136-145)
[2019-08-04 11:59] LABS: THYROID STIMULATING HORMONE 5.047 uIU/mL (0.350-4.940)
[2019-08-04 13:41] LABS: COLOR,URINE YELLOW (YELLOW); KETONES,URINE NEGATIVE (NEGATIVE); LEUKOCYTE ESTERASE ,URINE TRACE (NEGATIVE); NITRITE,URINE POSITIVE (NEGATIVE); PROTEIN,URINE DIPSTICK NEGATIVE (NEGATIVE)
[2019-08-04 13:42] LABS: BILIRUBIN,URINE NEGATIVE (NEGATIVE); CLARITY,URINE SL CLOUDY (CLEAR); URINE UROBILINOGEN 0.2 mg/dL (0.2 - 1)
[2019-08-04 13:58] LABS: WBC,URINE (MAN) >50 /HPF (0-5)
[2019-08-04 13:59] LABS: BACTERIA,URINE MANY /HPF; EPITHELIAL CELLS,URINE FEW /LPF; HYALINE CASTS 0-1 (0-1); MUCUS,URINE MANY (RARE); RBC,URINE 0-5 /HPF (0-5)
== END ==
LOC: LAB 09:07
PROVIDERS: ATTEND Internal Medicine Cardiovascular Disease
DX: E11.65 Type 2 diabetes mellitus with hyperglycemia (principal); I25.119 Atherosclerotic heart disease of native coronary artery with unspecified angina pectoris; I48.0 Paroxysmal atrial fibrillation; N39.0 Urinary tract infection, site not specified; E03.9 Hypothyroidism, unspecified
CPT/HCPCS: 36415; 80053; 81001; 82150; 83036; 84439; 84443; 85025; 87086; 87186

== ENCOUNTER → 2021-06-19 | Outpatient (CLI) | payer MEDICARE, OTHER | LOC: MAMMO 11:35 | PROVIDERS: ATTEND Internal Medicine | DX: Z12.31 Encounter for screening mammogram for malignant neoplasm of breast (principal) | CPT/HCPCS: 77067 ==

== ENCOUNTER 2022-05-27 09:06 | Inpatient (IN) | payer MEDICARE, OTHER ==
[~2022-05-27] VITALS: Ht 152.4 cm; Wt 72.6 kg
[2022-05-27 09:27] LABS: BASOPHILS # (AUTO) 0.1 (0.0-0.1); BASOPHILS % 0.4 % (0.0-1.0); EOSINOPHILS # (AUTO) 0.1 (0.0-0.4); EOSINOPHILS % 0.8 % (0.0-6.0); HEMATOCRIT 44.7 % (34.2-44.1); LYMPHOCYTES # (AUTO) 3.2 (1.0-3.2); LYMPHOCYTES % 28.3 % (18.0-39.1); MEAN CORPUSCULAR HEMOGLOBIN 28.9 pg (28-32); MEAN CORPUSCULAR HGB CONC 31.3 g/dL (31-35); MEAN CORPUSCULAR VOLUME 92.4 fL (81-99); MONOCYTES # (AUTO) 0.8 (0.2-0.8); MONOCYTES % 6.8 % (4.4-11.3); NEUTROPHILS # (AUTO) 7.2 (2.1-6.9); NEUTROPHILS % 63.2 % (38.7-80.0); PLATELET COUNT 247 x10e3/uL (140-360); RED BLOOD COUNT 4.84 x10e6/uL (3.6-5.1); RED CELL DISTRIBUTION WIDTH 14.5 % (11.7-14.4)
[2022-05-27 09:37] LABS: CLARITY,URINE SL CLOUDY (CLEAR); COLOR,URINE YELLOW (YELLOW)
[2022-05-27 09:38] LABS: KETONES,URINE NEGATIVE (NEGATIVE); LEUKOCYTE ESTERASE ,URINE NEGATIVE (NEGATIVE); NITRITE,URINE NEGATIVE (NEGATIVE); PROTEIN,URINE DIPSTICK NEGATIVE (NEGATIVE); URINE UROBILINOGEN 0.2 mg/dL (0.2 - 1)
[2022-05-27] MEDS ORDERED: DEXTROSE 5% 1,000 ML IV ONE (09:41)
[2022-05-27 10:00] LABS: BACTERIA,URINE MODERATE /HPF; EPITHELIAL CELLS,URINE FEW /LPF; WBC,URINE (MAN) 0-5 /HPF (0-5)
[2022-05-27] MEDS ORDERED: DEXTROSE 50% SYRINGE 50 ML IV STA (10:02)
[2022-05-27 11:04] LABS: ALBUMIN 3.5 g/dL (3.5-5.0); ALBUMIN/GLOBULIN RATIO 0.9 (0.8-2.0); ANION GAP 12.7 mmol/L (8-16); CALCIUM 9.8 mg/dL (8.4-10.2); CREATININE, SERUM 0.78 mg/dL (0.57-1.11); POTASSIUM 4.7 mmol/L (3.5-5.1)
[2022-05-27 13:29] VITALS: BP 124/42
[2022-05-27 13:48] VITALS: BP 124/42
[2022-05-27 15:50] VITALS: BP 150/74
[2022-05-27 16:11] VITALS: BP 143/66
[2022-05-27 20:15] VITALS: BP 162/70
[2022-05-27] MEDS ORDERED: MELATONIN 3 MG TAB PO ONE (22:30)
[2022-05-27] MEDS ORDERED: DEXTROSE 50% SYRINGE 50 ML IV PRN (22:45)
[2022-05-27] MEDS ORDERED: ONDANSETRON HCL INJ 2MG/ML 2ML 2 MG/ML VIAL IV PRN (22:45)
[2022-05-27] MEDS ORDERED: HYDRALAZINE HCL 25 MG TAB PO PRN (22:45)
[2022-05-28] VITALS (7 sets, daily range): BP systolic 93–138; BP diastolic 49–66
[2022-05-28 05:44] LABS: BASOPHILS # (AUTO) 0.1 (0.0-0.1); BASOPHILS % 0.5 % (0.0-1.0); EOSINOPHILS # (AUTO) 0.3 (0.0-0.4); EOSINOPHILS % 2.8 % (0.0-6.0); HEMATOCRIT 38.9 % (34.2-44.1); HEMOGLOBIN 12.8 g/dL (12.0-16.0); LYMPHOCYTES # (AUTO) 3.2 (1.0-3.2); LYMPHOCYTES % 34.9 % (18.0-39.1); MEAN CORPUSCULAR HEMOGLOBIN 29.2 pg (28-32); MEAN CORPUSCULAR HGB CONC 32.9 g/dL (31-35); MEAN CORPUSCULAR VOLUME 88.8 fL (81-99); MONOCYTES # (AUTO) 0.6 (0.2-0.8); MONOCYTES % 6.6 % (4.4-11.3); NEUTROPHILS # (AUTO) 5.1 (2.1-6.9); NEUTROPHILS % 54.6 % (38.7-80.0); PLATELET COUNT 201 x10e3/uL (140-360); RED BLOOD COUNT 4.38 x10e6/uL (3.6-5.1); RED CELL DISTRIBUTION WIDTH 14.1 % (11.7-14.4)
[2022-05-28 06:09] LABS: ANION GAP 14.2 mmol/L (8-16); CALCIUM 9.3 mg/dL (8.4-10.2); CREATININE, SERUM 0.71 mg/dL (0.57-1.11); POTASSIUM 4.2 mmol/L (3.5-5.1)
[2022-05-28 06:52] LABS: THYROID STIMULATING HORMONE 6.012 uIU/mL (0.350-4.940)
[2022-05-28] MEDS: INSULIN LISPRO 100 UNIT/1 ML 3ML VIAL SQ SCH ×4 (07:30→21:00)
[2022-05-28] MEDS: LEVOTHYROXINE SODIUM 50 MCG TAB PO SCH (09:00)
[2022-05-28] MEDS ORDERED: SODIUM CHLORIDE 0.9% 250ML 250 ML ONE (09:30)
[2022-05-28 15:26] LABS: FREE T4 (FREE THYROXINE) 0.74 ng/dL (0.8-1.8)
[2022-05-29] VITALS (7 sets, daily range): BP systolic 113–137; BP diastolic 48–66
[2022-05-29] MEDS: INSULIN LISPRO 100 UNIT/1 ML 3ML VIAL SQ SCH ×4 (07:30→21:00)
[2022-05-29] MEDS: LEVOTHYROXINE SODIUM 50 MCG TAB PO SCH (08:00)
[2022-05-29] MEDS ORDERED: ONDANSETRON HCL 4 MG ORAL DISINTEGRATING TAB PO PRN (11:15)
[2022-05-30] VITALS (8 sets, daily range): BP systolic 105–146; BP diastolic 50–77
[2022-05-30] MEDS: LEVOTHYROXINE SODIUM 50 MCG TAB PO SCH (06:41)
[2022-05-30] MEDS: INSULIN LISPRO 100 UNIT/1 ML 3ML VIAL SQ SCH ×4 (10:03→21:00)
[2022-05-30] MEDS ORDERED: INSULIN GLARGINE 100 UNITS/ML VIAL SQ SCH (21:00)
[2022-05-30] MEDS: ACETAMINOPHEN 325 MG TAB PO PRN (21:46)
[2022-05-30] MEDS ORDERED: MELATONIN 3 MG TAB PO PRN (23:45)
[2022-05-30] MEDS: MELATONIN 3 MG TAB PO PRN (23:55)
[2022-05-31] VITALS (9 sets, daily range): BP systolic 117–137; BP diastolic 50–98
[2022-05-31] MEDS: LEVOTHYROXINE SODIUM 50 MCG TAB PO SCH (06:15)
[2022-05-31] MEDS: INSULIN LISPRO 100 UNIT/1 ML 3ML VIAL SQ SCH ×4 (09:18→20:21)
[2022-05-31] MEDS ORDERED: INSULIN ASPART 70/30 100 UNITS/ML VIAL SC SCH (16:30)
[2022-05-31] MEDS: MELATONIN 3 MG TAB PO PRN (20:27)
[2022-05-31] MEDS ORDERED: INSULIN GLARGINE 100 UNITS/ML VIAL SQ SCH (21:00)
[2022-06-01 00:48] VITALS: BP 135/65
[2022-06-01] MEDS: ACETAMINOPHEN 325 MG TAB PO PRN (03:41)
[2022-06-01 04:00] VITALS: BP 137/63
[2022-06-01 05:35] LABS: BASOPHILS # (AUTO) 0.1 (0.0-0.1); BASOPHILS % 0.5 % (0.0-1.0); EOSINOPHILS # (AUTO) 0.2 (0.0-0.4); HEMATOCRIT 40.4 % (34.2-44.1); HEMOGLOBIN 12.7 g/dL (12.0-16.0); LYMPHOCYTES # (AUTO) 2.6 (1.0-3.2); LYMPHOCYTES % 27.8 % (18.0-39.1); MEAN CORPUSCULAR HGB CONC 31.4 g/dL (31-35); MEAN CORPUSCULAR VOLUME 92.2 fL (81-99); MONOCYTES # (AUTO) 0.6 (0.2-0.8); MONOCYTES % 5.9 % (4.4-11.3); NEUTROPHILS % 63.3 % (38.7-80.0); PLATELET COUNT 209 x10e3/uL (140-360); RED BLOOD COUNT 4.38 x10e6/uL (3.6-5.1); RED CELL DISTRIBUTION WIDTH 13.3 % (11.7-14.4)
[2022-06-01 06:03] LABS: ANION GAP 14.2 mmol/L (8-16); CALCIUM 9.2 mg/dL (8.4-10.2); CREATININE, SERUM 0.76 mg/dL (0.57-1.11); POTASSIUM 4.2 mmol/L (3.5-5.1)
[2022-06-01] MEDS: LEVOTHYROXINE SODIUM 50 MCG TAB PO SCH (06:05)
[2022-06-01] MEDS: INSULIN LISPRO 100 UNIT/1 ML 3ML VIAL SQ SCH ×2 (07:30→11:30)
[2022-06-01] MEDS ORDERED: INSULIN ASPART 70/30 100 UNITS/ML VIAL SC SCH (07:30)
[2022-06-01 07:34] VITALS: BP 149/64
[2022-06-01 07:50] VITALS: BP 149/64
== END 2022-06-01 13:06 | disposition home or self-care (01) | DRG 637 ==
LOC: ER 09:18 → ERHOLD 10:42 → EEVIPCON 10:42 → INTOOBSV 10:42 → OBSVTOIN 10:42 → MED/SURG2 12:10 → EEVIPCON 05-28 09:28 → OBSVTOIN 05-28 09:28 → MED/SURG2 05-28 13:55
PROVIDERS: ADMIT Internal Medicine; ATTEND Internal Medicine
DX: E11.649 Type 2 diabetes mellitus with hypoglycemia without coma (principal); G93.41 Metabolic encephalopathy; N39.0 Urinary tract infection, site not specified; E03.9 Hypothyroidism, unspecified; E66.9 Obesity, unspecified; Z68.31 Body mass index [BMI] 31.0-31.9, adult; F03.90 Unspecified dementia, unspecified severity, without behavioral disturbance, psychotic disturbance, mood disturbance, and anxiety; R33.9 Retention of urine, unspecified; E11.40 Type 2 diabetes mellitus with diabetic neuropathy, unspecified; Z79.4 Long term (current) use of insulin; Z20.822 Contact with and (suspected) exposure to COVID-19
CPT/HCPCS: 0223U; 36415; 51700; 70450; 71045; 80048; 80053; 81001; 82607; 82746; 82948; 83036; 83605; 83970; 84439; 84443; 84484; 84681; 85025; 86376; 87040; 87086; 93005; 94799; 99251; 99285; G0378; J0696; J1815; J7050; J7070